=== PATIENT | male | born 1960 | race Caucasian/White ===

== ENCOUNTER 2017-10-04 09:00 | Outpatient (RCR) | payer OTHER, SELFPAY ==
--- NOTE | 2017-09-13 11:36 | PT.OTN ---
Addendum entered and electronically signed by Ciera Hernandez, PT 09/13/17 13:28: Transition note: On September 13, 2017 our therapy services consisting of Speech, Occupational, and Physical Therapy transitioned from the [employer] electronic documentation system to a new [employer] electronic documentation system.?? All documentation prior to September 13 can be found under [employer] saved data. From September 13 forward all medical record documentation will be in [employer] 6.1. Original Note: Physical Therapy Treatment Note PT-OP-C Subjective Start: 09/13/17 11:10 Freq: Status: Active Protocol: Activity Type Activity Date Activity User E-Sign Co-Sign Detail Recorded Client Recorded Date Recorded By Document 09/13/17 11:12 [facility] [email or web address] 09/13/17 11:34 [facility] 09/13/17 11:12 OP-PT Subjective [Patient Comments] -Patient Comments Pt reports he has increased his weights for his lifting, but just notes general muscle soreness (B) from taking time off from lifting. Reports he noticed when diong all pulling & twisting motion at work, he is doing a lot of twisting. -Patient Reported Progress Improving PT-OP-Q Treatments Start: 09/13/17 11:10 Freq: Status: Active Protocol: Activity Type Activity Date Activity User E-Sign Co-Sign Detail Recorded Client Recorded Date Recorded By Document 09/13/17 11:12 [facility] [email or web address] 09/13/17 11:34 [facility] 09/13/17 11:12 Therapeutic Exercises [Supine Exercises] 2 -Supine Exercise Name Foam roll: Habd , abd, flex -Reps/Minutes 4 -Comments stopped abd d/t pain 1 -Supine Exercise Name chest press -Side bilateral -Resistance 12# each hand -Reps/Minutes x10 [Prone Exercises] 2 -Prone Exercise Name 90/90 ER -Side bilateral -Resistance 0#- 2# were painful -Reps/Minutes 12 -Comments w/cueing for LT activaition 1 -Prone Exercise Name scaption -Side bilateral -Resistance 2# -Reps/Minutes 15 -Comments w/cueing for LT activation [Sitting Exercises] 1 -Sitting Exercise Name 1st rib self mob -Side right -Comments SB with scapular depression Manual Therapy Treatment [Soft Tissue Mobilization] 1 -Body Location scalenes -Mobilization Type Sustained Pressure -Intensity/Depth Moderate -Body Position Sidelying -Comments x8' [Joint Mobilizations] 2 -Joint 1st rib mob -Grade III -Body Position Sitting -Reps/Duration 4 min -Comments FM w/ sidebending of neck 1 -Joint Thoracic -Grade III -Reps/Duration 12 min -Comments PA T1-2 FM w/ cover position transverse T1-3 L FM w/cover position PA & UPA with deep breathing & HAbd T3-7 Neuro Re-Education Treatment [Movement Re-Education] -Movement Re-education Activities PNF scapular post depression COI x6 min R Self-Care/Home Management Treatment [Education] -Patient Education Home Exercise Program -Caregiver Education edu to do stretches after working d/t work requiring poor posture x3 ' PT-OP-T Assessment and Plan Start: 09/13/17 11:10 Freq: Status: Active Protocol: Activity Type Activity Date Activity User E-Sign Co-Sign Detail Recorded Client Recorded Date Recorded By Document 09/13/17 11:12 [facility] [email or web address] 09/13/17 11:34 [facility] 09/13/17 11:12 Physical Therapy Assessment [Assessment Summary] -Assessment Pt is improving with his ROM, but is limited in upper rib & thoracic mobility, which creates inc tension on UT during exercises. Pt has tight scalenes & still impaired scapulohumeral mechanics. Physical Therapy Plan [Next Visit Focus/Plan] -Next Visit Plan Re-eval ROM & strength. Cont end range PNF patterns w/ SC & AC mobs Current Diagnoses Pain in right shoulder (09/13/17) Bicipital tendinitis, right shoulder (09/13/17) Abnormal posture (09/13/17) Weakness (09/13/17)
--- NOTE | 2017-09-20 09:50 | PT.OTN ---
Current Diagnoses Pain in right shoulder (09/20/17) Bicipital tendinitis, right shoulder (09/20/17) Abnormal posture (09/20/17) Weakness (09/20/17) Physical Therapy Treatment Note PT-OP-A Visit Information Start: 09/20/17 09:00 Freq: Status: Active Protocol: Activity Type Activity Date Activity User E-Sign Co-Sign Detail Recorded Client Recorded Date Recorded By Document 09/20/17 09:00 [facility] [id number] 09/20/17 09:49 [facility] 09/20/17 09:00 Out-Patient Physical Therapy Visit Information [Visit Information] -Visit Type Treatment Note -Visit Start Time 09:00 -Visit Stop Time 09:45 -Total Visit Minutes 45 -Number of TOPOGRAPHICAL SURVEYOR Visits 0 PT-OP-C Subjective Start: 09/13/17 11:10 Freq: Status: Active Protocol: Activity Type Activity Date Activity User E-Sign Co-Sign Detail Recorded Client Recorded Date Recorded By Document 09/20/17 09:00 [facility] [id number] 09/20/17 09:49 [facility] 09/20/17 09:00 OP-PT Subjective [Patient Comments] -Patient Comments Reports cont aching but overall better. PT-OP-Q Treatments Start: 09/13/17 11:10 Freq: Status: Active Protocol: Activity Type Activity Date Activity User E-Sign Co-Sign Detail Recorded Client Recorded Date Recorded By Document 09/20/17 09:00 [facility] [id number] 09/20/17 09:49 [facility] 09/20/17 09:00 Therapeutic Exercises [Supine Exercises] 1 -Supine Exercise Name chest press w/o weight w/ focus on scap stability [Prone Exercises] 2 -Prone Exercise Name 90/90 ER -Side bilateral -Resistance 0#- 2# were painful -Reps/Minutes 12 -Comments w/cueing for LT activaition 1 -Prone Exercise Name scaption -Side bilateral -Resistance 2# -Reps/Minutes 15 -Comments w/cueing for LT activation [Standing Exercises] 1 -Standing Exercise Name IR -Resistance lvl 1 Manual Therapy Treatment [Soft Tissue Mobilization] 2 -Body Location infraspinatus -Mobilization Type Rolling -Intensity/Depth Moderate -Body Position Sidelying 1 -Body Location scalenes -Mobilization Type Sustained Pressure -Intensity/Depth Moderate -Body Position Sidelying [Joint Mobilizations] 3 -Joint T2 -Direction PA & transverse L FM 2 -Joint 1st rib mob -Grade III -Body Position Sitting -Reps/Duration 4 min -Comments FM w/ sidebending of neck [Manual Techniques] 1 -Type PNF post depression COI PT-OP-T Assessment and Plan Start: 09/13/17 11:10 Freq: Status: Active Protocol: Activity Type Activity Date Activity User E-Sign Co-Sign Detail Recorded Client Recorded Date Recorded By Document 09/20/17 09:00 [facility] [id number] 09/20/17 09:49 [facility] 09/20/17 09:00 Physical Therapy Assessment [Assessment Summary] -Assessment No clicking during activity after pt focused on scapular position. Pt had been doing 8# w/ ER & scaption so was adjsuted to 3 # to be more appropriate. Physical Therapy Plan [Next Visit Focus/Plan] -Next Visit Plan End range joint mobs
--- NOTE | 2017-09-27 09:49 | PT.OTN ---
Current Diagnoses Pain in right shoulder (09/27/17) Bicipital tendinitis, right shoulder (09/27/17) Abnormal posture (09/27/17) Weakness (09/27/17) Physical Therapy Treatment Note PT-OP-A Visit Information Start: 09/20/17 09:00 Freq: Status: Active Protocol: Document 09/27/17 09:01 [facility] (Rec: 09/27/17 09:49 [facility] [id number]) Out-Patient Physical Therapy Visit Information Visit Information Visit Type Treatment Note Visit Start Time 09:00 Visit Stop Time 09:40 Total Visit Minutes 40 PT-OP-C Subjective Start: 09/13/17 11:10 Freq: Status: Active Protocol: Document 09/27/17 09:00 [facility] (Rec: 09/27/17 09:48 [facility] [id number]) OP-PT Subjective Patient Comments Patient Comments Pt kayaked the other day and had pain that lasted about 1 day after and started after. No pain with weights, but cracking. PT-OP-Q Treatments Start: 09/13/17 11:10 Freq: Status: Active Protocol: Document 09/27/17 09:00 [facility] (Rec: 09/27/17 09:48 [facility] [id number]) Therapeutic Exercises Supine Exercises 1 Supine Exercise Name chest press w/o weight w/ focus on scap stability Side bilateral Resistance 12# each hand Reps/Minutes x10 Standing Exercises 3 Standing Exercise Name press Resistance progression from 0-4 lb Reps/Minutes 20 Comments focus on scapular pattern 2 Standing Exercise Name Hadd Resistance L3 Manual Therapy Treatment Soft Tissue Mobilization 1 Body Location scalenes Mobilization Type Sustained Pressure Intensity/Depth Moderate Body Position Sidelying Joint Mobilizations 5 Joint AC joint Direction ventral 4 Joint GH Direction post translation Comments FM 2 Joint 1st rib mob Grade III Body Position Supine Comments FM Hadd Manual Techniques 1 Type PNF post depression COI PT-OP-T Assessment and Plan Start: 09/13/17 11:10 Freq: Status: Active Protocol: Document 09/27/17 09:00 [facility] (Rec: 09/27/17 09:48 [facility] [id number]) Physical Therapy Assessment Assessment Summary Assessment Pt improving with joint mobility & overall strength, but cont to require re edu for movement patterns. Physical Therapy Plan Frequency and Duration Frequency of Treatment 1x/Week Plan of Care End Date 10/15/17 Next Visit Focus/Plan Next Visit Plan End range joint mobs
--- NOTE | 2017-10-04 13:57 | PT.OTN ---
Current Diagnoses Pain in right shoulder (10/04/17) Bicipital tendinitis, right shoulder (10/04/17) Abnormal posture (10/04/17) Weakness (10/04/17) Physical Therapy Treatment Note PT-OP-A Visit Information Start: 09/20/17 09:00 Freq: Status: Active Protocol: Document 10/04/17 09:00 [facility] (Rec: 10/04/17 13:57 [facility] [id number]) Out-Patient Physical Therapy Visit Information Visit Information Visit Type Treatment Note Visit Start Time 09:00 Visit Stop Time 09:45 Total Visit Minutes 45 PT-OP-C Subjective Start: 09/13/17 11:10 Freq: Status: Active Protocol: Document 10/04/17 09:00 [facility] (Rec: 10/04/17 13:57 [facility] [id number]) OP-PT Subjective Patient Comments Patient Comments Reports he tried the sleeping positions and has woken up less at night. Pain is not constant. PT-OP-Q Treatments Start: 09/13/17 11:10 Freq: Status: Active Protocol: Document 10/04/17 09:00 [facility] (Rec: 10/04/17 13:57 [facility] [id number]) Therapeutic Exercises Standing Exercises 4 Standing Exercise Name overhead press w/retract Resistance L2 Reps/Minutes 12 Manual Therapy Treatment Soft Tissue Mobilization 2 Body Location infraspinatus Mobilization Type Rolling Intensity/Depth Moderate Body Position Sidelying 1 Body Location scalenes & UT Mobilization Type Rolling Sustained Pressure Intensity/Depth Moderate Body Position Sidelying Joint Mobilizations 5 Joint AC joint Direction ventral 4 Joint GH Direction post & inf translation Comments FM PT-OP-T Assessment and Plan Start: 09/13/17 11:10 Freq: Status: Active Protocol: Document 10/04/17 09:00 [facility] (Rec: 10/04/17 13:57 [facility] [id number]) Physical Therapy Assessment Assessment Summary Assessment Pt has cont scalene & UT tightness limited scapular depression & mobility. Pt encouraged to cont to stretch this region. Able to tolerate overhead press with tband retract Physical Therapy Plan Frequency and Duration Frequency of Treatment 1x/Week Plan of Care End Date 10/15/17 Next Visit Focus/Plan Next Visit Plan Re-assess next visit Please Sign and Return: I have reviewed this Plan of Care and certify that the skilled therapy services above are required to meet the patient???s needs. Physician Signature Date Printed Name and Credentials Clinical Instructor Signature Printed Name and Credentials
--- NOTE | 2018-01-10 08:54 | PT.OPDS ---
Current Diagnoses Pain in right shoulder (10/04/17) Bicipital tendinitis, right shoulder (10/04/17) Abnormal posture (10/04/17) Weakness (10/04/17) Provider Visit Care Team Role Provider Type Alex Knox MD Attending Provider Physician Family Provider Primary Care Provider Specialty: Family Practice Address: [address] [place] [address], [id number] Email: Discharge Summary PT-OP-C Subjective Start: 09/13/17 11:10 Freq: Status: Active Protocol: Document 10/04/17 09:00 [facility] (Rec: 10/04/17 13:57 [facility] [id number]) OP-PT Subjective Patient Comments Patient Comments Reports he tried the sleeping positions and has woken up less at night. Pain is not constant. PT-OP-T Assessment and Plan Start: 09/13/17 11:10 Freq: Status: Active Protocol: Document 01/10/18 08:53 [facility] (Rec: 01/10/18 08:54 [facility] [id number]) Physical Therapy Assessment Assessment Summary Assessment Pt has made good progress with strength & return to activity with dec pain, but at last PT session still had some dec functional ability. Physical Therapy Plan Discharge Physical Therapy Discharge Reasons No Longer Attending PT Discharge Comments Pt cancelled all further appointments and did not schedule further. Referal and POC is . If pt requires further PT, please send new referral.
== END 2018-01-13 09:50 ==
LOC: PHYS 09:00
PROVIDERS: Family Provider Family Medicine; PCP Family Medicine; Visit Provider Family Medicine
DX: M25.511 Pain in right shoulder (principal); M75.21 Bicipital tendinitis, right shoulder; R29.3 Abnormal posture; R53.1 Weakness
CPT/HCPCS: 97110; 97140

== ENCOUNTER → 2019-12-18 08:50 | Outpatient (CLI) | payer OTHER, SELFPAY ==
[2019-12-19 18:11] LABS: COVID19 Sendout Not Detected (Not Detect)
== END ==
PROVIDERS: Family Provider Family Medicine; PCP Family Medicine; Visit Provider Physician Assistant
DX: Z11.59 Encounter for screening for other viral diseases (principal)
CPT/HCPCS: 87635

== ENCOUNTER 2019-12-21 12:01 | Day surgery (SDC) | payer OTHER, SELFPAY ==
--- NOTE | 2019-12-21 11:24 | P.HP_ITS ---
History of Present Illness History of Present Illness Date Patient Seen: 12/21/19 Time Patient Seen: 12:56 Chief complaint: SDC Narrative: 59 year old male comes in today for consideration of a screening colonoscopy. Last colonoscopy on 02/27/2008, significant for a 4-5 periappendiceal polyps, biopsy showed colonic mucosa with prominent lymphoid aggregate, left sided diverticulosis, and small internal hemorrhoids. There have been no lower GI symptoms suggesting disease such as change in bowel habits, bleeding, abdominal pain or anemia. He does have a family history of colon polyps. Overall health issues have been stable, including no major cardiac events for at least 6 weeks. PCP: Dr. Knox Past medical history: Hypertension Hyperlipidemia Diverticulosis Sacroiliitis Past surgical history: Colonoscopy 2007, diverticulosis and external hemorrhoids Achilles tendon repair Family history: Mother: Colon polyps Social history: [employer], [employer]. to [employer]. Meds Home Medications and Allergies Home Medications Medication Instructions Recorded Confirmed Type lisinopril 20 mg PO QDAY #0 02/01/17 History Allergies Allergy/AdvReac Type Severity Reaction Status Date / Time No Known Drug Allergies Allergy Verified 12/21/19 10:37 Review of Systems Review of Systems ROS: Yes All systems reviewed with the patient and are negative except as otherwise documented Exam Narrative Exam Narrative: GENERAL: Alert and oriented, appearing stated age and in no acute distress. HEENT: Head normocephalic/atraumatic. Neck soft and supple, no lymphadenopathy. LUNGS: Clear to ausculation bilaterally, no wheezes, rhonchi or rales. CV: Normal S1 and S2 with regular rate and rhythm, no audible murmurs, rubs or gallops. ABDOMEN: Soft, non-tender, non-distended, no organomegaly. Positive bowel sounds. EXTREMITIES: No clubbing, cyanosis, or edema. NEURO: Cranial nerves II through XII grossly intact, no focal deficits. PSYCH: Alert and oriented x 3. SKIN: No concerning lesions. Assessment & Plan Assessment & Plan narrative: 1. Family history of colon polyps 2. History of diverticulosis 3. Screening for colon cancer Plan for colonoscopy. The nature and character of the procedure as well as anticipated results were discussed. The possibility of not completing the procedure was also discussed. Possible complications including aspiration pneumonia, bleeding, perforation and reaction to medications either for sedation or preparation and missed lesions were discussed. Questions were answered and proceeding to the colonoscopy was elected. Informed consent signed. I sincerely appreciate the referral allowing me to participate in this patient's care. Please contact me with any questions or concerns.
--- NOTE | 2019-12-21 11:32 | PM.OP.ENDO ---
Operative Date/Time/Diagnoses Date of procedure: 12/21/19 Time of procedure: 12:56 Pre-op diagnosis: 1. Family history of colon polyps 2. History of diverticulosis 3. Screening for colon cancer Post-op diagnosis: other (1. Normal colonoscopy, 2. Diverticulosis ) Procedure & Clinicians Study performed: Colonoscopy Same procedure as scheduled: Yes Indications: 1. Family history of colon polyps 2. History of diverticulosis 3. Screening for colon cancer Surgeon: Tanya Lopez Procedure Notes SCOAP/Timeout: 13:01 Procedure in detail: ENDOSCOPIST: Tanay Lopez MD Sedation RN: Linsey Mir RN Sedation start time: 13:04 Sedation end time: 13:25 PROCEDURE: Colonoscopy INDICATIONS: 1. Family history of colon polyps 2. History of diverticulosis 3. Screening for colon cancer MEDICATION: Levsin 0.125 mg sublingual, incremental doses of Versed and fentanyl until appropriate level sedation achieved. ASA CLASS: 2 CECAL WITHDRAWAL TIME: 12 minutes COMPLICATIONS: None. EXTENT OF PROCEDURE: Cecum. QUALITY OF PREP: Good with portions of liquid stool. PROCEDURE: Prior to insertion of the colonoscope, a digital rectal examination was accomplished with circumferential palpation of the distal rectal mucosa without significant findings being noted. The high-definition colonoscope was passed into the rectum in the usual fashion and advanced over to the cecum without difficulty. The ileocecal valve, appendiceal stoma, and medial wall all could be inspected and other than a few scattered diverticuli, no abnormalities were seen. ASCENDING COLON: As the colonoscope was withdrawn, care was taken to expose and inspect the haustral folds and a few scattered diverticuli were seen. HEPATIC FLEXURE: Minor diverticulosis, otherwise, normal no polyps or other abnormalities. TRANSVERSE COLON: Minor diverticulosis, otherwise, normal no polyps or other abnormalities. DESCENDING COLON: Moderate diverticulosis, otherwise, normal no polyps or other abnormalities. SIGMOID COLON: Moderate diverticulosis, otherwise, normal no polyps or other abnormalities. RECTUM: Normal. J maneuver was produced. There was no significant perianal disease. The J maneuver was broken. The remainder of the rectum was inspected and there was no external hemorrhoid disease. The scope was withdrawn. IMPRESSION: 1. Normal colonoscopy 2. Pancolonic diverticulosis PLAN: 1. Repeat colonoscopy in 5 years secondary to family history. The possibility of a missed lesion including a malignancy has been discussed with the patient previously. Potential alarm symptoms have been discussed and should be reported immediately. Complications: none Post-procedure Recommendations: Colonscopy in 5 years Follow up: as needed Disposition: PACU
[2019-12-21] MEDS: LACTATED RINGERS 1,000 ML 200 ML IV (12:16)
[2019-12-21] MEDS: HYOSCYAMINE 0.125 MG TABLET PO (12:20)
[2019-12-21 12:22] VITALS: BP 175/101; PULSE 53; RESP 16; TEMP 36.3; O2SAT 98; BMI 26.4
[2019-12-21] MEDS: MIDAZOLAM 5 MG/5 ML VIAL IV ×3 (13:04→13:14)
[2019-12-21] MEDS: fentaNYL 250 MCG/5 ML INJ IV ×2 (13:04→13:09)
[2019-12-21 13:30] VITALS: BP 179/89; PULSE 50; RESP 13; O2SAT 99
[2019-12-21 13:36] VITALS: BP 162/101; PULSE 56; RESP 15; TEMP 36.6; O2SAT 100
[2019-12-21 13:43] VITALS: BP 154/90; PULSE 47; RESP 16; O2SAT 100
[2019-12-21 13:46] VITALS: BP 154/94; PULSE 45; RESP 11; TEMP 36.6; O2SAT 100
[2019-12-21 13:51] VITALS: BP 143/87; PULSE 46; RESP 16; O2SAT 99
== END 2019-12-21 14:14 | disposition home or self-care (01) ==
PROVIDERS: PCP Family Medicine; Referring Provider Student in an Organized Health Care Education/Training Program; Visit Provider Student in an Organized Health Care Education/Training Program
PROC: 0DJD8ZZ Inspection of Lower Intestinal Tract, Via Natural or Artificial Opening Endoscopic (ICD-10-PCS; CPT 45378; principal; 2019-12-21 13:00)
DX: Z12.11 Encounter for screening for malignant neoplasm of colon (principal); Z86.010 Personal history of colon polyps; I10 Essential (primary) hypertension; E78.5 Hyperlipidemia, unspecified; K57.30 Diverticulosis of large intestine without perforation or abscess without bleeding
CPT/HCPCS: 45378; J2250; J3010

== ENCOUNTER → 2021-03-20 09:00 | Outpatient (CLI) | payer OTHER, SELFPAY ==
[2021-03-20 10:13] LABS: Hemoglobin A1C% w Est Avg Glu 5.6 % (4.0-6.0)
[2021-03-20 10:22] LABS: Add Manual Diff / Slide Review NO; Basophils Absolute Auto 0 /uL (0-100); Basophils Percent Auto 1.2 % (0-2); Eosinophils Absolute Auto 100 /uL (0-450); Eosinophils Percent Auto 1.7 % (2-4); Hematocrit 41.3 % (41-53); Hemoglobin 14.6 g/dL (13.5-17.5); Lymphocytes Absolute Auto 1200 /uL (1100-4500); Lymphocytes Percent Auto 31.6 % (25-40); Mean Corpuscular HGB Conc 35.4 % (30-36); Mean Corpuscular Hemoglobin 33.8 PG (26-34); Mean Corpuscular Volume 95.7 fL (80-100); Monocytes Absolute Auto 700 /uL (0-900); Monocytes Percent Auto 17.1 % (3-14); Neutrophils Absolute Auto 1900 /uL (1500-7000); Neutrophils Percent Auto 48.4 % (50-75); Platelet Count 260 X10^3/uL (150-400); Red Blood Cell Count 4.32 X10^6/uL (4.5-5.9); Red Cell Distribution Width 12.5 % (11.6-14.8); White Blood Cell Count 3.9 X10^3/uL (4.5-11.0)
[2021-03-20 10:38] LABS: Alanine Aminotransferase 44 IU/L (<50); Albumin 4.8 g/dL (3.5-5.0); Albumin Globulin Ratio 1.5 (1.0-2.8); Alkaline Phosphatase 43 U/L (38-126); Aspartate Aminotransferase 34 IU/L (17-59); BUN Creatinine Ratio 16.3 (6-22); Bilirubin Total 1.3 mg/dL (0.2-1.3); Blood Urea Nitrogen 14 mg/dL (9-20); Calcium 9.9 mg/dL (8.4-10.2); Carbon Dioxide 24 mmol/L (22-32); Chloride 93 mmol/L (98-107); Cholesterol 206 mg/dL (140-199); Estimated Glomerular Filt Rate > 60.0 mL/min (>60); Globulin 3.1 g/dL (1.7-4.1); Glucose 109 mg/dL (80-110); HDL Cholesterol 73 mg/dL (40-60); HEMOLYSIS < 15 (0-50); LDL Cholesterol Calculated 117 mg/dL (<100); Potassium 4.6 mmol/L (3.4-5.1); Sodium 128 mmol/L (137-145); Total Protein 7.9 g/dL (6.3-8.2); Triglycerides 79 mg/dL (35-150)
[2021-03-20 11:07] LABS: TSH w/ Reflex to FT4 1.24 uIU/mL (0.47-4.68)
== END ==
PROVIDERS: PCP Family Medicine; Referring Provider Family Medicine; Visit Provider Family Medicine
DX: I10 Essential (primary) hypertension (principal); K57.90 Diverticulosis of intestine, part unspecified, without perforation or abscess without bleeding
CPT/HCPCS: 36415; 80053; 80061; 83036; 84443; 85025

== ENCOUNTER → 2021-04-03 15:57 | Outpatient (CLI) | payer OTHER, SELFPAY ==
[2021-04-03] MEDS: COVID-19 VACC #3, MRNA(MOD) 50 MCG/0.25 ML VIAL IM (16:22)
== END ==
PROVIDERS: PCP Family Medicine; Visit Provider Internal Medicine
DX: Z23 Encounter for immunization (principal)
CPT/HCPCS: 0013A; 91301

== ENCOUNTER → 2021-05-19 10:25 | Outpatient (CLI) | payer OTHER, SELFPAY ==
--- NOTE | 2021-05-19 10:26 | DI.RAD.S_ITS ---
PROCEDURE: XR LUMBAR SPINE 2-3V INDICATIONS: bilateral shoulder and low back pain TECHNIQUE: 2 views of the lumbar spine were acquired. COMPARISON: None. FINDINGS: Bones: 5 [id number] vertebrae are present. There is normal bony alignment. Degenerative endplate changes and bilateral facet arthrosis throughout lumbar spine is seen most prominent at L4-5 and L5-S1 levels. No vertebral body compression fractures. No suspicious bony lesions. Soft tissues: Overlying bowel gas pattern is normal. No suspicious soft tissue calcifications. IMPRESSION: Degenerative disc disease throughout lumbar spine more prominent at L4-5 and L5-S1 levels. No acute compression fracture or spondylolisthesis. Dictated by: Reynaldo Cheema M.D. on 05/19/2021 at 11:19 Approved by: Reynaldo Cheema M.D. on 05/19/2021 at 11:20
--- NOTE | 2021-05-19 10:26 | DI.RAD.S_ITS ---
PROCEDURE: XR SHOULDER LT MIN 2V INDICATIONS: bilateral shoulder and low back pain TECHNIQUE: 3 views of the shoulder were acquired. COMPARISON: None. FINDINGS: Bones: No fractures or dislocations. No suspicious bony lesions. Visualized ribs appear intact. Moderate left acromioclavicular joint osteoarthritis. Mild left glenohumeral joint osteoarthritis. Soft tissues: No suspicious soft tissue calcifications. IMPRESSION: No fracture. No acute osseous lesion. If symptoms and/or clinical suspicion for pathology persists, further assessment with repeat radiographs (7-10 days) or advanced imaging (e.g. CT, MRI or bone scan) should be considered. Dictated by: Cuca Grewal MD, PhD on 05/19/2021 at 15:54 Approved by: Cuca Grewal MD, PhD on 05/19/2021 at 15:54
--- NOTE | 2021-05-19 10:26 | DI.RAD.S_ITS ---
PROCEDURE: XR SHOULDER RT MIN 2V INDICATIONS: bilateral shoulder and low back pain TECHNIQUE: 3 views of the shoulder were acquired. COMPARISON: None. FINDINGS: Bones: No fractures or dislocations. No suspicious bony lesions. Visualized ribs appear intact. Mild periarticular osteophyte formation at the acromioclavicular and glenohumeral joints. Soft tissues: No suspicious soft tissue calcifications. IMPRESSION: Osteoarthritis. No acute fracture. No osseous lesion. If symptoms and/or clinical suspicion for pathology persist, further assessment with repeat, or advanced imaging (e.g., CT, MRI, or bone scan) may be helpful for further assessment. Dictated by: Viktor Lehman M.D. on 05/19/2021 at 10:55 Approved by: Viktor Lehman M.D. on 05/19/2021 at 10:57
== END ==
PROVIDERS: PCP Family Medicine; Referring Provider Family Medicine; Visit Provider Family Medicine
DX: M19.011 Primary osteoarthritis, right shoulder (principal); M19.012 Primary osteoarthritis, left shoulder; M51.36 Other intervertebral disc degeneration, lumbar region; M51.37 Other intervertebral disc degeneration, lumbosacral region; M25.511 Pain in right shoulder; M25.512 Pain in left shoulder; M54.50 Low back pain, unspecified
CPT/HCPCS: 72100; 73030

== ENCOUNTER 2021-12-30 16:45 | Outpatient (RCR) | payer OTHER, SELFPAY ==
--- NOTE | 2021-09-09 18:12 | PT.OIE ---
Current Diagnoses Primary osteoarthritis, unspecified shoulder (09/09/21) Spondylosis, unspecified (09/09/21) Muscle weakness (generalized) (09/09/21) Difficulty in walking, not elsewhere classified (09/09/21) Abnormal posture (09/09/21) Past Medical History (Last Updated 04/30/21 @ 09:42 by Willy Ahn MD) Ankle pain (~1993) Bilateral shoulder pain Diverticular disease Encounter for general adult medical examination with abnormal findings Eustachian tube dysfunction Fractures (~2007) History of ankle surgery (~2007) Hyperlipidemia Hyponatremia Low back pain Sacroiliitis Sinusitis Past Surgical History (Last Updated 10/25/20 @ 06:46 by Alena Bradley) Anesthesia History of ankle surgery (~2007) Visit Care Team Role Provider Type Willy Ahn MD Attending Provider Physician Family Provider Primary Care Provider Referring Provider Specialty: Family Practice Address: [address] [place] [address] Email: [email or web address] Physical Therapy Initial Evaluation PT-OP-A Visit Information Start: 09/08/21 17:49 Freq: Status: Active Protocol: Document 09/09/21 08:18 [facility] (Rec: 09/09/21 09:06 [facility] [id number]) Out-Patient Physical Therapy Visit Information Visit Information Visit Type Initial Evaluation Visit Start Time 08:20 Visit Stop Time 09:05 Total Visit Minutes 45 Visit Number 1 Number of ECONOMIC DEVELOPMENT COORDINATOR Visits 0 PT-OP-B Current Condition Start: 09/08/21 17:49 Freq: Status: Active Protocol: Document 09/09/21 08:18 [facility] (Rec: 09/09/21 09:06 [facility] [id number]) Current Condition History of Current Condition Onset Date chronic Current Complaints B shoulders and back History of Current Condition Pt reports he hurt L shoulder swimming on vacation and a wave pulled on it and after a couple days when back to its normal aching. Pt reports Pt had sacroiliatis and did PT for that and that helped. His back started bothering him a couple years ago after getting a new wallet and sitting on it hurt R LB but back pain stayed. He had weakness in R leg initially and numbness but that has gotten better w/use of inversion table and doing his exercises. Pt partially R shoulder a long time ago playing football and trying to hit a travon in his thigh and a doctor popped it back in place. He works out with dumbells every week but causes mild discomfort that lingers for short time. Occ sleep on it wrong, will wake w /it hurting. Occ hip pain when sleeps on soft mattress R mostly. Treatment Goals Patient/Caregiver Goals Improve ROM, make pain go away , prevent further degeneration PT-OP-C Subjective Start: 09/08/21 17:49 Freq: Status: Active Protocol: Document 09/09/21 08:18 [facility] (Rec: 09/09/21 09:06 [facility] [id number]) Patient Questionnaires Oswestry Low Back Index Oswestry Score 4/50 Quick Dash- Upper Extremity Quick Dash UE Score 6.8 OP-PT Pain Assessment Location LB Pain Location Details R lumbosacral Intensity 3 Scale Used Numeric (0 - 10) Description Aching Frequency Intermittent Variations/Patterns RLE weakness (most recent 1 wk ago)-moving around improves Pain Aggravating Factors Standing Other Pain Aggravating Factors backpacking, stiff in AM Other Pain Alleviating Factors inversion table, exercises( yoga, stretches,core) B shoulders Pain Location Details AC joint region R>L Intensity 4 Scale Used Numeric (0 - 10) Description Aching,Sharp,With Movement Frequency Intermittent Pain Aggravating Factors Lifting Other Pain Aggravating Factors pulling up, sleep on it funny, occ putting shirt on PT-OP-D Balance Start: 09/08/21 17:49 Freq: Status: Active Protocol: Document 09/09/21 08:18 [facility] (Rec: 09/09/21 09:06 [facility] [id number]) Balance Tests Single Limb Standing Single Limb- Right 30 sec Single Limb- Left slight shear L and trunk lean L 30 sec PT-OP-F Manual Assessment Start: 09/08/21 17:49 Freq: Status: Active Protocol: Document 09/09/21 08:18 [facility] (Rec: 09/09/21 09:06 [facility] [id number]) Manual Assessments Soft Tissue Assessment Soft Tissue Mobility Assessment QL R tight, pec tight B, UT, scalenes, LS R tight Joint Mobility Assessment Joint Mobility Assessment 1st rib elevated R, equal greater trochanter, R iliac crest minor higher PT-OP-G Mobility & Gait Start: 09/08/21 17:49 Freq: Status: Active Protocol: Document 09/09/21 08:18 [facility] (Rec: 09/09/21 09:06 [facility] [id number]) OP Gait Assessment Comments Gait Comments dec pelvis motion overall, L lat lean L PT-OP-J Posture/Palpation/Skin Start: 09/08/21 17:49 Freq: Status: Active Protocol: Document 09/09/21 08:18 [facility] (Rec: 09/09/21 09:06 [facility] [id number]) Posture Evaluation [facility] Postural Classification System [facility] Postural Classifications Posterior/Anterior Vertebral Compression Test 2 Elbow Flexion Test 1 Lumbar Protective Mechanism Left AP 1 Lumbar Protective Mechanism Right AP 3 Lumbar Protective Mechanism Left PA 3 Lumbar Protective Mechanism Right PA 2 Comments Posture Comments R shoulder more ant, scap ant tipped and abducted >L, L>R ER LE, flattened lumbar spine, inc kyphosis & fwd head PT-OP-K Range of Motion Start: 09/08/21 17:49 Freq: Status: Active Protocol: Document 09/09/21 08:18 [facility] (Rec: 09/09/21 09:06 [facility] [id number]) Lumbar Spine Range of Motion Lumbar Spine Active Degrees Flexion 30 Extension 10 Rotation Left 45 Rotation Right 40 Lateral Flexion Left 20 Lateral Flexion Right 22 Shoulder Goniometric Range of Motion Shoulder Right Active Flexion 154 Extension 50 Abduction 160 External Rotation at 90 degrees 85 Abduction External Rotation at 0 degrees Abduction 73 Internal Rotation Behind Back (text) T10 Comments click w/abd Left Active Flexion 136 Extension 54 Abduction 150 External Rotation at 90 degrees 78 Abduction External Rotation at 0 degrees Abduction 66 Internal Rotation Behind Back (text) T10 Comments clikcing and pain w/abd PT-OP-L Special Tests Start: 09/08/21 17:49 Freq: Status: Active Protocol: Document 09/09/21 08:18 [facility] (Rec: 09/09/21 09:06 [facility] [id number]) Special Tests Lumbar Spine Special Tests Slump Test Results positive r Shoulder Special Tests Ch [place] Impingement Test Results neg B Neer Impingement Test Results positive R [place] Test Test Results positive R Speed's Biceps Test Results positive B Empty Can Test Results neg B AC Joint Compression Test Results neg B PT-OP-M Strength Start: 09/08/21 17:49 Freq: Status: Active Protocol: Document 09/09/21 08:18 [facility] (Rec: 09/09/21 09:06 [facility] [id number]) Shoulder Strength Shoulder Manual Muscle Testing Right Flexion 4+ Good+ Extension 5 Normal Abduction (C5) 4 Good External Rotation 4 Good Internal Rotation 4+ Good+ Horizontal Abduction 5 Normal Horizontal Adduction 5 Normal Comments abd pain Left Flexion 4+ Good+ Abduction (C5) 4- Good- External Rotation 4 Good Internal Rotation 4+ Good+ Horizontal Abduction 4 Good Horizontal Adduction 4+ Good+ Comments pain abd & scaption, IR, Habd PT-OP-T Assessment and Plan Start: 09/08/21 17:49 Freq: Status: Active Protocol: Document 09/09/21 08:18 [facility] (Rec: 09/09/21 09:06 [facility] [id number]) Physical Therapy Assessment Rehab Potential Rehabilitation Potential Good Evaluation Complexity Number of Personal Factors/Comorbidities 3 or More Number of Body Systems Impaired 4 or More Clinical Presentation at Evaluation Evolving Impairments Impairments Activity Tolerance,Functional Activities,Functional Mobility ,Gait,Pain,Posture,ROM,Soft Tissue Mobility,Strength Goals activities Short Term Goal (STG) Pt will have imrpoved ROM in B shoulders to allow no pain during ADLs STG Duration 10/09/21 Dock Supervisor Goal (LTG) Pt will be able to stand as needed and back pack and lift w/o inc back pain or shoulder pain. LTG Duration 11/09/21 posture Dock Supervisor Goal (LTG) Pt will show improved postural alignment by scoring at least 4/5 on VCT. LTG Duration 11/09/21 strength Short Term Goal (STG) Pt will be indep w/HEP STG Duration 10/23/21 Usp Goal (LTG) pt will show improved stability as noted by 5/5 UE and LE MMT and at least 4/5 on LPM and EFT in order to allow him to do typical active lifestyle w/o inc pain. LTG Duration 11/09/21 Assessment Summary Assessment Pt presents w/chronic B shoulder and back pain w/ occasional weakness of RLE where it gives out. Pt does show dec postural stability and dec scapular stability which likely affects both problems. Notable ROM limitations in spine and L>R shoulders today and dec shoulder strength overall. Shoulder testing is inconsitant as he was positive for speeds biceps but does not have biceps tenderness or pain w/elbow flexion or shoulder flexion, only scaption. He was positive for neer impingment on R but not L and empty can was negative w/ more pain noted w/thumb up position. Pain could be d/t degeneration, but further testing will be needed to help determine the cause. He would benefit from skilled PT to work on scap stability, lumbar stability, gait, posture and manual to decrease pain. Physical Therapy Plan Frequency and Duration Frequency of Treatment 1-2x/week Duration of Treatment 2 months Plan of Care Start Date 09/09/21 Plan of Care End Date 11/09/21 Therapeutic Interventions Therapeutic Interventions Aquatic Therapy,Balance Training,Gait Training,Home Exercise Program,Joint Mobilizations,Manual Therapy, Neuromuscular Re-education, Patient/Caregiver Education, Self-Care/Home Management,Soft Tissue Mobilization,Taping, Therapeutic Activities, Therapeutic Exercises Modalities Cold Pack/Ice Massage,Electric Stimulation,Hot Packs, Infrared Therapy,Traction- Mechanical,Ultrasound Next Visit Focus/Plan Next Note Type Treatment Note Next Visit Plan LE MMT, further shoulder special tests, manual work on shoulders & pelvis, foam roll exercises for HEP
--- NOTE | 2021-09-09 18:12 | PT.OPPOC ---
Physical, Occupational & Speech Therapy At [facility] Current Diagnoses Primary osteoarthritis, unspecified shoulder (09/09/21) Spondylosis, unspecified (09/09/21) Muscle weakness (generalized) (09/09/21) Difficulty in walking, not elsewhere classified (09/09/21) Abnormal posture (09/09/21) Visit Care Team Role Provider Type Willy Ahn MD Attending Provider Physician Family Provider Primary Care Provider Referring Provider Specialty: Family Practice Address: [address] [place] [address] Email: [email or web address] Plan Of Care PT-OP-T Assessment and Plan Start: 09/08/21 17:49 Freq: Status: Active Protocol: Document 09/09/21 08:18 [facility] (Rec: 09/09/21 09:06 [facility] [id number]) Physical Therapy Assessment Rehab Potential Rehabilitation Potential Good Evaluation Complexity Number of Personal Factors/Comorbidities 3 or More Number of Body Systems Impaired 4 or More Clinical Presentation at Evaluation Evolving Impairments Impairments Activity Tolerance,Functional Activities,Functional Mobility ,Gait,Pain,Posture,ROM,Soft Tissue Mobility,Strength Goals activities Short Term Goal (STG) Pt will have imrpoved ROM in B shoulders to allow no pain during ADLs STG Duration 10/09/21 Care Home Goal (LTG) Pt will be able to stand as needed and back pack and lift w/o inc back pain or shoulder pain. LTG Duration 11/09/21 posture Residential Specialist Goal (LTG) Pt will show improved postural alignment by scoring at least 4/5 on VCT. LTG Duration 11/09/21 strength Short Term Goal (STG) Pt will be indep w/HEP STG Duration 10/23/21 Residential Specialist Goal (LTG) pt will show improved stability as noted by 5/5 UE and LE MMT and at least 4/5 on LPM and EFT in order to allow him to do typical active lifestyle w/o inc pain. LTG Duration 11/09/21 Assessment Summary Assessment Pt presents w/chronic B shoulder and back pain w/ occasional weakness of RLE where it gives out. Pt does show dec postural stability and dec scapular stability which likely affects both problems. Notable ROM limitations in spine and L>R shoulders today and dec shoulder strength overall. Shoulder testing is inconsitant as he was positive for speeds biceps but does not have biceps tenderness or pain w/elbow flexion or shoulder flexion, only scaption. He was positive for neer impingment on R but not L and empty can was negative w/ more pain noted w/thumb up position. Pain could be d/t degeneration, but further testing will be needed to help determine the cause. He would benefit from skilled PT to work on scap stability, lumbar stability, gait, posture and manual to decrease pain. Physical Therapy Plan Frequency and Duration Frequency of Treatment 1-2x/week Duration of Treatment 2 months Plan of Care Start Date 09/09/21 Plan of Care End Date 11/09/21 Therapeutic Interventions Therapeutic Interventions Aquatic Therapy,Balance Training,Gait Training,Home Exercise Program,Joint Mobilizations,Manual Therapy, Neuromuscular Re-education, Patient/Caregiver Education, Self-Care/Home Management,Soft Tissue Mobilization,Taping, Therapeutic Activities, Therapeutic Exercises Modalities Cold Pack/Ice Massage,Electric Stimulation,Hot Packs, Infrared Therapy,Traction- Mechanical,Ultrasound Next Visit Focus/Plan Next Note Type Treatment Note Next Visit Plan LE MMT, further shoulder special tests, manual work on shoulders & pelvis, foam roll exercises for HEP Plan of Care Dates Plan of Care Start Date 09/09/21 Plan of Care End Date 11/09/21 Electronically Signed by: Ciera Hernandez, PT 09/09/21 [id number] If you are in agreement with this Plan of Care, please return a signed and dated copy. I have reviewed this Plan of Care and certify that the skilled therapy services above are required to meet the patient?s needs. Physician Signature Date Printed Name and Credentials Clinical Instructor Signature Printed Name and Credentials
--- NOTE | 2021-09-15 12:16 | PT.OTN ---
Current Diagnoses Primary osteoarthritis, unspecified shoulder (09/15/21) Spondylosis, unspecified (09/15/21) Muscle weakness (generalized) (09/15/21) Difficulty in walking, not elsewhere classified (09/15/21) Abnormal posture (09/15/21) Physical Therapy Treatment Note PT-OP-A Visit Information Start: 09/08/21 17:49 Freq: Status: Active Protocol: Document 09/15/21 07:31 [facility] (Rec: 09/15/21 12:16 [facility] [id number]) Out-Patient Physical Therapy Visit Information Visit Information Visit Type Treatment Note Visit Start Time 08:18 Visit Stop Time 09:00 Total Visit Minutes 42 Visit Number 2 Number of BOTTLED BEVERAGE INSPECTOR Visits 0 PT-OP-B Current Condition Start: 09/08/21 17:49 Freq: Status: Active Protocol: Document 09/09/21 08:18 [facility] (Rec: 09/09/21 09:06 [facility] [id number]) Current Condition History of Current Condition Onset Date chronic Current Complaints B shoulders and back History of Current Condition Pt reports he hurt L shoulder swimming on vacation and a wave pulled on it and after a couple days when back to its normal aching. Pt reports Pt had sacroiliatis and did PT for that and that helped. His back started bothering him a couple years ago after getting a new wallet and sitting on it hurt R LB but back pain stayed. He had weakness in R leg initially and numbness but that has gotten better w/use of inversion table and doing his exercises. Pt partially R shoulder a long time ago playing football and trying to hit a travon in his thigh and a doctor popped it back in place. He works out with dumbells every week but causes mild discomfort that lingers for short time. Occ sleep on it wrong, will wake w /it hurting. Occ hip pain when sleeps on soft mattress R mostly. Treatment Goals Patient/Caregiver Goals Improve ROM, make pain go away , prevent further degeneration PT-OP-C Subjective Start: 09/08/21 17:49 Freq: Status: Active Protocol: Document 09/15/21 07:31 [facility] (Rec: 09/15/21 12:16 [facility] [id number]) OP-PT Subjective Patient Comments Patient Comments Pt reports R ribs have been bothering him recently under shoulder blade PT-OP-D Balance Start: 09/08/21 17:49 Freq: Status: Active Protocol: Document 09/09/21 08:18 [facility] (Rec: 09/09/21 09:06 [facility] [id number]) Balance Tests Single Limb Standing Single Limb- Right 30 sec Single Limb- Left slight shear L and trunk lean L 30 sec PT-OP-F Manual Assessment Start: 09/08/21 17:49 Freq: Status: Active Protocol: Document 09/09/21 08:18 [facility] (Rec: 09/09/21 09:06 [facility] [id number]) Manual Assessments Soft Tissue Assessment Soft Tissue Mobility Assessment QL R tight, pec tight B, UT, scalenes, LS R tight Joint Mobility Assessment Joint Mobility Assessment 1st rib elevated R, equal greater trochanter, R iliac crest minor higher PT-OP-G Mobility & Gait Start: 09/08/21 17:49 Freq: Status: Active Protocol: Document 09/09/21 08:18 [facility] (Rec: 09/09/21 09:06 [facility] [id number]) OP Gait Assessment Comments Gait Comments dec pelvis motion overall, L lat lean L PT-OP-J Posture/Palpation/Skin Start: 09/08/21 17:49 Freq: Status: Active Protocol: Document 09/09/21 08:18 [facility] (Rec: 09/09/21 09:06 [facility] [id number]) Posture Evaluation [facility] Postural Classification System [facility] Postural Classifications Posterior/Anterior Vertebral Compression Test 2 Elbow Flexion Test 1 Lumbar Protective Mechanism Left AP 1 Lumbar Protective Mechanism Right AP 3 Lumbar Protective Mechanism Left PA 3 Lumbar Protective Mechanism Right PA 2 Comments Posture Comments R shoulder more ant, scap ant tipped and abducted >L, L>R ER LE, flattened lumbar spine, inc kyphosis & fwd head PT-OP-K Range of Motion Start: 09/08/21 17:49 Freq: Status: Active Protocol: Document 09/09/21 08:18 [facility] (Rec: 09/09/21 09:06 [facility] [id number]) Lumbar Spine Range of Motion Lumbar Spine Active Degrees Flexion 30 Extension 10 Rotation Left 45 Rotation Right 40 Lateral Flexion Left 20 Lateral Flexion Right 22 Shoulder Goniometric Range of Motion Shoulder Right Active Flexion 154 Extension 50 Abduction 160 External Rotation at 90 degrees 85 Abduction External Rotation at 0 degrees Abduction 73 Internal Rotation Behind Back (text) T10 Comments click w/abd Left Active Flexion 136 Extension 54 Abduction 150 External Rotation at 90 degrees 78 Abduction External Rotation at 0 degrees Abduction 66 Internal Rotation Behind Back (text) T10 Comments clikcing and pain w/abd PT-OP-L Special Tests Start: 09/08/21 17:49 Freq: Status: Active Protocol: Document 09/15/21 07:31 [facility] (Rec: 09/15/21 12:16 [facility] [id number]) Special Tests Shoulder Special Tests Lateral Crank Test Test Results pain w/IR L, neg R Slap Prehention test Test Results neg B PT-OP-M Strength Start: 09/08/21 17:49 Freq: Status: Active Protocol: Document 09/15/21 07:31 [facility] (Rec: 09/15/21 12:16 [facility] [id number]) Hip Strength Hip Manual Muscle Testing Right Flexion (L2) 4 Good Extension (S1) 3+ Fair+ Abduction 4- Good- External Rotation 4 Good Internal Rotation 5 Normal Left Flexion (L2) 4 Good Extension (S1) 3+ Fair+ Abduction 4+ Good+ External Rotation 5 Normal Internal Rotation 5 Normal Knee Strength Knee Manual Muscle Testing Right Flexion (S2) 5 Normal Extension (L3) 5 Normal Left Flexion (S2) 5 Normal Extension (L3) 5 Normal Ankle/Foot Strength Ankle and Foot Manual Muscle Testing Right Dorsiflexion (L4) 5 Normal Plantarflexion (S1) 5 Normal Comments more difficulty during heel raises to keep knee ext Left Dorsiflexion (L4) 5 Normal Plantarflexion (S1) 5 Normal PT-OP-Q Treatments Start: 09/08/21 17:49 Freq: Status: Active Protocol: Document 09/15/21 07:31 [facility] (Rec: 09/15/21 12:16 [facility] [id number]) Manual Therapy Treatment Soft Tissue Mobilization ant Body Location R diaphram & obliques Mobilization Type Rolling,Strumming,Sustained Pressure Intensity/Depth Moderate Body Position Supine Comments w/LTR post Body Location R lat w/shoulder flex Mobilization Type Rolling,Strumming,Sustained Pressure Intensity/Depth Moderate Body Position Sidelying Joint Mobilizations thoracic spine Comments Transverse glide L T5-8 FM seated and s/l UPA R FM R T5-7 FM s/l ribs Joint FM Comments distractive glide ant aspect 3 -7 R UPA R sternum mid and lower UPA R rib 4-6 Self-Care/Home Management Treatment Education Other Education review of exercises pt has cont from last PT bout verbally. Discussed w/pt anatomy of ribs and how taht is likely affecting both LB and R shoulder pain. PT-OP-T Assessment and Plan Start: 09/08/21 17:49 Freq: Status: Active Protocol: Document 09/15/21 07:31 [facility] (Rec: 09/15/21 12:16 [facility] [id number]) Physical Therapy Assessment Goals activities Short Term Goal (STG) Pt will have imrpoved ROM in B shoulders to allow no pain during ADLs STG Duration 10/09/21 Industrial Painter Goal (LTG) Pt will be able to stand as needed and back pack and lift w/o inc back pain or shoulder pain. LTG Duration 11/09/21 posture Senior Living Goal (LTG) Pt will show improved postural alignment by scoring at least 4/5 on VCT. LTG Duration 11/09/21 strength Short Term Goal (STG) Pt will be indep w/HEP STG Duration 10/23/21 Industrial Painter Goal (LTG) pt will show improved stability as noted by 5/5 UE and LE MMT and at least 4/5 on LPM and EFT in order to allow him to do typical active lifestyle w/o inc pain. LTG Duration 11/09/21 Assessment Summary Assessment Pt had improved rotation B after manual treatment but did still have some stiffness w/R rotation at end range. He was sore from areas worked after and was encouraged to ice and drink fluids and needed. Physical Therapy Plan Frequency and Duration Frequency of Treatment 1-2x/week Duration of Treatment 2 months Plan of Care Start Date 09/09/21 Plan of Care End Date 11/09/21 Next Visit Focus/Plan Next Note Type Treatment Note Next Visit Plan start supien and quadruped core progrssion, treat prone pelvis mobility
--- NOTE | 2021-09-21 18:16 | PT.OTN ---
Current Diagnoses Primary osteoarthritis, unspecified shoulder (09/21/21) Spondylosis, unspecified (09/21/21) Muscle weakness (generalized) (09/21/21) Difficulty in walking, not elsewhere classified (09/21/21) Abnormal posture (09/21/21) Physical Therapy Treatment Note PT-OP-A Visit Information Start: 09/08/21 17:49 Freq: Status: Active Protocol: Document 09/21/21 15:20 [facility] (Rec: 09/21/21 18:16 [facility] [id number]) Out-Patient Physical Therapy Visit Information Visit Information Visit Type Treatment Note Visit Start Time 15:20 Visit Stop Time 16:00 Total Visit Minutes 40 Visit Number 3 Number of TAG METER OPERATOR Visits 0 PT-OP-B Current Condition Start: 09/08/21 17:49 Freq: Status: Active Protocol: Document 09/09/21 08:18 [facility] (Rec: 09/09/21 09:06 [facility] [id number]) Current Condition History of Current Condition Onset Date chronic Current Complaints B shoulders and back History of Current Condition Pt reports he hurt L shoulder swimming on vacation and a wave pulled on it and after a couple days when back to its normal aching. Pt reports Pt had sacroiliatis and did PT for that and that helped. His back started bothering him a couple years ago after getting a new wallet and sitting on it hurt R LB but back pain stayed. He had weakness in R leg initially and numbness but that has gotten better w/use of inversion table and doing his exercises. Pt partially R shoulder a long time ago playing football and trying to hit a travon in his thigh and a doctor popped it back in place. He works out with dumbells every week but causes mild discomfort that lingers for short time. Occ sleep on it wrong, will wake w /it hurting. Occ hip pain when sleeps on soft mattress R mostly. Treatment Goals Patient/Caregiver Goals Improve ROM, make pain go away , prevent further degeneration PT-OP-C Subjective Start: 09/08/21 17:49 Freq: Status: Active Protocol: Document 09/21/21 15:20 [facility] (Rec: 09/21/21 18:16 [facility] [id number]) OP-PT Subjective Patient Comments Patient Comments tp reports he was sore for a day after PT session but shaver snote he got a head cold so was coughing and sneezing a lot. Notes ribs are better nwo . PT-OP-D Balance Start: 09/08/21 17:49 Freq: Status: Active Protocol: Document 09/09/21 08:18 [facility] (Rec: 09/09/21 09:06 [facility] [id number]) Balance Tests Single Limb Standing Single Limb- Right 30 sec Single Limb- Left slight shear L and trunk lean L 30 sec PT-OP-F Manual Assessment Start: 09/08/21 17:49 Freq: Status: Active Protocol: Document 09/09/21 08:18 [facility] (Rec: 09/09/21 09:06 [facility] [id number]) Manual Assessments Soft Tissue Assessment Soft Tissue Mobility Assessment QL R tight, pec tight B, UT, scalenes, LS R tight Joint Mobility Assessment Joint Mobility Assessment 1st rib elevated R, equal greater trochanter, R iliac crest minor higher PT-OP-G Mobility & Gait Start: 09/08/21 17:49 Freq: Status: Active Protocol: Document 09/09/21 08:18 [facility] (Rec: 09/09/21 09:06 [facility] [id number]) OP Gait Assessment Comments Gait Comments dec pelvis motion overall, L lat lean L PT-OP-J Posture/Palpation/Skin Start: 09/08/21 17:49 Freq: Status: Active Protocol: Document 09/09/21 08:18 [facility] (Rec: 09/09/21 09:06 [facility] [id number]) Posture Evaluation [facility] Postural Classification System Kelly Postural Classifications Posterior/Anterior Vertebral Compression Test 2 Elbow Flexion Test 1 Lumbar Protective Mechanism Left AP 1 Lumbar Protective Mechanism Right AP 3 Lumbar Protective Mechanism Left PA 3 Lumbar Protective Mechanism Right PA 2 Comments Posture Comments R shoulder more ant, scap ant tipped and abducted >L, L>R ER LE, flattened lumbar spine, inc kyphosis & fwd head PT-OP-K Range of Motion Start: 09/08/21 17:49 Freq: Status: Active Protocol: Document 09/09/21 08:18 [facility] (Rec: 09/09/21 09:06 [facility] [id number]) Lumbar Spine Range of Motion Lumbar Spine Active Degrees Flexion 30 Extension 10 Rotation Left 45 Rotation Right 40 Lateral Flexion Left 20 Lateral Flexion Right 22 Shoulder Goniometric Range of Motion Shoulder Right Active Flexion 154 Extension 50 Abduction 160 External Rotation at 90 degrees 85 Abduction External Rotation at 0 degrees Abduction 73 Internal Rotation Behind Back (text) T10 Comments click w/abd Left Active Flexion 136 Extension 54 Abduction 150 External Rotation at 90 degrees 78 Abduction External Rotation at 0 degrees Abduction 66 Internal Rotation Behind Back (text) T10 Comments clikcing and pain w/abd PT-OP-L Special Tests Start: 09/08/21 17:49 Freq: Status: Active Protocol: Document 09/15/21 07:31 [facility] (Rec: 09/15/21 12:16 [facility] [id number]) Special Tests Shoulder Special Tests Lateral Crank Test Test Results pain w/IR L, neg R Slap Prehention test Test Results neg B PT-OP-M Strength Start: 09/08/21 17:49 Freq: Status: Active Protocol: Document 09/15/21 07:31 [facility] (Rec: 09/15/21 12:16 [facility] [id number]) Hip Strength Hip Manual Muscle Testing Right Flexion (L2) 4 Good Extension (S1) 3+ Fair+ Abduction 4- Good- External Rotation 4 Good Internal Rotation 5 Normal Left Flexion (L2) 4 Good Extension (S1) 3+ Fair+ Abduction 4+ Good+ External Rotation 5 Normal Internal Rotation 5 Normal Knee Strength Knee Manual Muscle Testing Right Flexion (S2) 5 Normal Extension (L3) 5 Normal Left Flexion (S2) 5 Normal Extension (L3) 5 Normal Ankle/Foot Strength Ankle and Foot Manual Muscle Testing Right Dorsiflexion (L4) 5 Normal Plantarflexion (S1) 5 Normal Comments more difficulty during heel raises to keep knee ext Left Dorsiflexion (L4) 5 Normal Plantarflexion (S1) 5 Normal PT-OP-Q Treatments Start: 09/08/21 17:49 Freq: Status: Active Protocol: Document 09/21/21 15:20 [facility] (Rec: 09/21/21 18:16 [facility] [id number]) Therapeutic Exercises Supine Exercises core Supine Exercise Name progression: Heel slide, heel slide above ground, alt march Side bilateral Reps/Minutes 8 min Comments cues for TA activation and head and shoulders relaxed Other Exercises quadruped Other Exercise Name alt hip ext Side bilateral Reps/Minutes 10 Manual Therapy Treatment Joint Mobilizations innominate Joint L caudal, B IR FM sacrum Joint L caudal FM & R UPA FM PT-OP-T Assessment and Plan Start: 09/08/21 17:49 Freq: Status: Active Protocol: Document 09/21/21 15:20 [facility] (Rec: 09/21/21 18:16 [facility] [id number]) Physical Therapy Assessment Goals activities Short Term Goal (STG) Pt will have imrpoved ROM in B shoulders to allow no pain during ADLs STG Duration 10/09/21 Senior Sales Engineer Goal (LTG) Pt will be able to stand as needed and back pack and lift w/o inc back pain or shoulder pain. LTG Duration 11/09/21 posture Prison Goal (LTG) Pt will show improved postural alignment by scoring at least 4/5 on VCT. LTG Duration 11/09/21 strength Short Term Goal (STG) Pt will be indep w/HEP STG Duration 10/23/21 Senior Sales Engineer Goal (LTG) pt will show improved stability as noted by 5/5 UE and LE MMT and at least 4/5 on LPM and EFT in order to allow him to do typical active lifestyle w/o inc pain. LTG Duration 11/09/21 Assessment Summary Assessment Pt did have better rib mobility today and had better B trunk rotationa nd imrpoved ability for pelvis on R and scap on R to move w/ribcage for PNF patterns. Imrpoves hip IR B and manual treatment. Pt has poor TA contraction w/ exercises and requries cueing re: movement Physical Therapy Plan Frequency and Duration Frequency of Treatment 1-2x/week Duration of Treatment 2 months Plan of Care Start Date 09/09/21 Plan of Care End Date 11/09/21 Next Visit Focus/Plan Next Note Type Treatment Note Next Visit Plan Review core exercises, check HISL, work on R scap mobility for PNF & work on B shoulder mobility
--- NOTE | 2021-10-06 18:51 | PT.OTN ---
Current Diagnoses Primary osteoarthritis, unspecified shoulder (10/06/21) Spondylosis, unspecified (10/06/21) Muscle weakness (generalized) (10/06/21) Difficulty in walking, not elsewhere classified (10/06/21) Abnormal posture (10/06/21) Physical Therapy Treatment Note PT-OP-A Visit Information Start: 09/08/21 17:49 Freq: Status: Active Protocol: Document 10/06/21 18:04 [facility] (Rec: 10/06/21 18:51 [facility] [id number]) Out-Patient Physical Therapy Visit Information Visit Information Visit Type Treatment Note Visit Start Time 16:47 Visit Stop Time 17:35 Total Visit Minutes 48 Visit Number 4 Number of SHIRT HEMMER Visits 0 PT-OP-B Current Condition Start: 09/08/21 17:49 Freq: Status: Active Protocol: Document 09/09/21 08:18 [facility] (Rec: 09/09/21 09:06 [facility] [id number]) Current Condition History of Current Condition Onset Date chronic Current Complaints B shoulders and back History of Current Condition Pt reports he hurt L shoulder swimming on vacation and a wave pulled on it and after a couple days when back to its normal aching. Pt reports Pt had sacroiliatis and did PT for that and that helped. His back started bothering him a couple years ago after getting a new wallet and sitting on it hurt R LB but back pain stayed. He had weakness in R leg initially and numbness but that has gotten better w/use of inversion table and doing his exercises. Pt partially R shoulder a long time ago playing football and trying to hit a travon in his thigh and a doctor popped it back in place. He works out with dumbells every week but causes mild discomfort that lingers for short time. Occ sleep on it wrong, will wake w /it hurting. Occ hip pain when sleeps on soft mattress R mostly. Treatment Goals Patient/Caregiver Goals Improve ROM, make pain go away , prevent further degeneration PT-OP-C Subjective Start: 09/08/21 17:49 Freq: Status: Active Protocol: Document 10/06/21 18:04 [facility] (Rec: 10/06/21 18:51 [facility] [id number]) OP-PT Subjective Patient Comments Patient Comments pt reprots he aspirated on a piece of breakfast the other day sending him into a coughing fit. This irridated his R scap region again by Melidaine. PT-OP-D Balance Start: 09/08/21 17:49 Freq: Status: Active Protocol: Document 09/09/21 08:18 [facility] (Rec: 09/09/21 09:06 [facility] [id number]) Balance Tests Single Limb Standing Single Limb- Right 30 sec Single Limb- Left slight shear L and trunk lean L 30 sec PT-OP-F Manual Assessment Start: 09/08/21 17:49 Freq: Status: Active Protocol: Document 09/09/21 08:18 [facility] (Rec: 09/09/21 09:06 [facility] [id number]) Manual Assessments Soft Tissue Assessment Soft Tissue Mobility Assessment QL R tight, pec tight B, UT, scalenes, LS R tight Joint Mobility Assessment Joint Mobility Assessment 1st rib elevated R, equal greater trochanter, R iliac crest minor higher PT-OP-G Mobility & Gait Start: 09/08/21 17:49 Freq: Status: Active Protocol: Document 09/09/21 08:18 [facility] (Rec: 09/09/21 09:06 [facility] [id number]) OP Gait Assessment Comments Gait Comments dec pelvis motion overall, L lat lean L PT-OP-J Posture/Palpation/Skin Start: 09/08/21 17:49 Freq: Status: Active Protocol: Document 09/09/21 08:18 [facility] (Rec: 09/09/21 09:06 [facility] [id number]) Posture Evaluation Kelly Postural Classification System Kelly Postural Classifications Posterior/Anterior Vertebral Compression Test 2 Elbow Flexion Test 1 Lumbar Protective Mechanism Left AP 1 Lumbar Protective Mechanism Right AP 3 Lumbar Protective Mechanism Left PA 3 Lumbar Protective Mechanism Right PA 2 Comments Posture Comments R shoulder more ant, scap ant tipped and abducted >L, L>R ER LE, flattened lumbar spine, inc kyphosis & fwd head PT-OP-K Range of Motion Start: 09/08/21 17:49 Freq: Status: Active Protocol: Document 09/09/21 08:18 [facility] (Rec: 09/09/21 09:06 [facility] [id number]) Lumbar Spine Range of Motion Lumbar Spine Active Degrees Flexion 30 Extension 10 Rotation Left 45 Rotation Right 40 Lateral Flexion Left 20 Lateral Flexion Right 22 Shoulder Goniometric Range of Motion Shoulder Right Active Flexion 154 Extension 50 Abduction 160 External Rotation at 90 degrees 85 Abduction External Rotation at 0 degrees Abduction 73 Internal Rotation Behind Back (text) T10 Comments click w/abd Left Active Flexion 136 Extension 54 Abduction 150 External Rotation at 90 degrees 78 Abduction External Rotation at 0 degrees Abduction 66 Internal Rotation Behind Back (text) T10 Comments clikcing and pain w/abd PT-OP-L Special Tests Start: 09/08/21 17:49 Freq: Status: Active Protocol: Document 09/15/21 07:31 [facility] (Rec: 09/15/21 12:16 [facility] [id number]) Special Tests Shoulder Special Tests Lateral Crank Test Test Results pain w/IR L, neg R Slap Prehention test Test Results neg B PT-OP-M Strength Start: 09/08/21 17:49 Freq: Status: Active Protocol: Document 09/15/21 07:31 [facility] (Rec: 09/15/21 12:16 [facility] [id number]) Hip Strength Hip Manual Muscle Testing Right Flexion (L2) 4 Good Extension (S1) 3+ Fair+ Abduction 4- Good- External Rotation 4 Good Internal Rotation 5 Normal Left Flexion (L2) 4 Good Extension (S1) 3+ Fair+ Abduction 4+ Good+ External Rotation 5 Normal Internal Rotation 5 Normal Knee Strength Knee Manual Muscle Testing Right Flexion (S2) 5 Normal Extension (L3) 5 Normal Left Flexion (S2) 5 Normal Extension (L3) 5 Normal Ankle/Foot Strength Ankle and Foot Manual Muscle Testing Right Dorsiflexion (L4) 5 Normal Plantarflexion (S1) 5 Normal Comments more difficulty during heel raises to keep knee ext Left Dorsiflexion (L4) 5 Normal Plantarflexion (S1) 5 Normal PT-OP-Q Treatments Start: 09/08/21 17:49 Freq: Status: Active Protocol: Document 10/06/21 18:04 [facility] (Rec: 10/06/21 18:51 [facility] [id number]) Manual Therapy Treatment Soft Tissue Mobilization post Body Location R ES Mobilization Type Rolling,Strumming,Sustained Pressure Intensity/Depth Moderate Body Position Prone Joint Mobilizations thoracic spine Comments Transverse glide L T1-11 FM seated UPA R FM R T5-7 FM s/l ribs Comments distractive glide ant aspect 4 -7 R UPA R sternum mid and lower UPA R rib 4-6, 1-2 caudal rib 2 SL & rib 1 supine & S/L FM UPA T5-8 percussion PT-OP-T Assessment and Plan Start: 09/08/21 17:49 Freq: Status: Active Protocol: Document 10/06/21 18:04 [facility] (Rec: 10/06/21 18:51 [facility] [id number]) Physical Therapy Assessment Goals activities Short Term Goal (STG) Pt will have imrpoved ROM in B shoulders to allow no pain during ADLs STG Duration 10/09/21 Half-Way Goal (LTG) Pt will be able to stand as needed and back pack and lift w/o inc back pain or shoulder pain. LTG Duration 11/09/21 posture Winch Truck Operator Goal (LTG) Pt will show improved postural alignment by scoring at least 4/5 on VCT. LTG Duration 11/09/21 strength Short Term Goal (STG) Pt will be indep w/HEP STG Duration 10/23/21 Half-Way Goal (LTG) pt will show improved stability as noted by 5/5 UE and LE MMT and at least 4/5 on LPM and EFT in order to allow him to do typical active lifestyle w/o inc pain. LTG Duration 11/09/21 Assessment Summary Assessment Pt was limited to about 20 deg R TL rotation and had limited B SB w/pain at start of session. He improved toa bout 50 deg rotation and painfree SB w/good ROM w/manual treatment. His ribcage dysfunction is affecting his breathing causing elevation of R scap which likely will inc his impingment of R shoulder and dec diaphram use will dec core stabiltiy. Physical Therapy Plan Frequency and Duration Frequency of Treatment 1-2x/week Duration of Treatment 2 months Plan of Care Start Date 09/09/21 Plan of Care End Date 11/09/21 Next Visit Focus/Plan Next Note Type Treatment Note Next Visit Plan Review core exercises, check HISL, ribcage work, work on R scap mobility for PNF & work on B shoulder mobility
--- NOTE | 2021-10-27 11:15 | PT-OP ANOTE ---
Pt called re: no show and message left on phone re: no show. Pt informed he is on waitlist at this time for future appointments.
--- NOTE | 2021-10-28 11:54 | PT.OTN ---
Current Diagnoses Primary osteoarthritis, unspecified shoulder (10/28/21) Spondylosis, unspecified (10/28/21) Muscle weakness (generalized) (10/28/21) Difficulty in walking, not elsewhere classified (10/28/21) Abnormal posture (10/28/21) Physical Therapy Treatment Note PT-OP-A Visit Information Start: 09/08/21 17:49 Freq: Status: Active Protocol: Document 10/28/21 10:36 [facility] (Rec: 10/28/21 11:54 [facility] [id number]) Out-Patient Physical Therapy Visit Information Visit Information Visit Type Treatment Note Visit Start Time 10:35 Visit Stop Time 11:15 Total Visit Minutes 40 Visit Number 5 Number of GENETIC COUNSELLOR Visits 0 PT-OP-B Current Condition Start: 09/08/21 17:49 Freq: Status: Active Protocol: Document 09/09/21 08:18 [facility] (Rec: 09/09/21 09:06 [facility] [id number]) Current Condition History of Current Condition Onset Date chronic Current Complaints B shoulders and back History of Current Condition Pt reports he hurt L shoulder swimming on vacation and a wave pulled on it and after a couple days when back to its normal aching. Pt reports Pt had sacroiliatis and did PT for that and that helped. His back started bothering him a couple years ago after getting a new wallet and sitting on it hurt R LB but back pain stayed. He had weakness in R leg initially and numbness but that has gotten better w/use of inversion table and doing his exercises. Pt partially R shoulder a long time ago playing football and trying to hit a travon in his thigh and a doctor popped it back in place. He works out with dumbells every week but causes mild discomfort that lingers for short time. Occ sleep on it wrong, will wake w /it hurting. Occ hip pain when sleeps on soft mattress R mostly. Treatment Goals Patient/Caregiver Goals Improve ROM, make pain go away , prevent further degeneration PT-OP-C Subjective Start: 09/08/21 17:49 Freq: Status: Active Protocol: Document 10/28/21 10:36 [facility] (Rec: 10/28/21 11:54 [facility] [id number]) OP-PT Subjective Patient Comments Patient Comments Pt reports compliance w/ exercises and working on focus on back position for core. Pt reports w/long bike ride, he had to hold breaks for about 2 hours and L hand had some resulting weakness. He feels like it comes from his L hsoulder. Notes ribs still bothering him on R a lot. TOday is better but hasn't had to cough or sneeze. PT-OP-D Balance Start: 09/08/21 17:49 Freq: Status: Active Protocol: Document 09/09/21 08:18 [facility] (Rec: 09/09/21 09:06 [facility] [id number]) Balance Tests Single Limb Standing Single Limb- Right 30 sec Single Limb- Left slight shear L and trunk lean L 30 sec PT-OP-F Manual Assessment Start: 09/08/21 17:49 Freq: Status: Active Protocol: Document 09/09/21 08:18 [facility] (Rec: 09/09/21 09:06 [facility] [id number]) Manual Assessments Soft Tissue Assessment Soft Tissue Mobility Assessment QL R tight, pec tight B, UT, scalenes, LS R tight Joint Mobility Assessment Joint Mobility Assessment 1st rib elevated R, equal greater trochanter, R iliac crest minor higher PT-OP-G Mobility & Gait Start: 09/08/21 17:49 Freq: Status: Active Protocol: Document 09/09/21 08:18 [facility] (Rec: 09/09/21 09:06 [facility] [id number]) OP Gait Assessment Comments Gait Comments dec pelvis motion overall, L lat lean L PT-OP-J Posture/Palpation/Skin Start: 09/08/21 17:49 Freq: Status: Active Protocol: Document 09/09/21 08:18 [facility] (Rec: 09/09/21 09:06 [facility] [id number]) Posture Evaluation Kelly Postural Classification System Kelly Postural Classifications Posterior/Anterior Vertebral Compression Test 2 Elbow Flexion Test 1 Lumbar Protective Mechanism Left AP 1 Lumbar Protective Mechanism Right AP 3 Lumbar Protective Mechanism Left PA 3 Lumbar Protective Mechanism Right PA 2 Comments Posture Comments R shoulder more ant, scap ant tipped and abducted >L, L>R ER LE, flattened lumbar spine, inc kyphosis & fwd head PT-OP-K Range of Motion Start: 09/08/21 17:49 Freq: Status: Active Protocol: Document 09/09/21 08:18 [facility] (Rec: 09/09/21 09:06 [facility] [id number]) Lumbar Spine Range of Motion Lumbar Spine Active Degrees Flexion 30 Extension 10 Rotation Left 45 Rotation Right 40 Lateral Flexion Left 20 Lateral Flexion Right 22 Shoulder Goniometric Range of Motion Shoulder Right Active Flexion 154 Extension 50 Abduction 160 External Rotation at 90 degrees 85 Abduction External Rotation at 0 degrees Abduction 73 Internal Rotation Behind Back (text) T10 Comments click w/abd Left Active Flexion 136 Extension 54 Abduction 150 External Rotation at 90 degrees 78 Abduction External Rotation at 0 degrees Abduction 66 Internal Rotation Behind Back (text) T10 Comments clikcing and pain w/abd PT-OP-L Special Tests Start: 09/08/21 17:49 Freq: Status: Active Protocol: Document 09/15/21 07:31 [facility] (Rec: 09/15/21 12:16 [facility] [id number]) Special Tests Shoulder Special Tests Lateral Crank Test Test Results pain w/IR L, neg R Slap Prehention test Test Results neg B PT-OP-M Strength Start: 09/08/21 17:49 Freq: Status: Active Protocol: Document 09/15/21 07:31 [facility] (Rec: 09/15/21 12:16 [facility] [id number]) Hip Strength Hip Manual Muscle Testing Right Flexion (L2) 4 Good Extension (S1) 3+ Fair+ Abduction 4- Good- External Rotation 4 Good Internal Rotation 5 Normal Left Flexion (L2) 4 Good Extension (S1) 3+ Fair+ Abduction 4+ Good+ External Rotation 5 Normal Internal Rotation 5 Normal Knee Strength Knee Manual Muscle Testing Right Flexion (S2) 5 Normal Extension (L3) 5 Normal Left Flexion (S2) 5 Normal Extension (L3) 5 Normal Ankle/Foot Strength Ankle and Foot Manual Muscle Testing Right Dorsiflexion (L4) 5 Normal Plantarflexion (S1) 5 Normal Comments more difficulty during heel raises to keep knee ext Left Dorsiflexion (L4) 5 Normal Plantarflexion (S1) 5 Normal PT-OP-Q Treatments Start: 09/08/21 17:49 Freq: Status: Active Protocol: Document 10/28/21 10:36 [facility] (Rec: 10/28/21 11:54 [facility] [id number]) Therapeutic Exercises Sitting Exercises scalene stretch Side left Reps/Minutes 20 sec Manual Therapy Treatment Soft Tissue Mobilization shoulder Body Location L scalenes Mobilization Type Rolling Intensity/Depth Moderate Body Position Sidelying post Body Location R ES lower thoracic/lumbar Mobilization Type Rolling,Strumming,Sustained Pressure Intensity/Depth Moderate Body Position Prone Joint Mobilizations thoracic spine Comments UPA R T8-12 ribs Comments distractive glide post aspect ribs 8-11 R UPA R ribs 7-12 FM med glide rib 8 sup glide rib 8 inf glide rib 7 FM PT-OP-T Assessment and Plan Start: 09/08/21 17:49 Freq: Status: Active Protocol: Document 10/28/21 10:36 [facility] (Rec: 10/28/21 11:54 [facility] [id number]) Physical Therapy Assessment Goals activities Short Term Goal (STG) Pt will have imrpoved ROM in B shoulders to allow no pain during ADLs STG Duration 10/09/21 Shelter Goal (LTG) Pt will be able to stand as needed and back pack and lift w/o inc back pain or shoulder pain. LTG Duration 11/09/21 posture Shelter Goal (LTG) Pt will show improved postural alignment by scoring at least 4/5 on VCT. LTG Duration 11/09/21 strength Short Term Goal (STG) Pt will be indep w/HEP STG Duration 10/23/21 Associate Professor Of Archaeology Goal (LTG) pt will show improved stability as noted by 5/5 UE and LE MMT and at least 4/5 on LPM and EFT in order to allow him to do typical active lifestyle w/o inc pain. LTG Duration 11/09/21 Assessment Summary Assessment Improved R SB after manual of trunk and improved L scap depression w/pt noting feeling some inc in strength in L pinky. He still has a lot of tightness in R lower ribcage which is likely contributing to back pain. Physical Therapy Plan Frequency and Duration Frequency of Treatment 1-2x/week Duration of Treatment 2 months Plan of Care Start Date 09/09/21 Plan of Care End Date 11/09/21 Next Visit Focus/Plan Next Note Type Treatment Note Next Visit Plan check HISL, ribcage work, work on R scap mobility for PNF & work on B shoulder mobility
--- NOTE | 2021-11-04 14:37 | PT.OTN ---
Current Diagnoses Primary osteoarthritis, unspecified shoulder (11/04/21) Spondylosis, unspecified (11/04/21) Muscle weakness (generalized) (11/04/21) Difficulty in walking, not elsewhere classified (11/04/21) Abnormal posture (11/04/21) Physical Therapy Treatment Note PT-OP-A Visit Information Start: 09/08/21 17:49 Freq: Status: Active Protocol: Document 11/04/21 13:48 [facility] (Rec: 11/04/21 14:37 [facility] [id number]) Out-Patient Physical Therapy Visit Information Visit Information Visit Type Treatment Note Visit Start Time 13:48 Visit Stop Time 14:30 Total Visit Minutes 42 Visit Number 6 Number of SENIOR EDITOR Visits 0 PT-OP-B Current Condition Start: 09/08/21 17:49 Freq: Status: Active Protocol: Document 09/09/21 08:18 [facility] (Rec: 09/09/21 09:06 [facility] [id number]) Current Condition History of Current Condition Onset Date chronic Current Complaints B shoulders and back History of Current Condition Pt reports he hurt L shoulder swimming on vacation and a wave pulled on it and after a couple days when back to its normal aching. Pt reports Pt had sacroiliatis and did PT for that and that helped. His back started bothering him a couple years ago after getting a new wallet and sitting on it hurt R LB but back pain stayed. He had weakness in R leg initially and numbness but that has gotten better w/use of inversion table and doing his exercises. Pt partially R shoulder a long time ago playing football and trying to hit a travon in his thigh and a doctor popped it back in place. He works out with dumbells every week but causes mild discomfort that lingers for short time. Occ sleep on it wrong, will wake w /it hurting. Occ hip pain when sleeps on soft mattress R mostly. Treatment Goals Patient/Caregiver Goals Improve ROM, make pain go away , prevent further degeneration PT-OP-C Subjective Start: 09/08/21 17:49 Freq: Status: Active Protocol: Document 11/04/21 13:48 [facility] (Rec: 11/04/21 14:37 [facility] [id number]) OP-PT Subjective Patient Comments Patient Comments Pt reports pain still present but dull PT-OP-D Balance Start: 09/08/21 17:49 Freq: Status: Active Protocol: Document 09/09/21 08:18 [facility] (Rec: 09/09/21 09:06 [facility] [id number]) Balance Tests Single Limb Standing Single Limb- Right 30 sec Single Limb- Left slight shear L and trunk lean L 30 sec PT-OP-F Manual Assessment Start: 09/08/21 17:49 Freq: Status: Active Protocol: Document 09/09/21 08:18 [facility] (Rec: 09/09/21 09:06 [facility] [id number]) Manual Assessments Soft Tissue Assessment Soft Tissue Mobility Assessment QL R tight, pec tight B, UT, scalenes, LS R tight Joint Mobility Assessment Joint Mobility Assessment 1st rib elevated R, equal greater trochanter, R iliac crest minor higher PT-OP-G Mobility & Gait Start: 09/08/21 17:49 Freq: Status: Active Protocol: Document 09/09/21 08:18 [facility] (Rec: 09/09/21 09:06 [facility] [id number]) OP Gait Assessment Comments Gait Comments dec pelvis motion overall, L lat lean L PT-OP-J Posture/Palpation/Skin Start: 09/08/21 17:49 Freq: Status: Active Protocol: Document 09/09/21 08:18 [facility] (Rec: 09/09/21 09:06 [facility] [id number]) Posture Evaluation Kelly Postural Classification System Kelly Postural Classifications Posterior/Anterior Vertebral Compression Test 2 Elbow Flexion Test 1 Lumbar Protective Mechanism Left AP 1 Lumbar Protective Mechanism Right AP 3 Lumbar Protective Mechanism Left PA 3 Lumbar Protective Mechanism Right PA 2 Comments Posture Comments R shoulder more ant, scap ant tipped and abducted >L, L>R ER LE, flattened lumbar spine, inc kyphosis & fwd head PT-OP-K Range of Motion Start: 09/08/21 17:49 Freq: Status: Active Protocol: Document 09/09/21 08:18 [facility] (Rec: 09/09/21 09:06 [facility] [id number]) Lumbar Spine Range of Motion Lumbar Spine Active Degrees Flexion 30 Extension 10 Rotation Left 45 Rotation Right 40 Lateral Flexion Left 20 Lateral Flexion Right 22 Shoulder Goniometric Range of Motion Shoulder Right Active Flexion 154 Extension 50 Abduction 160 External Rotation at 90 degrees 85 Abduction External Rotation at 0 degrees Abduction 73 Internal Rotation Behind Back (text) T10 Comments click w/abd Left Active Flexion 136 Extension 54 Abduction 150 External Rotation at 90 degrees 78 Abduction External Rotation at 0 degrees Abduction 66 Internal Rotation Behind Back (text) T10 Comments clikcing and pain w/abd PT-OP-L Special Tests Start: 09/08/21 17:49 Freq: Status: Active Protocol: Document 09/15/21 07:31 [facility] (Rec: 09/15/21 12:16 [facility] [id number]) Special Tests Shoulder Special Tests Lateral Crank Test Test Results pain w/IR L, neg R Slap Prehention test Test Results neg B PT-OP-M Strength Start: 09/08/21 17:49 Freq: Status: Active Protocol: Document 09/15/21 07:31 [facility] (Rec: 09/15/21 12:16 [facility] [id number]) Hip Strength Hip Manual Muscle Testing Right Flexion (L2) 4 Good Extension (S1) 3+ Fair+ Abduction 4- Good- External Rotation 4 Good Internal Rotation 5 Normal Left Flexion (L2) 4 Good Extension (S1) 3+ Fair+ Abduction 4+ Good+ External Rotation 5 Normal Internal Rotation 5 Normal Knee Strength Knee Manual Muscle Testing Right Flexion (S2) 5 Normal Extension (L3) 5 Normal Left Flexion (S2) 5 Normal Extension (L3) 5 Normal Ankle/Foot Strength Ankle and Foot Manual Muscle Testing Right Dorsiflexion (L4) 5 Normal Plantarflexion (S1) 5 Normal Comments more difficulty during heel raises to keep knee ext Left Dorsiflexion (L4) 5 Normal Plantarflexion (S1) 5 Normal PT-OP-Q Treatments Start: 09/08/21 17:49 Freq: Status: Active Protocol: Document 11/04/21 13:48 [facility] (Rec: 11/04/21 14:37 [facility] [id number]) Manual Therapy Treatment Soft Tissue Mobilization post Body Location R ES lower thoracic/lumbar QL Mobilization Type Rolling,Strumming,Sustained Pressure Intensity/Depth Moderate Body Position Sidelying Joint Mobilizations lumbar Comments gapping L1-4 FM in R s/l hip Joint B inf FM innominate Joint B flex FM thoracic spine Comments T9-L3 transverse L FM seated ribs Comments distractive glide post aspect ribs 6-9 FM med glide rib 7 R sup glide rib 8 FM Self-Care/Home Management Treatment Education Other Education do pigeon and/or hip flexor stretch PT-OP-T Assessment and Plan Start: 09/08/21 17:49 Freq: Status: Active Protocol: Document 11/04/21 13:48 [facility] (Rec: 11/04/21 14:37 [facility] [id number]) Physical Therapy Assessment Goals activities Short Term Goal (STG) Pt will have imrpoved ROM in B shoulders to allow no pain during ADLs STG Duration 10/09/21 Collar Folder Operator Goal (LTG) Pt will be able to stand as needed and back pack and lift w/o inc back pain or shoulder pain. LTG Duration 11/09/21 posture Collar Folder Operator Goal (LTG) Pt will show improved postural alignment by scoring at least 4/5 on VCT. LTG Duration 11/09/21 strength Short Term Goal (STG) Pt will be indep w/HEP STG Duration 10/23/21 Collar Folder Operator Goal (LTG) pt will show improved stability as noted by 5/5 UE and LE MMT and at least 4/5 on LPM and EFT in order to allow him to do typical active lifestyle w/o inc pain. LTG Duration 11/09/21 Assessment Summary Assessment Pt had improved R rot today w/ less pain and was able to imrpove further w/manual. Also notable hip flex improvement in ROM w/manual B. Pt did have significant tighntess in B HS that may be limiting Lumbar flex along w/hip flex. Physical Therapy Plan Frequency and Duration Frequency of Treatment 1-2x/week Duration of Treatment 2 months Plan of Care Start Date 09/09/21 Plan of Care End Date 11/09/21 Next Visit Focus/Plan Next Note Type Progress Note Next Visit Plan cont to work on ability to get flex, based on progress make plan
--- NOTE | 2021-11-23 18:37 | PT.OTN ---
Current Diagnoses Primary osteoarthritis, unspecified shoulder (11/23/21) Spondylosis, unspecified (11/23/21) Muscle weakness (generalized) (11/23/21) Difficulty in walking, not elsewhere classified (11/23/21) Abnormal posture (11/23/21) Physical Therapy Treatment Note PT-OP-A Visit Information Start: 09/08/21 17:49 Freq: Status: Active Protocol: Document 11/23/21 16:51 [facility] (Rec: 11/23/21 18:37 [facility] [id number]) Out-Patient Physical Therapy Visit Information Visit Information Visit Type Progress Note Visit Start Time 16:51 Visit Stop Time 17:40 Total Visit Minutes 49 Visit Number 7 Number of DENTAL PROFESSIONAL Visits 0 PT-OP-B Current Condition Start: 09/08/21 17:49 Freq: Status: Active Protocol: Document 09/09/21 08:18 [facility] (Rec: 09/09/21 09:06 [facility] [id number]) Current Condition History of Current Condition Onset Date chronic Current Complaints B shoulders and back History of Current Condition Pt reports he hurt L shoulder swimming on vacation and a wave pulled on it and after a couple days when back to its normal aching. Pt reports Pt had sacroiliatis and did PT for that and that helped. His back started bothering him a couple years ago after getting a new wallet and sitting on it hurt R LB but back pain stayed. He had weakness in R leg initially and numbness but that has gotten better w/use of inversion table and doing his exercises. Pt partially R shoulder a long time ago playing football and trying to hit a travon in his thigh and a doctor popped it back in place. He works out with dumbells every week but causes mild discomfort that lingers for short time. Occ sleep on it wrong, will wake w /it hurting. Occ hip pain when sleeps on soft mattress R mostly. Treatment Goals Patient/Caregiver Goals Improve ROM, make pain go away , prevent further degeneration PT-OP-C Subjective Start: 09/08/21 17:49 Freq: Status: Active Protocol: Document 11/23/21 16:51 [facility] (Rec: 11/23/21 18:37 [facility] [id number]) OP-PT Subjective Patient Comments Patient Comments Pt reports not much issue w/ shoulders and back occ twinges in AM. ribcage in L back better w/less discomfrot PT-OP-D Balance Start: 09/08/21 17:49 Freq: Status: Active Protocol: Document 09/09/21 08:18 [facility] (Rec: 09/09/21 09:06 [facility] [id number]) Balance Tests Single Limb Standing Single Limb- Right 30 sec Single Limb- Left slight shear L and trunk lean L 30 sec PT-OP-F Manual Assessment Start: 09/08/21 17:49 Freq: Status: Active Protocol: Document 09/09/21 08:18 [facility] (Rec: 09/09/21 09:06 [facility] [id number]) Manual Assessments Soft Tissue Assessment Soft Tissue Mobility Assessment QL R tight, pec tight B, UT, scalenes, LS R tight Joint Mobility Assessment Joint Mobility Assessment 1st rib elevated R, equal greater trochanter, R iliac crest minor higher PT-OP-G Mobility & Gait Start: 09/08/21 17:49 Freq: Status: Active Protocol: Document 09/09/21 08:18 [facility] (Rec: 09/09/21 09:06 [facility] [id number]) OP Gait Assessment Comments Gait Comments dec pelvis motion overall, L lat lean L PT-OP-J Posture/Palpation/Skin Start: 09/08/21 17:49 Freq: Status: Active Protocol: Document 11/23/21 16:51 [facility] (Rec: 11/23/21 18:37 [facility] [id number]) Posture Evaluation Kelly Postural Classification System Vertebral Compression Test 4 Elbow Flexion Test 3 Lumbar Protective Mechanism Right AP 5 Lumbar Protective Mechanism Left PA 4 Lumbar Protective Mechanism Right PA 5 PT-OP-K Range of Motion Start: 09/08/21 17:49 Freq: Status: Active Protocol: Document 11/23/21 16:51 [facility] (Rec: 11/23/21 18:37 [facility] [id number]) Shoulder Goniometric Range of Motion Shoulder Right Active Flexion 155 Extension 62 Abduction 174 External Rotation at 90 degrees 95 Abduction Internal Rotation Behind Back (text) T9 Left Active Flexion 147 Extension 53 Abduction 178 External Rotation at 90 degrees 100 Abduction External Rotation at 0 degrees Abduction 66 Internal Rotation Behind Back (text) T9 PT-OP-L Special Tests Start: 09/08/21 17:49 Freq: Status: Active Protocol: Document 09/15/21 07:31 [facility] (Rec: 09/15/21 12:16 [facility] [id number]) Special Tests Shoulder Special Tests Lateral Crank Test Test Results pain w/IR L, neg R Slap Prehention test Test Results neg B PT-OP-M Strength Start: 09/08/21 17:49 Freq: Status: Active Protocol: Document 11/23/21 16:51 [facility] (Rec: 11/23/21 18:37 [facility] [id number]) Shoulder Strength Shoulder Manual Muscle Testing Right Flexion 5 Normal Extension 5 Normal Abduction (C5) 5 Normal External Rotation 5 Normal Internal Rotation 5 Normal Horizontal Abduction 5 Normal Horizontal Adduction 5 Normal Left Flexion 5 Normal Extension 5 Normal Abduction (C5) 5 Normal External Rotation 5 Normal Internal Rotation 5 Normal Horizontal Abduction 5 Normal Horizontal Adduction 5 Normal Comments minor pain abd & flex, Habd Hip Strength Hip Manual Muscle Testing Right Flexion (L2) 4+ Good+ Extension (S1) 4 Good Abduction 4 Good Adduction 5 Normal External Rotation 4+ Good+ Internal Rotation 5 Normal Left Flexion (L2) 4+ Good+ Extension (S1) 4 Good Abduction 4+ Good+ Adduction 5 Normal External Rotation 5 Normal Internal Rotation 5 Normal PT-OP-Q Treatments Start: 09/08/21 17:49 Freq: Status: Active Protocol: Document 11/23/21 16:51 [facility] (Rec: 11/23/21 18:37 [id number] Therapeutic Exercises Supine Exercises bridge Supine Exercise Name attempted alt july but pt gets HS cramp Side bilateral Reps/Minutes 5 Comments attemped traction at LE Prone Exercises hip ext Side bilateral Reps/Minutes 10 Standing Exercises RDL Standing Exercise Name 1. DL 2. SL Side bilateral Equipment Used yard stick at back Reps/Minutes 1.15 2. 8 Comments max cues Manual Therapy Treatment Soft Tissue Mobilization ant Body Location L quad Mobilization Type Rolling,Strumming,Sustained Pressure Intensity/Depth Moderate Comments nevaeh test position post Body Location L HS Mobilization Type Rolling,Strumming,Sustained Pressure Intensity/Depth Moderate Joint Mobilizations innominate Joint L ext FM Comments w/ Manual facilitation into ext sacrum Joint L UPA Manual Techniques stretch Type L HS stretch C/r into 3 planes PT-OP-T Assessment and Plan Start: 09/08/21 17:49 Freq: Status: Active Protocol: Document 11/23/21 16:51 [facility] (Rec: 11/23/21 18:37 [id number] Physical Therapy Assessment Goals activities Short Term Goal (STG) Pt will have imrpoved ROM in B shoulders to allow no pain during ADLs STG Duration achieved Skilled Nursing Goal (LTG) Pt will be able to stand as needed and back pack and lift w/o inc back pain or shoulder pain. 11/23-lifting and standing ok but notes he has to move around when standing. Has not done any lengthy backpack trips LTG Duration 11/09/21 posture Receiving Manager Goal (LTG) Pt will show improved postural alignment by scoring at least 4/5 on VCT. LTG Duration achieved strength Short Term Goal (STG) Pt will be indep w/HEP STG Duration achieved advancing as needed Skilled Nursing Goal (LTG) pt will show improved stability as noted by 5/5 UE and LE MMT and at least 4/5 on LPM and EFT in order to allow him to do typical active lifestyle w/o inc pain. 11/23-much improved LTG Duration 01/24/22 Assessment Summary Assessment Pt shows imrpoved PHAN, posture and overall LE and UE stability ,but is still very limited. He is still having some back pain in AMs and in L lwoer ribcage. He has dec glute activation overall and this may contribute to pt's HS issue. Physical Therapy Plan Frequency and Duration Frequency of Treatment 1-2x/week Duration of Treatment 2 months Plan of Care Start Date 11/23/21 Plan of Care End Date 01/24/22 Therapeutic Interventions Therapeutic Interventions Aquatic Therapy,Balance Training,Gait Training,Home Exercise Program,Joint Mobilizations,Manual Therapy, Neuromuscular Re-education, Patient/Caregiver Education, Self-Care/Home Management,Soft Tissue Mobilization,Taping, Therapeutic Activities, Therapeutic Exercises Modalities Cold Pack/Ice Massage,Electric Stimulation,Hot Packs, Infrared Therapy,Traction- Mechanical,Ultrasound Next Visit Focus/Plan Next Note Type Treatment Note Next Visit Plan work on glute facilitation
--- NOTE | 2021-12-21 09:52 | PT.OTN ---
Current Diagnoses Primary osteoarthritis, unspecified shoulder (12/21/21) Spondylosis, unspecified (12/21/21) Muscle weakness (generalized) (12/21/21) Difficulty in walking, not elsewhere classified (12/21/21) Abnormal posture (12/21/21) Physical Therapy Treatment Note PT-OP-A Visit Information Start: 09/08/21 17:49 Freq: Status: Active Protocol: Document 12/21/21 09:06 [facility] (Rec: 12/21/21 09:51 [facility] [id number]) Out-Patient Physical Therapy Visit Information Visit Information Visit Type Treatment Note Visit Start Time 09:15 Visit Stop Time 09:45 Total Visit Minutes 30 Visit Number 8 Number of FUR STRETCHER Visits 0 PT-OP-B Current Condition Start: 09/08/21 17:49 Freq: Status: Active Protocol: Document 09/09/21 08:18 [facility] (Rec: 09/09/21 09:06 [facility] [id number]) Current Condition History of Current Condition Onset Date chronic Current Complaints B shoulders and back History of Current Condition Pt reports he hurt L shoulder swimming on vacation and a wave pulled on it and after a couple days when back to its normal aching. Pt reports Pt had sacroiliatis and did PT for that and that helped. His back started bothering him a couple years ago after getting a new wallet and sitting on it hurt R LB but back pain stayed. He had weakness in R leg initially and numbness but that has gotten better w/use of inversion table and doing his exercises. Pt partially R shoulder a long time ago playing football and trying to hit a travon in his thigh and a doctor popped it back in place. He works out with dumbells every week but causes mild discomfort that lingers for short time. Occ sleep on it wrong, will wake w /it hurting. Occ hip pain when sleeps on soft mattress R mostly. Treatment Goals Patient/Caregiver Goals Improve ROM, make pain go away , prevent further degeneration PT-OP-C Subjective Start: 09/08/21 17:49 Freq: Status: Active Protocol: Document 12/21/21 09:06 [facility] (Rec: 12/21/21 09:51 [facility] [id number]) OP-PT Subjective Patient Comments Patient Comments Pt reports about 1.5 weeks ago sleeping on L shoulder wrong and notes soreness. Pt reports he did it again and is still sore PT-OP-D Balance Start: 09/08/21 17:49 Freq: Status: Active Protocol: Document 09/09/21 08:18 [facility] (Rec: 09/09/21 09:06 [facility] [id number]) Balance Tests Single Limb Standing Single Limb- Right 30 sec Single Limb- Left slight shear L and trunk lean L 30 sec PT-OP-F Manual Assessment Start: 09/08/21 17:49 Freq: Status: Active Protocol: Document 09/09/21 08:18 [facility] (Rec: 09/09/21 09:06 [facility] [id number]) Manual Assessments Soft Tissue Assessment Soft Tissue Mobility Assessment QL R tight, pec tight B, UT, scalenes, LS R tight Joint Mobility Assessment Joint Mobility Assessment 1st rib elevated R, equal greater trochanter, R iliac crest minor higher PT-OP-G Mobility & Gait Start: 09/08/21 17:49 Freq: Status: Active Protocol: Document 09/09/21 08:18 [facility] (Rec: 09/09/21 09:06 [facility] [id number]) OP Gait Assessment Comments Gait Comments dec pelvis motion overall, L lat lean L PT-OP-J Posture/Palpation/Skin Start: 09/08/21 17:49 Freq: Status: Active Protocol: Document 11/23/21 16:51 [facility] (Rec: 11/23/21 18:37 [facility] [id number]) Posture Evaluation Kelly Postural Classification System Vertebral Compression Test 4 Elbow Flexion Test 3 Lumbar Protective Mechanism Right AP 5 Lumbar Protective Mechanism Left PA 4 Lumbar Protective Mechanism Right PA 5 PT-OP-K Range of Motion Start: 09/08/21 17:49 Freq: Status: Active Protocol: Document 11/23/21 16:51 [facility] (Rec: 11/23/21 18:37 [facility] [id number]) Shoulder Goniometric Range of Motion Shoulder Right Active Flexion 155 Extension 62 Abduction 174 External Rotation at 90 degrees 95 Abduction Internal Rotation Behind Back (text) T9 Left Active Flexion 147 Extension 53 Abduction 178 External Rotation at 90 degrees 100 Abduction External Rotation at 0 degrees Abduction 66 Internal Rotation Behind Back (text) T9 PT-OP-L Special Tests Start: 09/08/21 17:49 Freq: Status: Active Protocol: Document 09/15/21 07:31 [facility] (Rec: 09/15/21 12:16 [facility] [id number]) Special Tests Shoulder Special Tests Lateral Crank Test Test Results pain w/IR L, neg R Slap Prehention test Test Results neg B PT-OP-M Strength Start: 09/08/21 17:49 Freq: Status: Active Protocol: Document 11/23/21 16:51 [facility] (Rec: 11/23/21 18:37 [facility] [id number]) Shoulder Strength Shoulder Manual Muscle Testing Right Flexion 5 Normal Extension 5 Normal Abduction (C5) 5 Normal External Rotation 5 Normal Internal Rotation 5 Normal Horizontal Abduction 5 Normal Horizontal Adduction 5 Normal Left Flexion 5 Normal Extension 5 Normal Abduction (C5) 5 Normal External Rotation 5 Normal Internal Rotation 5 Normal Horizontal Abduction 5 Normal Horizontal Adduction 5 Normal Comments minor pain abd & flex, Habd Hip Strength Hip Manual Muscle Testing Right Flexion (L2) 4+ Good+ Extension (S1) 4 Good Abduction 4 Good Adduction 5 Normal External Rotation 4+ Good+ Internal Rotation 5 Normal Left Flexion (L2) 4+ Good+ Extension (S1) 4 Good Abduction 4+ Good+ Adduction 5 Normal External Rotation 5 Normal Internal Rotation 5 Normal PT-OP-Q Treatments Start: 09/08/21 17:49 Freq: Status: Active Protocol: Document 12/21/21 09:06 [facility] (Rec: 12/21/21 09:51 [facility] [id number]) Therapeutic Exercises Standing Exercises ER Standing Exercise Name 90/90 Side left Equipment Used L1 Reps/Minutes 10 RDL Standing Exercise Name 1. DL 2. SL Side bilateral Comments verbal review Manual Therapy Treatment Soft Tissue Mobilization shoulder Body Location L scalenes, UT, lats, teres, pecs Mobilization Type Rolling Intensity/Depth Moderate Comments s/l & supine Joint Mobilizations shoulder Comments L AC gapping FM L GH post, inf & distractive & PA glides FM ribs Comments first rib caudal FM L PT-OP-T Assessment and Plan Start: 09/08/21 17:49 Freq: Status: Active Protocol: Document 12/21/21 09:06 [facility] (Rec: 12/21/21 09:51 [facility] [id number]) Physical Therapy Assessment Goals activities Short Term Goal (STG) Pt will have imrpoved ROM in B shoulders to allow no pain during ADLs STG Duration achieved Building Insulation Installer Goal (LTG) Pt will be able to stand as needed and back pack and lift w/o inc back pain or shoulder pain. 11/23-lifting and standing ok but notes he has to move around when standing. Has not done any lengthy backpack trips LTG Duration 11/09/21 posture Building Insulation Installer Goal (LTG) Pt will show improved postural alignment by scoring at least 4/5 on VCT. LTG Duration achieved strength Short Term Goal (STG) Pt will be indep w/HEP STG Duration achieved advancing as needed Building Insulation Installer Goal (LTG) pt will show improved stability as noted by 5/5 UE and LE MMT and at least 4/5 on LPM and EFT in order to allow him to do typical active lifestyle w/o inc pain. 11/23-much improved LTG Duration 01/24/22 Assessment Summary Assessment Pt had improved Habd in 90/90 position but did still have some discomfort. He had elevation of L ribcage which was likely affecting L shoulder pain Physical Therapy Plan Frequency and Duration Frequency of Treatment 1-2x/week Duration of Treatment 2 months Plan of Care Start Date 11/23/21 Plan of Care End Date 01/24/22 Next Visit Focus/Plan Next Note Type Treatment Note Next Visit Plan work on glute facilitation & work on L schoulder stability * mobility (L ribcage)
--- NOTE | 2021-12-30 17:54 | PT.OTN ---
Current Diagnoses Primary osteoarthritis, unspecified shoulder (12/30/21) Spondylosis, unspecified (12/30/21) Muscle weakness (generalized) (12/30/21) Difficulty in walking, not elsewhere classified (12/30/21) Abnormal posture (12/30/21) Physical Therapy Treatment Note PT-OP-A Visit Information Start: 09/08/21 17:49 Freq: Status: Active Protocol: Document 12/30/21 17:48 [facility] (Rec: 12/30/21 17:53 [facility] [id number]) Out-Patient Physical Therapy Visit Information Visit Information Visit Type Discharge Summary Visit Start Time 16:47 Visit Stop Time 17:40 Total Visit Minutes 50 Visit Number 9 Number of PRODUCT SUPPORT MANAGER Visits 0 PT-OP-B Current Condition Start: 09/08/21 17:49 Freq: Status: Active Protocol: Document 09/09/21 08:18 [facility] (Rec: 09/09/21 09:06 [facility] [id number]) Current Condition History of Current Condition Onset Date chronic Current Complaints B shoulders and back History of Current Condition Pt reports he hurt L shoulder swimming on vacation and a wave pulled on it and after a couple days when back to its normal aching. Pt reports Pt had sacroiliatis and did PT for that and that helped. His back started bothering him a couple years ago after getting a new wallet and sitting on it hurt R LB but back pain stayed. He had weakness in R leg initially and numbness but that has gotten better w/use of inversion table and doing his exercises. Pt partially R shoulder a long time ago playing football and trying to hit a travon in his thigh and a doctor popped it back in place. He works out with dumbells every week but causes mild discomfort that lingers for short time. Occ sleep on it wrong, will wake w /it hurting. Occ hip pain when sleeps on soft mattress R mostly. Treatment Goals Patient/Caregiver Goals Improve ROM, make pain go away , prevent further degeneration PT-OP-C Subjective Start: 09/08/21 17:49 Freq: Status: Active Protocol: Document 12/30/21 17:48 [facility] (Rec: 12/30/21 17:53 [facility] [id number]) OP-PT Subjective Patient Comments Patient Comments Pt reports sleeping on his shoulder funny again so it is mildy sore. PT-OP-D Balance Start: 09/08/21 17:49 Freq: Status: Active Protocol: Document 09/09/21 08:18 [facility] (Rec: 09/09/21 09:06 [facility] [id number]) Balance Tests Single Limb Standing Single Limb- Right 30 sec Single Limb- Left slight shear L and trunk lean L 30 sec PT-OP-F Manual Assessment Start: 09/08/21 17:49 Freq: Status: Active Protocol: Document 09/09/21 08:18 [facility] (Rec: 09/09/21 09:06 [facility] [id number]) Manual Assessments Soft Tissue Assessment Soft Tissue Mobility Assessment QL R tight, pec tight B, UT, scalenes, LS R tight Joint Mobility Assessment Joint Mobility Assessment 1st rib elevated R, equal greater trochanter, R iliac crest minor higher PT-OP-G Mobility & Gait Start: 09/08/21 17:49 Freq: Status: Active Protocol: Document 09/09/21 08:18 [facility] (Rec: 09/09/21 09:06 [facility] [id number]) OP Gait Assessment Comments Gait Comments dec pelvis motion overall, L lat lean L PT-OP-J Posture/Palpation/Skin Start: 09/08/21 17:49 Freq: Status: Active Protocol: Document 12/30/21 17:48 [facility] (Rec: 12/30/21 17:53 [facility] [id number]) Posture Evaluation [facility] Postural Classification System Elbow Flexion Test 5 Lumbar Protective Mechanism Left AP 4 Lumbar Protective Mechanism Right AP 4 Lumbar Protective Mechanism Left PA 4 Lumbar Protective Mechanism Right PA 5 PT-OP-K Range of Motion Start: 09/08/21 17:49 Freq: Status: Active Protocol: Document 11/23/21 16:51 [facility] (Rec: 11/23/21 18:37 [facility] [id number]) Shoulder Goniometric Range of Motion Shoulder Right Active Flexion 155 Extension 62 Abduction 174 External Rotation at 90 degrees 95 Abduction Internal Rotation Behind Back (text) T9 Left Active Flexion 147 Extension 53 Abduction 178 External Rotation at 90 degrees 100 Abduction External Rotation at 0 degrees Abduction 66 Internal Rotation Behind Back (text) T9 PT-OP-L Special Tests Start: 09/08/21 17:49 Freq: Status: Active Protocol: Document 09/15/21 07:31 [facility] (Rec: 09/15/21 12:16 [facility] [id number]) Special Tests Shoulder Special Tests Lateral Crank Test Test Results pain w/IR L, neg R Slap Prehention test Test Results neg B PT-OP-M Strength Start: 09/08/21 17:49 Freq: Status: Active Protocol: Document 12/30/21 17:48 [facility] (Rec: 12/30/21 17:54 [facility] [id number]) Shoulder Strength Shoulder Manual Muscle Testing Right Flexion 5 Normal Extension 5 Normal Abduction (C5) 5 Normal External Rotation 5 Normal Internal Rotation 5 Normal Horizontal Abduction 5 Normal Horizontal Adduction 5 Normal Left Flexion 5 Normal Extension 5 Normal Abduction (C5) 5 Normal External Rotation 5 Normal Internal Rotation 5 Normal Horizontal Abduction 5 Normal Horizontal Adduction 5 Normal Comments no pain PT-OP-Q Treatments Start: 09/08/21 17:49 Freq: Status: Active Protocol: Document 12/30/21 17:48 [facility] (Rec: 12/30/21 17:53 [facility] [id number]) Therapeutic Exercises Supine Exercises axial elongation Supine Exercise Name w/hold Reps/Minutes 5 sec x5 Sidelying Exercises self first rib mob Side left Reps/Minutes 5 Sitting Exercises self first rib mob Side left Reps/Minutes 10 Standing Exercises wall posture Standing Exercise Name w/90/90 ER Side bilateral Reps/Minutes 2 min Manual Therapy Treatment Soft Tissue Mobilization shoulder Body Location L scalenes, UT, lats, teres, pecs Mobilization Type Rolling Intensity/Depth Moderate Comments s/l & supine Joint Mobilizations shoulder Comments L AC gapping FM L GH post, inf & distractive & PA glides FM thoracic spine Comments T1-5 PA & R UPA T1-3 T4-5 UPA L FM supine & seated ribs Comments first rib caudal FM L PT-OP-T Assessment and Plan Start: 09/08/21 17:49 Freq: Status: Active Protocol: Document 12/30/21 17:48 [facility] (Rec: 12/30/21 17:53 [facility] [id number]) Physical Therapy Assessment Goals activities Short Term Goal (STG) Pt will have imrpoved ROM in B shoulders to allow no pain during ADLs STG Duration achieved Nursing Home Goal (LTG) Pt will be able to stand as needed and back pack and lift w/o inc back pain or shoulder pain. 11/23-lifting and standing ok but notes he has to move around when standing. Has not done any lengthy backpack trips LTG Duration achieved-pt has done short trips w/loaded backpack posture Nursing Home Goal (LTG) Pt will show improved postural alignment by scoring at least 4/5 on VCT. LTG Duration achieved strength Short Term Goal (STG) Pt will be indep w/HEP STG Duration achieved advancing as needed Nursing Home Goal (LTG) pt will show improved stability as noted by 5/5 UE and LE MMT and at least 4/5 on LPM and EFT in order to allow him to do typical active lifestyle w/o inc pain. 11/23-much improved LTG Duration achieved Assessment Summary Assessment Pt has met all goals w/PT and is doing well with exercises. He is given 1st rib mob for self mobs at home for hwen he sleeps on soulder wrong when travelling for work. No major issues at this time w/pain limiting pt. DC at this time d /t meeting goals. Physical Therapy Plan Discharge Physical Therapy Discharge Reasons Goals Met
== END 2022-01-04 12:28 ==
LOC: PHYS 16:45
PROVIDERS: Family Provider Family Medicine; PCP Family Medicine; Referring Provider Family Medicine; Visit Provider Family Medicine
DX: M19.019 Primary osteoarthritis, unspecified shoulder (principal); M47.9 Spondylosis, unspecified; M62.81 Muscle weakness (generalized); R29.3 Abnormal posture; R26.2 Difficulty in walking, not elsewhere classified
CPT/HCPCS: 97110; 97140; 97162; 97535

== ENCOUNTER → 2022-04-05 11:26 | Outpatient (CLI) | payer OTHER, SELFPAY ==
[2022-04-05 13:01] LABS: Add Manual Diff / Slide Review NO; Basophils Absolute Auto 0 /uL (0-100); Basophils Percent Auto 1.2 % (0-2); Eosinophils Absolute Auto 100 /uL (0-450); Eosinophils Percent Auto 2.1 % (2-4); Hemoglobin 13.6 g/dL (13.5-17.5); Lymphocytes Absolute Auto 1300 /uL (1100-4500); Mean Corpuscular HGB Conc 35.8 % (30-36); Mean Corpuscular Hemoglobin 34.1 PG (26-34); Mean Corpuscular Volume 95.3 fL (80-100); Monocytes Absolute Auto 500 /uL (0-900); Monocytes Percent Auto 16.5 % (3-14); Neutrophils Absolute Auto 1300 /uL (1500-7000); Neutrophils Percent Auto 40.2 % (50-75); Platelet Count 237 X10^3/uL (150-400); Red Blood Cell Count 3.98 X10^6/uL (4.5-5.9); Red Cell Distribution Width 12.6 % (11.6-14.8); White Blood Cell Count 3.3 X10^3/uL (4.5-11.0)
[2022-04-05 16:47] LABS: Alanine Aminotransferase 41 IU/L (<50); Albumin 4.6 g/dL (3.5-5.0); Albumin Globulin Ratio 1.4 (1.0-2.8); Alkaline Phosphatase 51 U/L (38-126); Aspartate Aminotransferase 33 IU/L (17-59); BUN Creatinine Ratio 14.1 (6-22); Bilirubin Total 0.9 mg/dL (0.2-1.3); Blood Urea Nitrogen 10 mg/dL (9-20); Calcium 8.8 mg/dL (8.4-10.2); Carbon Dioxide 19 mmol/L (22-32); Chloride 96 mmol/L (98-107); Cholesterol 169 mg/dL (140-199); Estimated Glomerular Filt Rate > 60 mL/min (>60); Globulin 3.3 g/dL (1.7-4.1); Glucose 101 mg/dL (80-110); HDL Cholesterol 55 mg/dL (40-60); HEMOLYSIS < 15 (0-50); LDL Cholesterol Calculated 100 mg/dL (<100); Potassium 4.2 mmol/L (3.4-5.1); Sodium 128 mmol/L (137-145); Total Protein 7.9 g/dL (6.3-8.2); Triglycerides 69 mg/dL (35-150)
[2022-04-06 15:08] LABS: Hemoglobin A1C% w Est Avg Glu 5.6 % (4.0-6.0)
== END ==
PROVIDERS: Family Provider Family Medicine; PCP Family Medicine; Referring Provider Family Medicine; Visit Provider Family Medicine
DX: Z00.01 Encounter for general adult medical examination with abnormal findings (principal); E78.2 Mixed hyperlipidemia; E87.1 Hypo-osmolality and hyponatremia
CPT/HCPCS: 36415; 80053; 80061; 83036; 85025

== ENCOUNTER → 2023-04-01 08:49 | Outpatient (CLI) | payer OTHER, SELFPAY ==
[2023-04-01 09:28] LABS: Add Manual Diff / Slide Review NO; Basophils Absolute Auto 100 /uL (0-100); Basophils Percent Auto 1.6 % (0-2); Eosinophils Absolute Auto 100 /uL (0-450); Eosinophils Percent Auto 2.7 % (2-4); Hematocrit 41.2 % (41-53); Hemoglobin 14.3 g/dL (13.5-17.5); Lymphocytes Absolute Auto 1300 /uL (1100-4500); Lymphocytes Percent Auto 36.9 % (25-40); Mean Corpuscular HGB Conc 34.6 % (30-36); Mean Corpuscular Volume 98.2 fL (80-100); Monocytes Absolute Auto 500 /uL (0-900); Monocytes Percent Auto 14.2 % (3-14); Neutrophils Absolute Auto 1600 /uL (1500-7000); Neutrophils Percent Auto 44.6 % (50-75); Platelet Count 264 X10^3/uL (150-400); Red Blood Cell Count 4.19 X10^6/uL (4.5-5.9); Red Cell Distribution Width 12.7 % (11.6-14.8); White Blood Cell Count 3.6 X10^3/uL (4.5-11.0)
[2023-04-01 10:49] LABS: HIV 1 & 2 Ab/Ag 4th Gen Combo NEGATIVE (NEGATIVE); Hep C Virus Ab w/Reflex Quant NEGATIVE s/c (NEGATIVE)
[2023-04-01 11:17] LABS: HEMOLYSIS < 15 (0-50); Prostate Specific Antigen Scrn 0.272 ng/mL (0.1-4.0)
[2023-04-01 11:25] LABS: Alanine Aminotransferase 47 IU/L (<50); Albumin 4.7 g/dL (3.5-5.0); Albumin Globulin Ratio 1.4 (1.0-2.8); Alkaline Phosphatase 42 U/L (38-126); Aspartate Aminotransferase 37 IU/L (17-59); BUN Creatinine Ratio 17.9 (6-22); Blood Urea Nitrogen 14 mg/dL (9-20); Calcium 9.6 mg/dL (8.4-10.2); Carbon Dioxide 19 mmol/L (22-32); Chloride 101 mmol/L (98-107); Cholesterol 197 mg/dL (140-199); Estimated Glomerular Filt Rate > 60 mL/min (>60); Globulin 3.4 g/dL (1.7-4.1); Glucose 113 mg/dL (80-110); HDL Cholesterol 61 mg/dL (40-60); LDL Cholesterol Calculated 124 mg/dL (<100); Potassium 4.8 mmol/L (3.4-5.1); Sodium 133 mmol/L (137-145); Total Protein 8.1 g/dL (6.3-8.2); Triglycerides 59 mg/dL (35-150)
[2023-04-05 04:53] LABS: Lipoprotein (a) 21.5 nmol/L (<75.0)
== END ==
PROVIDERS: Family Provider Family Medicine; PCP Family Medicine; Referring Provider Pediatrics; Visit Provider Pediatrics
DX: Z12.5 Encounter for screening for malignant neoplasm of prostate (principal); E87.1 Hypo-osmolality and hyponatremia; E78.2 Mixed hyperlipidemia; M46.1 Sacroiliitis, not elsewhere classified; D72.819 Decreased white blood cell count, unspecified
CPT/HCPCS: 36415; 80053; 80061; 83695; 85025; 86803; 87389; G0103

== ENCOUNTER 2023-07-28 09:45 | Outpatient (RCR) | payer OTHER, SELFPAY ==
--- NOTE | 2023-06-27 18:20 | PT.OIE ---
Current Diagnoses Difficulty in walking, not elsewhere classified (06/27/23) Weakness (06/27/23) Strain of left Achilles tendon, subsequent encounter (06/27/23) Past Medical History (Last Updated 04/30/21 @ 09:42 by Willy Ahn MD) Ankle pain (~1993) Bilateral shoulder pain Diverticular disease Encounter for general adult medical examination with abnormal findings Eustachian tube dysfunction Fractures (~2007) Hyperlipidemia Hyponatremia Low back pain Sacroiliitis Sinusitis Past Surgical History (Last Updated 10/25/20 @ 06:46 by Alena Bradley) Anesthesia History of ankle surgery (~2007) Visit Care Team Role Provider Type Willy Ahn MD Attending Provider Physician Family Provider Primary Care Provider Referring Provider Specialty: Family Practice Address: [address] [place] [address] Email: [email or web address] Physical Therapy Initial Evaluation PT-OP-A Visit Information Start: 06/27/23 10:10 Freq: Status: Active Protocol: Document 06/27/23 13:00 [facility] (Rec: 06/27/23 13:55 [facility] [id number]) Out-Patient Physical Therapy Visit Information Visit Information Visit Type Initial Evaluation Visit Start Time 13:00 Visit Stop Time 13:45 Visit Number 06/14 Number of COMBER OPERATOR Visits 0 PT-OP-B Current Condition Start: 06/27/23 10:10 Freq: Status: Active Protocol: Document 06/27/23 13:00 [facility] (Rec: 06/27/23 13:55 [facility] [id number]) Current Condition History of Current Condition Current Complaints L achilles and heel pain History of Current Condition Pt presents w/L achilles pain and heel pain onset after lifting a hot tub 5 -6 months ago. Pt has hx of R achilles rupture and repair and L fibular break and ligament sprain lat as teenager, L MT 1 -2 avulsion fx, soleus tear x2 (in his 20s and another time 6-7 years ago), another injury after son running into [employer] w/shopping cart all at different points in his life. He has been walking around to help his brother the past couple weeks and has in the past week noticed L calf pain too. Certain shoes like flat shoes bother it. 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 It was intermittent until 3 weeks ago and then after taking dog for hike in snow and it really inc to be more frequent. Hx of LBP that hasn't worsened w/lift. Has not seen a lawn maintenance worker. No other treatment. Denies numbness/tingling and no pian in upper leg. Pt has hx of also tearing HS mult times B. On L side occ, for long bikes it does inc pain. prior to lifting hot tub, was having pain in achilles but very intermittent mostly w/specific shoes. Treatment Goals Patient/Caregiver Goals get back to walking, be able to work without pain, be able hike, run and do stairs PT-OP-C Subjective Start: 06/27/23 10:10 Freq: Status: Active Protocol: Document 06/27/23 13:00 [facility] (Rec: 06/27/23 13:55 [facility] [id number]) Patient Questionnaires Lower Extremity Functional Scale LEFS Score 60/80 OP-PT Pain Assessment Location L ankle Pain Location Details L distal achilles and inf heel Scale Used best:3/10 worst:8/10 Description Aching,Sharp,With Movement Pain Aggravating Factors Walking,Stair Climbing Other Pain Aggravating Factors set break on plane, standing on bike, flat shoes Pain Alleviating Factors Cold,Inactivity Other Pain Alleviating Factors taping, compression wrap PT-OP-D Balance Start: 06/27/23 10:10 Freq: Status: Active Protocol: Document 06/27/23 13:00 [facility] (Rec: 06/27/23 13:55 [facility] [id number]) Balance Tests Single Limb Standing Single Limb- Right >30 sec Single Limb- Left 8 sec w/pain PT-OP-F Manual Assessment Start: 06/27/23 10:10 Freq: Status: Active Protocol: Document 06/27/23 13:00 [facility] (Rec: 06/27/23 13:55 [facility] [id number]) Manual Assessments Soft Tissue Assessment Soft Tissue Mobility Assessment tenderness to achilles and calf PT-OP-G Mobility & Gait Start: 06/27/23 10:10 Freq: Status: Active Protocol: Document 06/27/23 13:00 [facility] (Rec: 06/27/23 13:55 [facility] [id number]) OP Gait Assessment Comments Gait Comments Pt has dec stance time on LLE w/slower gait and dec LLE pusho ff PT-OP-K Range of Motion Start: 06/27/23 10:10 Freq: Status: Active Protocol: Document 06/27/23 13:00 [facility] (Rec: 06/27/23 13:55 [facility] [id number]) Ankle and Foot Goniometric Range of Motion Ankle and Foot Right Active Dorsiflexion with Knee Flexed 2 Dorsiflexion with Knee Extended 4 Plantarflexion 51 Inversion 38 Eversion 23 Comments lacking DF to neutral in knee ext position Left Active Dorsiflexion with Knee Flexed 1 Dorsiflexion with Knee Extended 8 Plantarflexion 57 Inversion 34 Eversion 23 Comments lacking DF to neutral in both posiitons; pain w/DF & inversion PT-OP-L Special Tests Start: 06/27/23 10:10 Freq: Status: Active Protocol: Document 06/27/23 13:00 [facility] (Rec: 06/27/23 13:55 [facility] [id number]) Special Tests Lumbar Spine Special Tests Slump Test Results positive L PT-OP-M Strength Start: 06/27/23 10:10 Freq: Status: Active Protocol: Document 06/27/23 13:00 [facility] (Rec: 06/27/23 13:55 [facility] [id number]) Hip Strength Hip Manual Muscle Testing Right Flexion (L2) 3+ Fair+ Extension (S1) 3+ Fair+ External Rotation 5 Normal Internal Rotation 5 Normal Left Flexion (L2) 3+ Fair+ Extension (S1) 3+ Fair+ Abduction 4+ Good+ External Rotation 4- Good- Internal Rotation 5 Normal Comments pain ER; HS discomfort w/ext Knee Strength Knee Manual Muscle Testing Right Flexion (S2) 5 Normal Extension (L3) 5 Normal Left Flexion (S2) 4 Good Extension (L3) 5 Normal Ankle/Foot Strength Ankle and Foot Manual Muscle Testing Right Dorsiflexion (L4) 5 Normal Plantarflexion (S1) 5 Normal Inversion 5 Normal Eversion (S1) 5 Normal Comments 20 heel raises Left Dorsiflexion (L4) 4- Good- Plantarflexion (S1) 2+ Poor+ Inversion 4+ Good+ Eversion (S1) 5 Normal Comments pain DF and PF; unable to do heel raise Toe Strength Toe Manual Muscle Testing Right 2nd Toe Flexion 5 Normal Extension 5 Normal Comments toes 2-5 Left 2nd Toe Flexion 4 Good Extension 5 Normal Comments toes 2-5; pain w/flex Right Great Toe Flexion 4 Good Extension 4 Good Left Great Toe Flexion 5 Normal Extension 4 Good Comments pain w/ext PT-OP-Q Treatments Start: 06/27/23 10:10 Freq: Status: Active Protocol: Document 06/27/23 13:00 [facility] (Rec: 06/27/23 13:55 [facility] [id number]) Therapeutic Exercises Supine Exercises n glide Supine Exercise Name sciatic (seated and supine Side left Reps/Minutes 5 ea PT-OP-R Modalities Start: 06/27/23 10:10 Freq: Status: Active Protocol: Document 06/27/23 13:00 [facility] (Rec: 06/27/23 13:55 [facility] [id number]) Ultrasound Therapy Treatment achilles Patient Position Sidelying Coupling Medium Ultrasound Gel Applicator Size (cm2) 2 Frequency Setting (mHz) 1 Mode Setting Pulsed Duty Cycle 50% Intensity Setting (w/cm2) 1 PT-OP-T Assessment and Plan Start: 06/27/23 10:10 Freq: Status: Active Protocol: Document 06/27/23 13:00 [facility] (Rec: 06/27/23 13:55 [facility] [id number]) Physical Therapy Assessment Rehab Potential Rehabilitation Potential Good Evaluation Complexity Number of Personal Factors/Comorbidities 3 or More Number of Body Systems Impaired 4 or More Clinical Presentation at Evaluation Evolving Impairments Impairments Activity Tolerance,Balance, Functional Activities, Functional Mobility,Gait,Pain, Posture,ROM,Soft Tissue Mobility,Strength Goals activity Short Term Goal (STG) Pt will be able to go for short (1 mile) flat walks and stand on bike when biking w/o inc pain greater than 2/10 STG Duration 08/11/23 Mill Tender Washing Goal (LTG) Pt will be able to hike on uneven terrain and run w/o inc pain LTG Duration 09/19/23 balance Short Term Goal (STG) Pt will be able to do 15 sec SLS on LLE w/o inc pain. STG Duration 08/15/23 Mill Tender Washing Goal (LTG) Pt will be able to do 30 sec SLS on LLE w/o inc pain. LTG Duration 09/19/23 strength Short Term Goal (STG) Pt will be indep w/HEP STG Duration 08/10 Mill Tender Washing Goal (LTG) Pt will score at least 4+/5 on MMT B LEs to show improved strength and stability to allow return to activity w/o inc pain LTG Duration 09/19/23 LEFS Impairment 60/80 Short Term Goal (STG) Pt will improve score to at least 70/80 to show improved functional ability. STG Duration 08/15/23 Fpc Goal (LTG) Pt will improve score to at least 78/80 to show improved functional ability. LTG Duration 09/19/23 Assessment Summary Assessment Pt presents w/L achilles pain that inc in frequency about 5- 6 months ago when moving a hot tub and havign to put signfiicant wt on that leg. It was still intermittent until he took his lg dog for a hike in the snow and achilles pain and heel pain inc to more frequent and after the last week of hobbling more to help brother, calf has become sore also. He has pain w/ inversion and w/PF resisted and w/active DF at achilles region along w/some toe motions. He potentially has injury to post tib and flexor digatorum also that contribute to the pain. He does have positive slump which may indicate neural involvement in pain. Pt would benefit from skilled PT to address his pain and return him to his active lifestyle. Physical Therapy Plan Frequency and Duration Frequency of Treatment 1-3x/wk Duration of treatment (weeks) 12 Plan of Care Start Date 06/27/23 Plan of Care End Date 09/19/23 Therapeutic Interventions Therapeutic Interventions Balance Training,Gait Training ,Home Exercise Program,Joint Mobilizations,Manual Therapy, Neuromuscular Re-education, Orthotic/Prosthetic Management ,Patient/Caregiver Education, Self-Care/Home Management,Soft Tissue Mobilization,Taping, Therapeutic Activities, Therapeutic Exercises Modalities Cold Pack/Ice Massage,Electric Stimulation,Hot Packs, Infrared Therapy,Iontophoresis ,Ultrasound Other Therapeutic Interventions dexamethasone Next Visit Focus/Plan Next Note Type Treatment Note Next Visit Plan tape achilles manual to calf and ankle mobility US to achilles laser to achilles exercises: tband PF ,soleus strength seated, inversion tband
--- NOTE | 2023-06-27 18:20 | PT.OPPOC ---
Physical, Occupational & Speech Therapy At [facility] Current Diagnoses Difficulty in walking, not elsewhere classified (06/27/23) Weakness (06/27/23) Strain of left Achilles tendon, subsequent encounter (06/27/23) Visit Care Team Role Provider Type Willy Ahn MD Attending Provider Physician Family Provider Primary Care Provider Referring Provider Specialty: Family Practice Address: [address] [place] [address], [facility] Email: [email or web address] Plan Of Care PT-OP-T Assessment and Plan Start: 06/27/23 10:10 Freq: Status: Active Protocol: Document 06/27/23 13:00 [facility] (Rec: 06/27/23 13:55 [facility] [id number]) Physical Therapy Assessment Rehab Potential Rehabilitation Potential Good Evaluation Complexity Number of Personal Factors/Comorbidities 3 or More Number of Body Systems Impaired 4 or More Clinical Presentation at Evaluation Evolving Impairments Impairments Activity Tolerance,Balance, Functional Activities, Functional Mobility,Gait,Pain, Posture,ROM,Soft Tissue Mobility,Strength Goals activity Short Term Goal (STG) Pt will be able to go for short (1 mile) flat walks and stand on bike when biking w/o inc pain greater than 2/10 STG Duration 08/11/23 Inside Trucker Goal (LTG) Pt will be able to hike on uneven terrain and run w/o inc pain LTG Duration 09/19/23 balance Short Term Goal (STG) Pt will be able to do 15 sec SLS on LLE w/o inc pain. STG Duration 08/15/23 Inside Trucker Goal (LTG) Pt will be able to do 30 sec SLS on LLE w/o inc pain. LTG Duration 09/19/23 strength Short Term Goal (STG) Pt will be indep w/HEP STG Duration 08/10 Inside Trucker Goal (LTG) Pt will score at least 4+/5 on MMT B LEs to show improved strength and stability to allow return to activity w/o inc pain LTG Duration 09/19/23 LEFS Impairment 60/80 Short Term Goal (STG) Pt will improve score to at least 70/80 to show improved functional ability. STG Duration 08/15/23 Inside Trucker Goal (LTG) Pt will improve score to at least 78/80 to show improved functional ability. LTG Duration 09/19/23 Assessment Summary Assessment Pt presents w/L achilles pain that inc in frequency about 5- 6 months ago when moving a hot tub and havign to put signfiicant wt on that leg. It was still intermittent until he took his lg dog for a hike in the snow and achilles pain and heel pain inc to more frequent and after the last week of hobbling more to help brother, calf has become sore also. He has pain w/ inversion and w/PF resisted and w/active DF at achilles region along w/some toe motions. He potentially has injury to post tib and flexor digatorum also that contribute to the pain. He does have positive slump which may indicate neural involvement in pain. Pt would benefit from skilled PT to address his pain and return him to his active lifestyle. Physical Therapy Plan Frequency and Duration Frequency of Treatment 1-3x/wk Duration of treatment (weeks) 12 Plan of Care Start Date 06/27/23 Plan of Care End Date 09/19/23 Therapeutic Interventions Therapeutic Interventions Balance Training,Gait Training ,Home Exercise Program,Joint Mobilizations,Manual Therapy, Neuromuscular Re-education, Orthotic/Prosthetic Management ,Patient/Caregiver Education, Self-Care/Home Management,Soft Tissue Mobilization,Taping, Therapeutic Activities, Therapeutic Exercises Modalities Cold Pack/Ice Massage,Electric Stimulation,Hot Packs, Infrared Therapy,Iontophoresis ,Ultrasound Other Therapeutic Interventions dexamethasone Next Visit Focus/Plan Next Note Type Treatment Note Next Visit Plan tape achilles manual to calf and ankle mobility US to achilles laser to achilles exercises: tband PF ,soleus strength seated, inversion tband Plan of Care Dates Plan of Care Start Date 06/27/23 Plan of Care End Date 09/19/23 Electronically Signed by: Ciera Hernandez, PT 06/27/23 4196 If you are in agreement with this Plan of Care, please return a signed and dated copy. I have reviewed this Plan of Care and certify that the skilled therapy services above are required to meet the patient?s needs. Physician Signature Date Printed Name and Credentials Clinical Instructor Signature Printed Name and Credentials
--- NOTE | 2023-06-28 17:19 | PT.OTN ---
Current Diagnoses Difficulty in walking, not elsewhere classified (06/28/23) Weakness (06/28/23) Strain of left Achilles tendon, subsequent encounter (06/28/23) Physical Therapy Treatment Note PT-OP-A Visit Information Start: 06/27/23 10:10 Freq: Status: Active Protocol: Document 06/28/23 09:51 [facility] (Rec: 06/28/23 17:19 [facility] [id number]) Out-Patient Physical Therapy Visit Information Visit Information Visit Type Treatment Note Visit Start Time 09:48 Visit Stop Time 10:30 Visit Number Number of POWER BRAKE OPERATOR Visits 0 PT-OP-B Current Condition Start: 06/27/23 10:10 Freq: Status: Active Protocol: Document 06/27/23 13:00 [facility] (Rec: 06/27/23 13:55 [facility] [id number]) Current Condition History of Current Condition Current Complaints L achilles and heel pain History of Current Condition Pt presents w/L achilles pain and heel pain onset after lifting a hot tub 5 -6 months ago. Pt has hx of R achilles rupture and repair and L fibular break and ligament sprain lat as teenager, L MT 1 -2 avulsion fx, soleus tear x2 (in his 20s and another time 6-7 years ago), another injury after son running into achilles w/shopping cart all at different points in his life. He has been walking around to help his brother the past couple weeks and has in the past week noticed L calf pain too. Certain shoes like flat shoes bother it. 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 It was intermittent until 3 weeks ago and then after taking dog for hike in snow and it really inc to be more frequent. Hx of LBP that hasn't worsened w/lift. Has not seen a poultry hatchery manager. No other treatment. Denies numbness/tingling and no pian in upper leg. Pt has hx of also tearing HS mult times B. On L side occ, for long bikes it does inc pain. prior to lifting hot tub, was having pain in achilles but very intermittent mostly w/specific shoes. Treatment Goals Patient/Caregiver Goals get back to walking, be able to work without pain, be able hike, run and do stairs PT-OP-C Subjective Start: 06/27/23 10:10 Freq: Status: Active Protocol: Document 06/28/23 09:51 [facility] (Rec: 06/28/23 17:19 [facility] [id number]) OP-PT Subjective Patient Comments Patient Comments Pt reports he tried to rest yesterday PT-OP-D Balance Start: 06/27/23 10:10 Freq: Status: Active Protocol: Document 06/27/23 13:00 [facility] (Rec: 06/27/23 13:55 [facility] [id number]) Balance Tests Single Limb Standing Single Limb- Right >30 sec Single Limb- Left 8 sec w/pain PT-OP-F Manual Assessment Start: 06/27/23 10:10 Freq: Status: Active Protocol: Document 06/27/23 13:00 [facility] (Rec: 06/27/23 13:55 [facility] [id number]) Manual Assessments Soft Tissue Assessment Soft Tissue Mobility Assessment tenderness to achilles and calf PT-OP-G Mobility & Gait Start: 06/27/23 10:10 Freq: Status: Active Protocol: Document 06/27/23 13:00 [facility] (Rec: 06/27/23 13:55 [facility] [id number]) OP Gait Assessment Comments Gait Comments Pt has dec stance time on LLE w/slower gait and dec LLE pusho ff PT-OP-K Range of Motion Start: 06/27/23 10:10 Freq: Status: Active Protocol: Document 06/27/23 13:00 [facility] (Rec: 06/27/23 13:55 [facility] [id number]) Ankle and Foot Goniometric Range of Motion Ankle and Foot Right Active Dorsiflexion with Knee Flexed 2 Dorsiflexion with Knee Extended 4 Plantarflexion 51 Inversion 38 Eversion 23 Comments lacking DF to neutral in knee ext position Left Active Dorsiflexion with Knee Flexed 1 Dorsiflexion with Knee Extended 8 Plantarflexion 57 Inversion 34 Eversion 23 Comments lacking DF to neutral in both posiitons; pain w/DF & inversion PT-OP-L Special Tests Start: 06/27/23 10:10 Freq: Status: Active Protocol: Document 06/27/23 13:00 [facility] (Rec: 06/27/23 13:55 [facility] [id number]) Special Tests Lumbar Spine Special Tests Slump Test Results positive L PT-OP-M Strength Start: 06/27/23 10:10 Freq: Status: Active Protocol: Document 06/27/23 13:00 [facility] (Rec: 06/27/23 13:55 [facility] [id number]) Hip Strength Hip Manual Muscle Testing Right Flexion (L2) 3+ Fair+ Extension (S1) 3+ Fair+ External Rotation 5 Normal Internal Rotation 5 Normal Left Flexion (L2) 3+ Fair+ Extension (S1) 3+ Fair+ Abduction 4+ Good+ External Rotation 4- Good- Internal Rotation 5 Normal Comments pain ER; HS discomfort w/ext Knee Strength Knee Manual Muscle Testing Right Flexion (S2) 5 Normal Extension (L3) 5 Normal Left Flexion (S2) 4 Good Extension (L3) 5 Normal Ankle/Foot Strength Ankle and Foot Manual Muscle Testing Right Dorsiflexion (L4) 5 Normal Plantarflexion (S1) 5 Normal Inversion 5 Normal Eversion (S1) 5 Normal Comments 20 heel raises Left Dorsiflexion (L4) 4- Good- Plantarflexion (S1) 2+ Poor+ Inversion 4+ Good+ Eversion (S1) 5 Normal Comments pain DF and PF; unable to do heel raise Toe Strength Toe Manual Muscle Testing Right 2nd Toe Flexion 5 Normal Extension 5 Normal Comments toes 2-5 Left 2nd Toe Flexion 4 Good Extension 5 Normal Comments toes 2-5; pain w/flex Right Great Toe Flexion 4 Good Extension 4 Good Left Great Toe Flexion 5 Normal Extension 4 Good Comments pain w/ext PT-OP-Q Treatments Start: 06/27/23 10:10 Freq: Status: Active Protocol: Document 06/28/23 09:51 [facility] (Rec: 06/28/23 17:19 [facility] [id number]) Therapeutic Exercises Sitting Exercises tband Sitting Exercise Name 1. PF 2. inversion Side left Equipment Used 1. Lvl 1, 2 , 3 2. lvl 3 Reps/Minutes 10 ea PF Side left Equipment Used 5# on knee Reps/Minutes 15 Manual Therapy Treatment Soft Tissue Mobilization calf Body Location gastroc and soleus Mobilization Type Rolling Body Position Supine Joint Mobilizations tibfib Joint distal tib AP FM talus Joint distraction calcaneus Joint distraction FM Taping KT Type of Tape Kinesio Tape Comments 1. I strip to post calf and achilles that turns to fan to foot 2. Y strip for calf starting at heel 3. I strip across achilles PT-OP-R Modalities Start: 02/12/24 10:10 Freq: Status: Active Protocol: Document 06/28/23 09:51 [facility] (Rec: 06/28/23 17:19 [facility] [id number]) Infrared Treatment Treatment L ankle Program or Protocal chronic mod tendon Comments lat & med achilles, post achilles, post heel x5min total Ultrasound Therapy Treatment achilles Patient Position Sidelying Coupling Medium Ultrasound Gel Applicator Size (cm2) 2 Frequency Setting (mHz) 1 Mode Setting Pulsed Duty Cycle 50% Intensity Setting (w/cm2) 1 PT-OP-T Assessment and Plan Start: 06/27/23 10:10 Freq: Status: Active Protocol: Document 06/28/23 09:51 [facility] (Rec: 06/28/23 17:19 [facility] [id number]) Physical Therapy Assessment Goals activity Short Term Goal (STG) Pt will be able to go for short (1 mile) flat walks and stand on bike when biking w/o inc pain greater than 2/10 STG Duration 08/11/23 Halfway Goal (LTG) Pt will be able to hike on uneven terrain and run w/o inc pain LTG Duration 09/19/23 balance Short Term Goal (STG) Pt will be able to do 15 sec SLS on LLE w/o inc pain. STG Duration 08/15/23 Follow Up Rep Goal (LTG) Pt will be able to do 30 sec SLS on LLE w/o inc pain. LTG Duration 09/19/23 strength Short Term Goal (STG) Pt will be indep w/HEP STG Duration 08/10 Follow Up Rep Goal (LTG) Pt will score at least 4+/5 on MMT B LEs to show improved strength and stability to allow return to activity w/o inc pain LTG Duration 09/19/23 LEFS Impairment 60/80 Short Term Goal (STG) Pt will improve score to at least 70/80 to show improved functional ability. STG Duration 08/15/23 Follow Up Rep Goal (LTG) Pt will improve score to at least 78/80 to show improved functional ability. LTG Duration 09/19/23 Assessment Summary Assessment Pt has slight improved DF w/ manual treatment today. Tape given to create support for achilles. Pt did well with new exercsies w/no pain as long has he stayed in a comfortable range and avoided to significant of DF Physical Therapy Plan Frequency and Duration Frequency of Treatment 1-3x/wk Duration of treatment (weeks) 12 Plan of Care Start Date 06/27/23 Plan of Care End Date 09/19/23 Next Visit Focus/Plan Next Note Type Treatment Note Next Visit Plan tape achilles manual to calf and ankle mobility US to achilles laser to achilles review and advance exercises: tband PF ,soleus strength seated, inversion tband
--- NOTE | 2023-06-30 15:33 | PT.OTN ---
Current Diagnoses Difficulty in walking, not elsewhere classified (06/30/23) Weakness (06/30/23) Strain of left Achilles tendon, subsequent encounter (06/30/23) Physical Therapy Treatment Note PT-OP-A Visit Information Start: 06/27/23 10:10 Freq: Status: Active Protocol: Document 06/30/23 14:32 [facility] (Rec: 06/30/23 15:33 [facility] [id number]) Out-Patient Physical Therapy Visit Information Visit Information Visit Type Treatment Note Visit Start Time 14:33 Visit Stop Time 15:19 Visit Number 08/12 Number of EMAIL MARKETING COORDINATOR Visits 0 PT-OP-B Current Condition Start: 06/27/23 10:10 Freq: Status: Active Protocol: Document 06/27/23 13:00 [facility] (Rec: 06/27/23 13:55 [facility] [id number]) Current Condition History of Current Condition Current Complaints L achilles and heel pain History of Current Condition Pt presents w/L achilles pain and heel pain onset after lifting a hot tub 5 -6 months ago. Pt has hx of R achilles rupture and repair and L fibular break and ligament sprain lat as teenager, L MT 1 -2 avulsion fx, soleus tear x2 (in his 20s and another time 6-7 years ago), another injury after son running into achilles w/shopping cart all at different points in his life. He has been walking around to help his brother the past couple weeks and has in the past week noticed L calf pain too. Certain shoes like flat shoes bother it. 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 It was intermittent until 3 weeks ago and then after taking dog for hike in snow and it really inc to be more frequent. Hx of LBP that hasn't worsened w/lift. Has not seen a manager clinical services. No other treatment. Denies numbness/tingling and no pian in upper leg. Pt has hx of also tearing HS mult times B. On L side occ, for long bikes it does inc pain. prior to lifting hot tub, was having pain in achilles but very intermittent mostly w/specific shoes. Treatment Goals Patient/Caregiver Goals get back to walking, be able to work without pain, be able hike, run and do stairs PT-OP-C Subjective Start: 06/27/23 10:10 Freq: Status: Active Protocol: Document 06/30/23 14:32 [facility] (Rec: 06/30/23 15:33 [facility] [id number]) OP-PT Subjective Patient Comments Patient Comments pt reports calf is better. Achilles is most painful lat PT-OP-D Balance Start: 06/27/23 10:10 Freq: Status: Active Protocol: Document 06/27/23 13:00 [facility] (Rec: 06/27/23 13:55 [facility] [id number]) Balance Tests Single Limb Standing Single Limb- Right >30 sec Single Limb- Left 8 sec w/pain PT-OP-F Manual Assessment Start: 06/27/23 10:10 Freq: Status: Active Protocol: Document 06/27/23 13:00 [facility] (Rec: 06/27/23 [facility]55 [id number] Manual Assessments Soft Tissue Assessment Soft Tissue Mobility Assessment tenderness to achilles and calf PT-OP-G Mobility & Gait Start: 06/27/23 10:10 Freq: Status: Active Protocol: Document 06/27/23 13:00 [facility] (Rec: 06/27/23 13:55 [id number] OP Gait Assessment Comments Gait Comments Pt has dec stance time on LLE w/slower gait and dec LLE pusho ff PT-OP-K Range of Motion Start: 06/27/23 10:10 Freq: Status: Active Protocol: Document 06/27/23 13:00 [facility] (Rec: 06/27/23 13:55 [facility] [id number]) Ankle and Foot Goniometric Range of Motion Ankle and Foot Right Active Dorsiflexion with Knee Flexed 2 Dorsiflexion with Knee Extended 4 Plantarflexion 51 Inversion 38 Eversion 23 Comments lacking DF to neutral in knee ext position Left Active Dorsiflexion with Knee Flexed 1 Dorsiflexion with Knee Extended 8 Plantarflexion 57 Inversion 34 Eversion 23 Comments lacking DF to neutral in both posiitons; pain w/DF & inversion PT-OP-L Special Tests Start: 06/27/23 10:10 Freq: Status: Active Protocol: Document 06/27/23 13:00 [facility] (Rec: 06/27/23 13:55 [facility] [id number]) Special Tests Lumbar Spine Special Tests Slump Test Results positive L PT-OP-M Strength Start: 06/27/23 10:10 Freq: Status: Active Protocol: Document 06/27/23 13:00 [facility] (Rec: 06/27/23 13:55 [facility] [id number]) Hip Strength Hip Manual Muscle Testing Right Flexion (L2) 3+ Fair+ Extension (S1) 3+ Fair+ External Rotation 5 Normal Internal Rotation 5 Normal Left Flexion (L2) 3+ Fair+ Extension (S1) 3+ Fair+ Abduction 4+ Good+ External Rotation 4- Good- Internal Rotation 5 Normal Comments pain ER; HS discomfort w/ext Knee Strength Knee Manual Muscle Testing Right Flexion (S2) 5 Normal Extension (L3) 5 Normal Left Flexion (S2) 4 Good Extension (L3) 5 Normal Ankle/Foot Strength Ankle and Foot Manual Muscle Testing Right Dorsiflexion (L4) 5 Normal Plantarflexion (S1) 5 Normal Inversion 5 Normal Eversion (S1) 5 Normal Comments 20 heel raises Left Dorsiflexion (L4) 4- Good- Plantarflexion (S1) 2+ Poor+ Inversion 4+ Good+ Eversion (S1) 5 Normal Comments pain DF and PF; unable to do heel raise Toe Strength Toe Manual Muscle Testing Right 2nd Toe Flexion 5 Normal Extension 5 Normal Comments toes 2-5 Left 2nd Toe Flexion 4 Good Extension 5 Normal Comments toes 2-5; pain w/flex Right Great Toe Flexion 4 Good Extension 4 Good Left Great Toe Flexion 5 Normal Extension 4 Good Comments pain w/ext PT-OP-Q Treatments Start: 06/27/23 10:10 Freq: Status: Active Protocol: Document 06/30/23 14:32 [facility] (Rec: 06/30/23 15:33 [facility] [id number]) Therapeutic Exercises Standing Exercises knee flex Standing Exercise Name for DF inc Side bilateral Reps/Minutes 10 Comments comfortable range Manual Therapy Treatment Soft Tissue Mobilization calf Body Location gastroc and soleus Mobilization Type Rolling Body Position Standing Comments w/knee flex Joint Mobilizations tibfib Joint distal tib AP FM talus Joint med FM calcaneus Joint lat FM Taping KT Type of Tape Kinesio Tape Comments 1. I strip to post calf and achilles that turns to fan to foot 2. Y strip for calf starting at heel 3. I strip across achilles PT-OP-R Modalities Start: 06/27/23 10:10 Freq: Status: Active Protocol: Document 06/30/23 14:32 [facility] (Rec: 06/30/23 15:33 [facility] [id number]) Infrared Treatment Treatment L ankle Program or Protocal chronic mod tendon Comments lat & med achilles, post achilles, post heel x5min total PT-OP-T Assessment and Plan Start: 06/27/23 10:10 Freq: Status: Active Protocol: Document 06/30/23 14:32 [facility] (Rec: 06/30/23 15:33 [facility] [id number]) Physical Therapy Assessment Goals activity Short Term Goal (STG) Pt will be able to go for short (1 mile) flat walks and stand on bike when biking w/o inc pain greater than 2/10 STG Duration 08/11/23 Mcfp Goal (LTG) Pt will be able to hike on uneven terrain and run w/o inc pain LTG Duration 09/19/23 balance Short Term Goal (STG) Pt will be able to do 15 sec SLS on LLE w/o inc pain. STG Duration 08/15/23 Mcfp Goal (LTG) Pt will be able to do 30 sec SLS on LLE w/o inc pain. LTG Duration 09/19/23 strength Short Term Goal (STG) Pt will be indep w/HEP STG Duration 08/10 Mcfp Goal (LTG) Pt will score at least 4+/5 on MMT B LEs to show improved strength and stability to allow return to activity w/o inc pain LTG Duration 09/19/23 LEFS Impairment 60/80 Short Term Goal (STG) Pt will improve score to at least 70/80 to show improved functional ability. STG Duration 08/15/23 Mcfp Goal (LTG) Pt will improve score to at least 78/80 to show improved functional ability. LTG Duration 09/19/23 Assessment Summary Assessment Pt is tolerating more passive DF but still not to neutral. pain is centralized mostly at lat achilles insertion today w /activities that stress his achilles. He cont to have significant calf tighness likely affecting pain. Physical Therapy Plan Frequency and Duration Frequency of Treatment 1-3x/wk Duration of treatment (weeks) 12 Plan of Care Start Date 06/27/23 Plan of Care End Date 09/19/23 Next Visit Focus/Plan Next Note Type Treatment Note Next Visit Plan tape achilles manual to calf and ankle mobility US to achilles laser to achilles review and advance exercises: tband PF ,soleus strength seated, inversion tband
--- NOTE | 2023-07-12 12:19 | PT.OTN ---
Current Diagnoses Difficulty in walking, not elsewhere classified (07/12/23) Weakness (07/12/23) Strain of left Achilles tendon, subsequent encounter (07/12/23) Physical Therapy Treatment Note PT-OP-A Visit Information Start: 06/27/23 10:10 Freq: Status: Active Protocol: Document 07/12/23 11:20 [facility] (Rec: 07/12/23 12:19 [facility] [id number]) Out-Patient Physical Therapy Visit Information Visit Information Visit Type Treatment Note Visit Start Time 11:20 Visit Stop Time 12:02 Visit Number 09/12 Number of MANAGER LEGAL Visits 0 PT-OP-B Current Condition Start: 06/27/23 10:10 Freq: Status: Active Protocol: Document 06/27/23 13:00 [facility] (Rec: 06/27/23 13:55 [facility] [id number]) Current Condition History of Current Condition Current Complaints L achilles and heel pain History of Current Condition Pt presents w/L achilles pain and heel pain onset after lifting a hot tub 5 -6 months ago. Pt has hx of R achilles rupture and repair and L fibular break and ligament sprain lat as teenager, L MT 1 -2 avulsion fx, soleus tear x2 (in his 20s and another time 6-7 years ago), another injury after son running into achilles w/shopping cart all at different points in his life. He has been walking around to help his brother the past couple weeks and has in the past week noticed L calf pain too. Certain shoes like flat shoes bother it. 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 It was intermittent until 3 weeks ago and then after taking dog for hike in snow and it really inc to be more frequent. Hx of LBP that hasn't worsened w/lift. Has not seen a motion picture commentator. No other treatment. Denies numbness/tingling and no pian in upper leg. Pt has hx of also tearing HS mult times B. On L side occ, for long bikes it does inc pain. prior to lifting hot tub, was having pain in achilles but very intermittent mostly w/specific shoes. Treatment Goals Patient/Caregiver Goals get back to walking, be able to work without pain, be able hike, run and do stairs PT-OP-C Subjective Start: 06/27/23 10:10 Freq: Status: Active Protocol: Document 07/12/23 11:20 [facility] (Rec: 07/12/23 12:19 [facility] [id number]) OP-PT Subjective Patient Comments Patient Comments pt reports found a beter way to press the break to take some pressure off foot. Feels a little better and less like he is limping PT-OP-D Balance Start: 06/27/23 10:10 Freq: Status: Active Protocol: Document 06/27/23 13:00 [facility] (Rec: 06/27/23 13:55 [facility] [id number]) Balance Tests Single Limb Standing Single Limb- Right >30 sec Single Limb- Left 8 sec w/pain PT-OP-F Manual Assessment Start: 06/27/23 10:10 Freq: Status: Active Protocol: Document 06/27/23 13:00 [facility] (Rec: 06/27/23 13:55 [facility] [id number]) Manual Assessments Soft Tissue Assessment Soft Tissue Mobility Assessment tenderness to achilles and calf PT-OP-G Mobility & Gait Start: 06/27/23 10:10 Freq: Status: Active Protocol: Document 06/27/23 13:00 [facility] (Rec: 06/27/23 13:55 [facility] [id number]) OP Gait Assessment Comments Gait Comments Pt has dec stance time on LLE w/slower gait and dec LLE pusho ff PT-OP-K Range of Motion Start: 06/27/23 10:10 Freq: Status: Active Protocol: Document 06/27/23 13:00 [facility] (Rec: 06/27/23 13:55 [facility] [id number]) Ankle and Foot Goniometric Range of Motion Ankle and Foot Right Active Dorsiflexion with Knee Flexed 2 Dorsiflexion with Knee Extended 4 Plantarflexion 51 Inversion 38 Eversion 23 Comments lacking DF to neutral in knee ext position Left Active Dorsiflexion with Knee Flexed 1 Dorsiflexion with Knee Extended 8 Plantarflexion 57 Inversion 34 Eversion 23 Comments lacking DF to neutral in both posiitons; pain w/DF & inversion PT-OP-L Special Tests Start: 06/27/23 10:10 Freq: Status: Active Protocol: Document 06/27/23 13:00 [facility] (Rec: 06/27/23 13:55 [facility] [id number]) Special Tests Lumbar Spine Special Tests Slump Test Results positive L PT-OP-M Strength Start: 06/27/23 10:10 Freq: Status: Active Protocol: Document 06/27/23 13:00 [facility] (Rec: 06/27/23 13:55 [facility] [id number]) Hip Strength Hip Manual Muscle Testing Right Flexion (L2) 3+ Fair+ Extension (S1) 3+ Fair+ External Rotation 5 Normal Internal Rotation 5 Normal Left Flexion (L2) 3+ Fair+ Extension (S1) 3+ Fair+ Abduction 4+ Good+ External Rotation 4- Good- Internal Rotation 5 Normal Comments pain ER; HS discomfort w/ext Knee Strength Knee Manual Muscle Testing Right Flexion (S2) 5 Normal Extension (L3) 5 Normal Left Flexion (S2) 4 Good Extension (L3) 5 Normal Ankle/Foot Strength Ankle and Foot Manual Muscle Testing Right Dorsiflexion (L4) 5 Normal Plantarflexion (S1) 5 Normal Inversion 5 Normal Eversion (S1) 5 Normal Comments 20 heel raises Left Dorsiflexion (L4) 4- Good- Plantarflexion (S1) 2+ Poor+ Inversion 4+ Good+ Eversion (S1) 5 Normal Comments pain DF and PF; unable to do heel raise Toe Strength Toe Manual Muscle Testing Right 2nd Toe Flexion 5 Normal Extension 5 Normal Comments toes 2-5 Left 2nd Toe Flexion 4 Good Extension 5 Normal Comments toes 2-5; pain w/flex Right Great Toe Flexion 4 Good Extension 4 Good Left Great Toe Flexion 5 Normal Extension 4 Good Comments pain w/ext PT-OP-Q Treatments Start: 06/27/23 10:10 Freq: Status: Active Protocol: Document 07/12/23 11:20 [facility] (Rec: 07/12/23 12:19 [facility] [id number]) Therapeutic Exercises Sitting Exercises toes Sitting Exercise Name DF all toes, DF of big toe and little toes Side left stretch Sitting Exercise Name plantar fasica Side left Reps/Minutes 30 sec DF Side left Equipment Used L3 Reps/Minutes 15 Standing Exercises stretch Standing Exercise Name 1.gastroc 2. soleus Side left Reps/Minutes 30 sec ea Comments fwd lean, cues foot position Manual Therapy Treatment Soft Tissue Mobilization plantar fascia Body Location L Mobilization Type Rolling Intensity/Depth Moderate Body Position Supine Comments w/AAROM DF and big toe ext calf Body Location gastroc and soleus Mobilization Type Rolling Body Position Supine Joint Mobilizations cuboid Joint L lat glide FM cuneiform Joint L med glide FM 1-2 calcaneus Comments distraction PT-OP-R Modalities Start: 06/27/23 10:10 Freq: Status: Active Protocol: Document 07/12/23 11:20 [facility] (Rec: 07/12/23 12:19 [facility] [id number]) Ultrasound Therapy Treatment achilles Patient Position Sidelying Coupling Medium Ultrasound Gel Applicator Size (cm2) 2 Frequency Setting (mHz) 1 Mode Setting Pulsed Duty Cycle 50% Intensity Setting (w/cm2) 1 PT-OP-T Assessment and Plan Start: 06/27/23 10:10 Freq: Status: Active Protocol: Document 07/12/23 11:20 [facility] (Rec: 07/12/23 12:19 [facility] [id number]) Physical Therapy Assessment Goals activity Short Term Goal (STG) Pt will be able to go for short (1 mile) flat walks and stand on bike when biking w/o inc pain greater than 2/10 STG Duration 08/11/23 Snf Goal (LTG) Pt will be able to hike on uneven terrain and run w/o inc pain LTG Duration 09/19/23 balance Short Term Goal (STG) Pt will be able to do 15 sec SLS on LLE w/o inc pain. STG Duration 08/15/23 Band And Cuff Cutter Goal (LTG) Pt will be able to do 30 sec SLS on LLE w/o inc pain. LTG Duration 09/19/23 strength Short Term Goal (STG) Pt will be indep w/HEP STG Duration 08/10 Snf Goal (LTG) Pt will score at least 4+/5 on MMT B LEs to show improved strength and stability to allow return to activity w/o inc pain LTG Duration 09/19/23 LEFS Impairment 60/80 Short Term Goal (STG) Pt will improve score to at least 70/80 to show improved functional ability. STG Duration 08/15/23 Band And Cuff Cutter Goal (LTG) Pt will improve score to at least 78/80 to show improved functional ability. LTG Duration 09/19/23 Assessment Summary Assessment Pt cont to tolerate further DF and allowed starting resisted DF today. Had to be edu re: painfree range with these excercises. He did well iwth exercises w/o c/o inc pain Physical Therapy Plan Frequency and Duration Frequency of Treatment 1-3x/wk Duration of treatment (weeks) 12 Plan of Care Start Date 06/27/23 Plan of Care End Date 09/19/23 Next Visit Focus/Plan Next Note Type Treatment Note Next Visit Plan tape achilles manual to calf and ankle mobility US to achilles laser to achilles review and advance exercises: tband PF ,soleus strength seated, inversion tband
--- NOTE | 2023-07-19 14:36 | PT.OTN ---
Current Diagnoses Difficulty in walking, not elsewhere classified (07/19/23) Weakness (07/19/23) Strain of left Achilles tendon, subsequent encounter (07/19/23) Physical Therapy Treatment Note PT-OP-A Visit Information Start: 06/27/23 10:10 Freq: Status: Active Protocol: Document 07/19/23 13:46 [facility] (Rec: 07/19/23 14:36 [facility] [id number]) Out-Patient Physical Therapy Visit Information Visit Information Visit Type Treatment Note Visit Start Time 13:46 Visit Stop Time 14:26 Visit Number 10/12 Number of [employer] Visits 0 PT-OP-B Current Condition Start: 06/27/23 10:10 Freq: Status: Active Protocol: Document 06/27/23 13:00 [facility] (Rec: 06/27/23 13:55 [facility] [id number]) Current Condition History of Current Condition Current Complaints L achilles and heel pain History of Current Condition Pt presents w/L achilles pain and heel pain onset after lifting a hot tub 5 -6 months ago. Pt has hx of R achilles rupture and repair and L fibular break and ligament sprain lat as teenager, L MT 1 -2 avulsion fx, soleus tear x2 (in his 20s and another time 6-7 years ago), another injury after son running into achilles w/shopping cart all at different points in his life. He has been walking around to help his brother the past couple weeks and has in the past week noticed L calf pain too. Certain shoes like flat shoes bother it. 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 It was intermittent until 3 weeks ago and then after taking dog for hike in snow and it really inc to be more frequent. Hx of LBP that hasn't worsened w/lift. Has not seen a concessionist. No other treatment. Denies numbness/tingling and no pian in upper leg. Pt has hx of also tearing HS mult times B. On L side occ, for long bikes it does inc pain. prior to lifting hot tub, was having pain in achilles but very intermittent mostly w/specific shoes. Treatment Goals Patient/Caregiver Goals get back to walking, be able to work without pain, be able hike, run and do stairs PT-OP-C Subjective Start: 06/27/23 10:10 Freq: Status: Active Protocol: Document 07/19/23 13:46 [facility] (Rec: 07/19/23 14:36 [facility] [id number]) OP-PT Subjective Patient Comments Patient Comments Pt reports he feels like the insoles helped. PT-OP-D Balance Start: 06/27/23 10:10 Freq: Status: Active Protocol: Document 06/27/23 13:00 [facility] (Rec: 06/27/23 13:55 [facility] [id number]) Balance Tests Single Limb Standing Single Limb- Right >30 sec Single Limb- Left 8 sec w/pain PT-OP-F Manual Assessment Start: 06/27/23 10:10 Freq: Status: Active Protocol: Document 06/27/23 13:00 [facility] (Rec: 06/27/23 13:55 [id number] Manual Assessments Soft Tissue Assessment Soft Tissue Mobility Assessment tenderness to achilles and calf PT-OP-G Mobility & Gait Start: 06/27/23 10:10 Freq: Status: Active Protocol: Document 06/27/23 13:00 [facility] (Rec: 06/27/23 13:55 [id number] OP Gait Assessment Comments Gait Comments Pt has dec stance time on LLE w/slower gait and dec LLE pusho ff PT-OP-K Range of Motion Start: 06/27/23 10:10 Freq: Status: Active Protocol: Document 06/27/23 13:00 [facility] (Rec: 06/27/23 13:55 [facility] [id number]) Ankle and Foot Goniometric Range of Motion Ankle and Foot Right Active Dorsiflexion with Knee Flexed 2 Dorsiflexion with Knee Extended 4 Plantarflexion 51 Inversion 38 Eversion 23 Comments lacking DF to neutral in knee ext position Left Active Dorsiflexion with Knee Flexed 1 Dorsiflexion with Knee Extended 8 Plantarflexion 57 Inversion 34 Eversion 23 Comments lacking DF to neutral in both posiitons; pain w/DF & inversion PT-OP-L Special Tests Start: 06/27/23 10:10 Freq: Status: Active Protocol: Document 06/27/23 13:00 [facility] (Rec: 06/27/23 13:55 [facility] [id number]) Special Tests Lumbar Spine Special Tests Slump Test Results positive L PT-OP-M Strength Start: 06/27/23 10:10 Freq: Status: Active Protocol: Document 06/27/23 13:00 [facility] (Rec: 06/27/23 13:55 [facility] [id number]) Hip Strength Hip Manual Muscle Testing Right Flexion (L2) 3+ Fair+ Extension (S1) 3+ Fair+ External Rotation 5 Normal Internal Rotation 5 Normal Left Flexion (L2) 3+ Fair+ Extension (S1) 3+ Fair+ Abduction 4+ Good+ External Rotation 4- Good- Internal Rotation 5 Normal Comments pain ER; HS discomfort w/ext Knee Strength Knee Manual Muscle Testing Right Flexion (S2) 5 Normal Extension (L3) 5 Normal Left Flexion (S2) 4 Good Extension (L3) 5 Normal Ankle/Foot Strength Ankle and Foot Manual Muscle Testing Right Dorsiflexion (L4) 5 Normal Plantarflexion (S1) 5 Normal Inversion 5 Normal Eversion (S1) 5 Normal Comments 20 heel raises Left Dorsiflexion (L4) 4- Good- Plantarflexion (S1) 2+ Poor+ Inversion 4+ Good+ Eversion (S1) 5 Normal Comments pain DF and PF; unable to do heel raise Toe Strength Toe Manual Muscle Testing Right 2nd Toe Flexion 5 Normal Extension 5 Normal Comments toes 2-5 Left 2nd Toe Flexion 4 Good Extension 5 Normal Comments toes 2-5; pain w/flex Right Great Toe Flexion 4 Good Extension 4 Good Left Great Toe Flexion 5 Normal Extension 4 Good Comments pain w/ext PT-OP-Q Treatments Start: 06/27/23 10:10 Freq: Status: Active Protocol: Document 07/19/23 13:46 [facility] (Rec: 07/19/23 14:36 [facility] [id number]) Gym Equipment Shuttle Recovery heel raise Details L Resistance 12# Reps/Time 20 Therapeutic Exercises Sitting Exercises DF Side left Equipment Used 7# Reps/Minutes 20 PF Sitting Exercise Name w/10# on knee Side left Equipment Used 2 in under forefoot Reps/Minutes 20 Standing Exercises PF Standing Exercise Name w/25-50% wt LLE Side bilateral Reps/Minutes 15 DF Standing Exercise Name back at wall Side bilateral Reps/Minutes 20 Manual Therapy Treatment Soft Tissue Mobilization peroneals Body Location L Mobilization Type Rolling plantar fascia Body Location L Mobilization Type Rolling Intensity/Depth Moderate Body Position Supine Comments w/AAROM DF and big toe ext calf Body Location gastroc and soleus Mobilization Type Rolling Body Position Supine Joint Mobilizations cuboid Joint L lat glide FM tibfib Joint PA FM fib and sup fib talus Joint med FM PT-OP-R Modalities Start: 06/27/23 10:10 Freq: Status: Active Protocol: Document 07/12/23 11:20 [facility] (Rec: 07/12/23 12:19 [facility] [id number]) Ultrasound Therapy Treatment achilles Patient Position Sidelying Coupling Medium Ultrasound Gel Applicator Size (cm2) 2 Frequency Setting (mHz) 1 Mode Setting Pulsed Duty Cycle 50% Intensity Setting (w/cm2) 1 PT-OP-T Assessment and Plan Start: 06/27/23 10:10 Freq: Status: Active Protocol: Document 07/19/23 13:46 [facility] (Rec: 07/19/23 14:36 [facility] [id number]) Physical Therapy Assessment Goals activity Short Term Goal (STG) Pt will be able to go for short (1 mile) flat walks and stand on bike when biking w/o inc pain greater than 2/10 STG Duration 08/11/23 Retirement Goal (LTG) Pt will be able to hike on uneven terrain and run w/o inc pain LTG Duration 09/19/23 balance Short Term Goal (STG) Pt will be able to do 15 sec SLS on LLE w/o inc pain. STG Duration 08/15/23 Retirement Goal (LTG) Pt will be able to do 30 sec SLS on LLE w/o inc pain. LTG Duration 09/19/23 strength Short Term Goal (STG) Pt will be indep w/HEP STG Duration 08/10 Swim Instructor Goal (LTG) Pt will score at least 4+/5 on MMT B LEs to show improved strength and stability to allow return to activity w/o inc pain LTG Duration 09/19/23 LEFS Impairment 60/80 Short Term Goal (STG) Pt will improve score to at least 70/80 to show improved functional ability. STG Duration 08/15/23 Retirement Goal (LTG) Pt will improve score to at least 78/80 to show improved functional ability. LTG Duration 09/19/23 Assessment Summary Assessment Pt cont to tolerate inc load onto ankle w/inc resistance used today and inc ROM. He cont to advance w/strength and improved DF further w/manual. Tenderness noted at inf aspect of achilles and lat on calcaneus today. Improving gait mechanics Physical Therapy Plan Frequency and Duration Frequency of Treatment 1-3x/wk Duration of treatment (weeks) 12 Plan of Care Start Date 06/27/23 Plan of Care End Date 09/19/23 Next Visit Focus/Plan Next Note Type Treatment Note Next Visit Plan manual to calf and ankle mobility; cont to advance ankle stability and strength
--- NOTE | 2023-07-25 18:28 | PT.OTN ---
Current Diagnoses Difficulty in walking, not elsewhere classified (07/25/23) Weakness (07/25/23) Strain of left Achilles tendon, subsequent encounter (07/25/23) Physical Therapy Treatment Note PT-OP-A Visit Information Start: 06/27/23 10:10 Freq: Status: Active Protocol: Document 07/25/23 12:59 [facility] (Rec: 07/25/23 13:12 [facility] [id number]) Out-Patient Physical Therapy Visit Information Visit Information Visit Type Treatment Note Visit Start Time 13:04 Visit Stop Time 13:46 Visit Number 11/12 Number of MILLER [employer] MILL Visits 0 PT-OP-B Current Condition Start: 06/27/23 10:10 Freq: Status: Active Protocol: Document 06/27/23 13:00 [facility] (Rec: 06/27/23 13:55 [facility] [id number]) Current Condition History of Current Condition Current Complaints L achilles and heel pain History of Current Condition Pt presents w/L achilles pain and heel pain onset after lifting a hot tub 5 -6 months ago. Pt has hx of R achilles rupture and repair and L fibular break and ligament sprain lat as teenager, L MT 1 -2 avulsion fx, soleus tear x2 (in his 20s and another time 6-7 years ago), another injury after son running into achilles w/shopping cart all at different points in his life. He has been walking around to help his brother the past couple weeks and has in the past week noticed L calf pain too. Certain shoes like flat shoes bother it. 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 It was intermittent until 3 weeks ago and then after taking dog for hike in snow and it really inc to be more frequent. Hx of LBP that hasn't worsened w/lift. Has not seen a restaurant service manager. No other treatment. Denies numbness/tingling and no pian in upper leg. Pt has hx of also tearing HS mult times B. On L side occ, for long bikes it does inc pain. prior to lifting hot tub, was having pain in achilles but very intermittent mostly w/specific shoes. Treatment Goals Patient/Caregiver Goals get back to walking, be able to work without pain, be able hike, run and do stairs PT-OP-C Subjective Start: 06/27/23 10:10 Freq: Status: Active Protocol: Document 07/25/23 12:59 [facility] (Rec: 07/25/23 13:12 [facility] [id number]) OP-PT Subjective Patient Comments Patient Comments pt reports had to walk briskly this weekend and it inc pain. Feels like he is plateauing and limping more again today Patient Reported Progress Same PT-OP-D Balance Start: 06/27/23 10:10 Freq: Status: Active Protocol: Document 06/27/23 13:00 [facility] (Rec: 06/27/23 13:55 [id number] Balance Tests Single Limb Standing Single Limb- Right >30 sec Single Limb- Left 8 sec w/pain PT-OP-F Manual Assessment Start: 06/27/23 10:10 Freq: Status: Active Protocol: Document 06/27/23 13:00 [facility] (Rec: 06/27/23 13:55 [facility] [id number]) Manual Assessments Soft Tissue Assessment Soft Tissue Mobility Assessment tenderness to achilles and calf PT-OP-G Mobility & Gait Start: 06/27/23 10:10 Freq: Status: Active Protocol: Document 06/27/23 13:00 [facility] (Rec: 06/27/23 13:55 [facility] [id number]) OP Gait Assessment Comments Gait Comments Pt has dec stance time on LLE w/slower gait and dec LLE pusho ff PT-OP-K Range of Motion Start: 06/27/23 10:10 Freq: Status: Active Protocol: Document 07/25/23 12:59 [facility] (Rec: 07/25/23 13:20 [facility] [id number]) Ankle and Foot Goniometric Range of Motion Ankle and Foot Left Active Dorsiflexion with Knee Flexed 0 Dorsiflexion with Knee Extended 3 Plantarflexion 63 Inversion 37 Eversion 27 Comments lacking DF to neutral in both posiitons; pain w/DF & inversion PT-OP-L Special Tests Start: 06/27/23 10:10 Freq: Status: Active Protocol: Document 06/27/23 13:00 [facility] (Rec: 06/27/23 13:55 [facility] [id number]) Special Tests Lumbar Spine Special Tests Slump Test Results positive L PT-OP-M Strength Start: 06/27/23 10:10 Freq: Status: Active Protocol: Document 07/25/23 12:59 [facility] (Rec: 07/25/23 13:20 [facility] [id number]) Hip Strength Hip Manual Muscle Testing Right Flexion (L2) 5 Normal Extension (S1) 4- Good- Adduction 5 Normal External Rotation 5 Normal Internal Rotation 5 Normal Left Flexion (L2) 5 Normal Extension (S1) 4+ Good+ Abduction 4+ Good+ External Rotation 4+ Good+ Internal Rotation 5 Normal Knee Strength Knee Manual Muscle Testing Right Flexion (S2) 5 Normal Extension (L3) 5 Normal Left Flexion (S2) 5 Normal Extension (L3) 5 Normal Ankle/Foot Strength Ankle and Foot Manual Muscle Testing Right Dorsiflexion (L4) 5 Normal Plantarflexion (S1) 5 Normal Inversion 5 Normal Eversion (S1) 5 Normal Comments 20 heel raises Left Dorsiflexion (L4) 5 Normal Plantarflexion (S1) 2+ Poor+ Inversion 5 Normal Eversion (S1) 5 Normal Comments pain eversion and PF; unable to do heel raise SL PT-OP-Q Treatments Start: 06/27/23 10:10 Freq: Status: Active Protocol: Document 07/25/23 12:59 [facility] (Rec: 07/25/23 13:12 [facility] [id number]) Therapeutic Exercises Sitting Exercises AROM Sitting Exercise Name all directions ankle Side left Standing Exercises SLS Side left squat Side bilateral PF Standing Exercise Name w/25% wt LLE Side bilateral Reps/Minutes 15 DF Standing Exercise Name back at wall Side bilateral Reps/Minutes 20 Other Exercises isometrics Other Exercise Name BLE MMT Manual Therapy Treatment Soft Tissue Mobilization calf Body Location gastroc and soleus & achilles Mobilization Type Rolling Body Position Prone Comments w/ APS Joint Mobilizations tibfib Joint AP tib FM prone calcaneus Joint R distraction PT-OP-R Modalities Start: 06/27/23 10:10 Freq: Status: Active Protocol: Document 07/25/23 12:59 [facility] (Rec: 07/25/23 18:22 [facility] [id number]) Ultrasound Therapy Treatment achilles Patient Position Sidelying Coupling Medium Ultrasound Gel Applicator Size (cm2) 2 Frequency Setting (mHz) 1 Mode Setting Pulsed Duty Cycle 50% Intensity Setting (w/cm2) 1 PT-OP-T Assessment and Plan Start: 06/27/23 10:10 Freq: Status: Active Protocol: Document 07/25/23 12:59 [facility] (Rec: 07/25/23 13:12 [facility] [id number]) Physical Therapy Assessment Goals activity Short Term Goal (STG) Pt will be able to go for short (1 mile) flat walks and stand on bike when biking w/o inc pain greater than 2/10 07/24-pain 2-3/10 w/standing on bike; .75 mile walks w/slow walking 2-07/23 STG Duration 08/11/23 Longterm Goal (LTG) Pt will be able to hike on uneven terrain and run w/o inc pain LTG Duration 09/19/23 balance Short Term Goal (STG) Pt will be able to do 15 sec SLS on LLE w/o inc pain. 07/24- 30 sec but pain when inverts STG Duration 08/15/23 Senior Management Consultant Goal (LTG) Pt will be able to do 30 sec SLS on LLE w/o inc pain. LTG Duration 09/19/23 strength Short Term Goal (STG) Pt will be indep w/HEP STG Duration achieved advancing as able Longterm Goal (LTG) Pt will score at least 4+/5 on MMT B LEs to show improved strength and stability to allow return to activity w/o inc pain 07/24-slowly imroving LTG Duration 09/19/23 LEFS Impairment 60/80 Short Term Goal (STG) Pt will improve score to at least 70/80 to show improved functional ability. STG Duration 08/15/23 Senior Management Consultant Goal (LTG) Pt will improve score to at least 78/80 to show improved functional ability. LTG Duration 09/19/23 Assessment Summary Assessment Pt is advancing, but slowly w/ PT and still is significantly limited from activities he enjoys and has difficulty walking quickly when needed at work. He did make progress w/ ROM but is still limited w/DF ability d/t pain. He has been seen for 1 month at this time w/gradual progress, but may benefit from further imaging or intervention at this time and was encouraged to follow up w/his primary doctor. Cont PT to work on ankle strength and mobility Physical Therapy Plan Next Visit Focus/Plan Next Note Type Treatment Note Next Visit Plan manual to calf and ankle mobility; cont to advance ankle stability and strength as able- start to trial some uneven surfaces B
--- NOTE | 2023-07-28 10:32 | PT.OTN ---
Current Diagnoses Difficulty in walking, not elsewhere classified (07/28/23) Weakness (07/28/23) Strain of left Achilles tendon, subsequent encounter (07/28/23) Physical Therapy Treatment Note PT-OP-A Visit Information Start: 06/27/23 10:10 Freq: Status: Active Protocol: Document 07/28/23 09:53 SP (Rec: 07/28/23 10:35 SP [id number]) Out-Patient Physical Therapy Visit Information Visit Information Visit Type Treatment Note Visit Start Time 09:53 Visit Stop Time 10:32 Visit Number 12/12 Number of COMMERCIAL APPRAISER Visits 1 PT-OP-B Current Condition Start: 06/27/23 10:10 Freq: Status: Active Protocol: Document 06/27/23 13:00 LR (Rec: 06/27/23 13:55 [facility] [id number]) Current Condition History of Current Condition Current Complaints L achilles and heel pain History of Current Condition Pt presents w/L achilles pain and heel pain onset after lifting a hot tub 5 -6 months ago. Pt has hx of R achilles rupture and repair and L fibular break and ligament sprain lat as teenager, L MT 1 -2 avulsion fx, soleus tear x2 (in his 20s and another time 6-7 years ago), another injury after son running into achilles w/shopping cart all at different points in his life. He has been walking around to help his brother the past couple weeks and has in the past week noticed L calf pain too. Certain shoes like flat shoes bother it. 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 It was intermittent until 3 weeks ago and then after taking dog for hike in snow and it really inc to be more frequent. Hx of LBP that hasn't worsened w/lift. Has not seen a sales planner. No other treatment. Denies numbness/tingling and no pian in upper leg. Pt has hx of also tearing HS mult times B. On L side occ, for long bikes it does inc pain. prior to lifting hot tub, was having pain in achilles but very intermittent mostly w/specific shoes. Treatment Goals Patient/Caregiver Goals get back to walking, be able to work without pain, be able hike, run and do stairs PT-OP-C Subjective Start: 06/27/23 10:10 Freq: Status: Active Protocol: Document 07/28/23 09:53 SP (Rec: 07/28/23 10:35 SP [id number]) OP-PT Subjective Patient Comments Patient Comments Pt reported still lacking push off L and pain, has been working on squat as last tx and resisted ankle HEP. PT-OP-D Balance Start: 06/27/23 10:10 Freq: Status: Active Protocol: Document 06/27/23 13:00 [facility] (Rec: 06/27/23 13:55 [facility] [id number]) Balance Tests Single Limb Standing Single Limb- Right >30 sec Single Limb- Left 8 sec w/pain PT-OP-F Manual Assessment Start: 06/27/23 10:10 Freq: Status: Active Protocol: Document 06/27/23 13:00 [facility] (Rec: 06/27/23 13:55 [facility] [id number]) Manual Assessments Soft Tissue Assessment Soft Tissue Mobility Assessment tenderness to achilles and calf PT-OP-G Mobility & Gait Start: 06/27/23 10:10 Freq: Status: Active Protocol: Document 06/27/23 13:00 [facility] (Rec: 06/27/23 13:55 [facility] [id number]) OP Gait Assessment Comments Gait Comments Pt has dec stance time on LLE w/slower gait and dec LLE pusho ff PT-OP-K Range of Motion Start: 06/27/23 10:10 Freq: Status: Active Protocol: Document 07/25/23 12:59 [facility] (Rec: 07/25/23 13:20 [facility] [id number]) Ankle and Foot Goniometric Range of Motion Ankle and Foot Left Active Dorsiflexion with Knee Flexed 0 Dorsiflexion with Knee Extended 3 Plantarflexion 63 Inversion 37 Eversion 27 Comments lacking DF to neutral in both posiitons; pain w/DF & inversion PT-OP-L Special Tests Start: 06/27/23 10:10 Freq: Status: Active Protocol: Document 06/27/23 13:00 [facility] (Rec: 06/27/23 13:55 [facility] [id number]) Special Tests Lumbar Spine Special Tests Slump Test Results positive L PT-OP-M Strength Start: 06/27/23 10:10 Freq: Status: Active Protocol: Document 07/25/23 12:59 [facility] (Rec: 07/25/23 13:20 [facility] [id number]) Hip Strength Hip Manual Muscle Testing Right Flexion (L2) 5 Normal Extension (S1) 4- Good- Adduction 5 Normal External Rotation 5 Normal Internal Rotation 5 Normal Left Flexion (L2) 5 Normal Extension (S1) 4+ Good+ Abduction 4+ Good+ External Rotation 4+ Good+ Internal Rotation 5 Normal Knee Strength Knee Manual Muscle Testing Right Flexion (S2) 5 Normal Extension (L3) 5 Normal Left Flexion (S2) 5 Normal Extension (L3) 5 Normal Ankle/Foot Strength Ankle and Foot Manual Muscle Testing Right Dorsiflexion (L4) 5 Normal Plantarflexion (S1) 5 Normal Inversion 5 Normal Eversion (S1) 5 Normal Comments 20 heel raises Left Dorsiflexion (L4) 5 Normal Plantarflexion (S1) 2+ Poor+ Inversion 5 Normal Eversion (S1) 5 Normal Comments pain eversion and PF; unable to do heel raise SL PT-OP-Q Treatments Start: 06/27/23 10:10 Freq: Status: Active Protocol: Document 07/28/23 09:53 SP (Rec: 07/28/23 10:35 SP [id number]) Therapeutic Exercises Supine Exercises n glide Supine Exercise Name sciatic supine- /c peroneal addition (IV/PF>DR/EV) Side left Equipment Used grasp behind thigh Reps/Minutes x10 Sitting Exercises EV/IV Sitting Exercise Name EV/IV, CW/CCW Side left Resistance 10# on forft Equipment Used BAPS #5 Reps/Minutes x20 DF Side left Resistance 10# Equipment Used BAPS #5 Reps/Minutes 20 PF Side left Resistance 10# Equipment Used BAPS #5 Reps/Minutes 20 Standing Exercises SLS Standing Exercise Name added star glides: R LE moving 12, 9, 6 o'clock Side left Reps/Minutes 3 positions x3 reps, 3 sets Comments cued encourage DF and level pelvis squat Side bilateral Equipment Used chair behind target, use mirror Reps/Minutes x8 reps Comments even WB wt shift L Gait Training Gait Activity wt shifts Description into RLE, LLE heel lift Comments mirror Manual Therapy Treatment Soft Tissue Mobilization peroneals Body Location L Mobilization Type Rolling Joint Mobilizations tibfib Joint AP tib FM prone talus Joint med FM calcaneus Joint R distraction Taping KT Type of Tape Kinesio Tape Comments 1. I strip to post calf and achilles that turns to fan to foot 2. Y strip for calf starting at heel 3. I strip across achilles PT-OP-R Modalities Start: 06/27/23 10:10 Freq: Status: Active Protocol: Document 07/25/23 12:59 LR (Rec: 07/25/23 18:22 [facility] [id number]) Ultrasound Therapy Treatment achilles Patient Position Sidelying Coupling Medium Ultrasound Gel Applicator Size (cm2) 2 Frequency Setting (mHz) 1 Mode Setting Pulsed Duty Cycle 50% Intensity Setting (w/cm2) 1 PT-OP-T Assessment and Plan Start: 06/27/23 10:10 Freq: Status: Active Protocol: Document 07/28/23 09:53 SP (Rec: 07/28/23 10:35 SP [id number]) Physical Therapy Assessment Goals activity Short Term Goal (STG) Pt will be able to go for short (1 mile) flat walks and stand on bike when biking w/o inc pain greater than 2/10 07/24-pain 2-3/10 w/standing on bike; .75 mile walks w/slow walking 2-3/10 STG Duration 08/11/23 Flight Engineer Instructor Goal (LTG) Pt will be able to hike on uneven terrain and run w/o inc pain LTG Duration 09/19/23 balance Short Term Goal (STG) Pt will be able to do 15 sec SLS on LLE w/o inc pain. 07/24- 30 sec but pain when inverts STG Duration 08/15/23 Flight Engineer Instructor Goal (LTG) Pt will be able to do 30 sec SLS on LLE w/o inc pain. LTG Duration 09/19/23 strength Short Term Goal (STG) Pt will be indep w/HEP STG Duration achieved advancing as able Flight Engineer Instructor Goal (LTG) Pt will score at least 4+/5 on MMT B LEs to show improved strength and stability to allow return to activity w/o inc pain 07/24-slowly imroving LTG Duration 09/19/23 LEFS Impairment 60/80 Short Term Goal (STG) Pt will improve score to at least 70/80 to show improved functional ability. STG Duration 08/15/23 Assisted Goal (LTG) Pt will improve score to at least 78/80 to show improved functional ability. LTG Duration 09/19/23 Assessment Summary Assessment Pt improved SLS stability and progress into DF ROM star glides. Cues for wt shift toe off LLE AROM, use mirror and even WB midline pelvis during squats. Physical Therapy Plan Frequency and Duration Frequency of Treatment 1-3x/wk Duration of treatment (weeks) 12 Plan of Care Start Date 06/27/23 Plan of Care End Date 09/19/23 Therapeutic Interventions Therapeutic Interventions Balance Training,Gait Training ,Home Exercise Program,Joint Mobilizations,Manual Therapy, Neuromuscular Re-education, Orthotic/Prosthetic Management ,Patient/Caregiver Education, Self-Care/Home Management,Soft Tissue Mobilization,Taping, Therapeutic Activities, Therapeutic Exercises Modalities Cold Pack/Ice Massage,Electric Stimulation,Hot Packs, Infrared Therapy,Iontophoresis ,Ultrasound Other Therapeutic Interventions dexamethasone Next Visit Focus/Plan Next Note Type Treatment Note Next Visit Plan manual to calf and ankle mobility; cont to advance ankle stability and strength as able- start to trial some uneven surfaces B
--- NOTE | 2023-10-17 13:45 | PT.OPDS ---
Current Diagnoses Difficulty in walking, not elsewhere classified (07/28/23) Weakness (07/28/23) Strain of left Achilles tendon, subsequent encounter (07/28/23) Visit Care Team Role Provider Type Willy Ahn MD Attending Provider Physician Family Provider Primary Care Provider Referring Provider Specialty: Family Practice Address: [address] [place] [address], [facility] Email: [email or web address] Visit Number Visit Number 12/12 Discharge Summary PT-OP-B Current Condition Start: 06/27/23 10:10 Freq: Status: Active Protocol: Document 06/27/23 13:00 [facility] (Rec: 06/27/23 13:55 [facility] [id number]) Current Condition History of Current Condition Current Complaints L achilles and heel pain History of Current Condition Pt presents w/L achilles pain and heel pain onset after lifting a hot tub 5 -6 months ago. Pt has hx of R achilles rupture and repair and L fibular break and ligament sprain lat as teenager, L MT 1 -2 avulsion fx, soleus tear x2 (in his 20s and another time 6-7 years ago), another injury after son running into achilles w/shopping cart all at different points in his life. He has been walking around to help his brother the past couple weeks and has in the past week noticed L calf pain too. Certain shoes like flat shoes bother it. 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 It was intermittent until 3 weeks ago and then after taking dog for hike in snow and it really inc to be more frequent. Hx of LBP that hasn't worsened w/lift. Has not seen a draw end hand. No other treatment. Denies numbness/tingling and no pian in upper leg. Pt has hx of also tearing HS mult times B. On L side occ, for long bikes it does inc pain. prior to lifting hot tub, was having pain in achilles but very intermittent mostly w/specific shoes. Treatment Goals Patient/Caregiver Goals get back to walking, be able to work without pain, be able hike, run and do stairs PT-OP-C Subjective Start: 06/27/23 10:10 Freq: Status: Active Protocol: Document 07/28/23 09:53 SP (Rec: 07/28/23 10:35 SP [id number]) OP-PT Subjective Patient Comments Patient Comments Pt reported still lacking push off L and pain, has been working on squat as last tx and resisted ankle HEP. PT-OP-D Balance Start: 06/27/23 10:10 Freq: Status: Active Protocol: Document 06/27/23 13:00 [facility] (Rec: 06/27/23 13:55 [facility] [id number]) Balance Tests Single Limb Standing Single Limb- Right >30 sec Single Limb- Left 8 sec w/pain PT-OP-F Manual Assessment Start: 06/27/23 10:10 Freq: Status: Active Protocol: Document 06/27/23 13:00 [facility] (Rec: 06/27/23 13:55 [facility] [id number]) Manual Assessments Soft Tissue Assessment Soft Tissue Mobility Assessment tenderness to achilles and calf PT-OP-G Mobility & Gait Start: 06/27/23 10:10 Freq: Status: Active Protocol: Document 06/27/23 13:00 [facility] (Rec: 06/27/23 13:55 [facility] [id number]) OP Gait Assessment Comments Gait Comments Pt has dec stance time on LLE w/slower gait and dec LLE pusho ff PT-OP-K Range of Motion Start: 06/27/23 10:10 Freq: Status: Active Protocol: Document 07/25/23 12:59 [facility] (Rec: 07/25/23 13:20 [facility] [id number]) Ankle and Foot Goniometric Range of Motion Ankle and Foot Left Active Dorsiflexion with Knee Flexed 0 Dorsiflexion with Knee Extended 3 Plantarflexion 63 Inversion 37 Eversion 27 Comments lacking DF to neutral in both posiitons; pain w/DF & inversion PT-OP-L Special Tests Start: 06/27/23 10:10 Freq: Status: Active Protocol: Document 06/27/23 13:00 [facility] (Rec: 06/27/23 13:55 [facility] [id number]) Special Tests Lumbar Spine Special Tests Slump Test Results positive L PT-OP-M Strength Start: 06/27/23 10:10 Freq: Status: Active Protocol: Document 07/25/23 12:59 [facility] (Rec: 07/25/23 13:20 [facility] [id number]) Hip Strength Hip Manual Muscle Testing Right Flexion (L2) 5 Normal Extension (S1) 4- Good- Adduction 5 Normal External Rotation 5 Normal Internal Rotation 5 Normal Left Flexion (L2) 5 Normal Extension (S1) 4+ Good+ Abduction 4+ Good+ External Rotation 4+ Good+ Internal Rotation 5 Normal Knee Strength Knee Manual Muscle Testing Right Flexion (S2) 5 Normal Extension (L3) 5 Normal Left Flexion (S2) 5 Normal Extension (L3) 5 Normal Ankle/Foot Strength Ankle and Foot Manual Muscle Testing Right Dorsiflexion (L4) 5 Normal Plantarflexion (S1) 5 Normal Inversion 5 Normal Eversion (S1) 5 Normal Comments 20 heel raises Left Dorsiflexion (L4) 5 Normal Plantarflexion (S1) 2+ Poor+ Inversion 5 Normal Eversion (S1) 5 Normal Comments pain eversion and PF; unable to do heel raise SL PT-OP-T Assessment and Plan Start: 06/27/23 10:10 Freq: Status: Active Protocol: Document 10/17/23 13:44 [facility] (Rec: 10/17/23 13:45 [facility] [id number]) Physical Therapy Assessment Goals activity Short Term Goal (STG) Pt will be able to go for short (1 mile) flat walks and stand on bike when biking w/o inc pain greater than 2/10 07/24-pain 2-3/10 w/standing on bike; .75 mile walks w/slow walking 2-3/10 STG Duration 08/11/23 Cast Iron Drain Pipe Layer Goal (LTG) Pt will be able to hike on uneven terrain and run w/o inc pain LTG Duration 09/19/23 balance Short Term Goal (STG) Pt will be able to do 15 sec SLS on LLE w/o inc pain. 07/24- 30 sec but pain when inverts STG Duration 08/15/23 Senior Living Goal (LTG) Pt will be able to do 30 sec SLS on LLE w/o inc pain. LTG Duration 09/19/23 strength Short Term Goal (STG) Pt will be indep w/HEP STG Duration achieved advancing as able Senior Living Goal (LTG) Pt will score at least 4+/5 on MMT B LEs to show improved strength and stability to allow return to activity w/o inc pain 07/24-slowly imroving LTG Duration 09/19/23 LEFS Impairment 60/80 Short Term Goal (STG) Pt will improve score to at least 70/80 to show improved functional ability. STG Duration 08/15/23 Cast Iron Drain Pipe Layer Goal (LTG) Pt will improve score to at least 78/80 to show improved functional ability. LTG Duration 09/19/23 Assessment Summary Assessment Pt did improve w/gait and pain during PT but still had significant achilles pain so had MRI which did show tearing . Pt was to follow up w/ draw end hand kaci bernsteinlow up w/PT as needed. pt no longer attending PT. DC Physical Therapy Plan Discharge Physical Therapy Discharge Reasons No Longer Attending PT
== END 2023-10-21 12:22 | disposition home or self-care (01) ==
LOC: PHYS 09:45
PROVIDERS: Family Provider Family Medicine; PCP Family Medicine; Referring Provider Family Medicine; Visit Provider Family Medicine
DX: S86.012D Strain of left Achilles tendon, subsequent encounter (principal); R53.1 Weakness; R26.2 Difficulty in walking, not elsewhere classified
CPT/HCPCS: 97035; 97110; 97140; 97162

== ENCOUNTER → 2023-08-22 08:10 | Outpatient (CLI) | payer OTHER, SELFPAY ==
--- NOTE | 2023-08-22 08:39 | DI.MRI.S_ITS ---
PROCEDURE: MR ANKLE LT WO CON INDICATIONS: left ankle/ achilles pain/ chronic despite PT TECHNIQUE: Noncontrast sagittal T1 spin echo and T2 fast spin echo with fat saturation, axial proton density fast spin echo and T2 fast spin echo with fat saturation, coronal T1 spin echo and T2 fast spin echo with fat saturation through the ankle/hindfoot. COMPARISON: None. FINDINGS: Image quality: Excellent. Tendons: The flexor, peroneal, and extensor tendon are unremarkable. There is marked tendinosis of the distal Achilles tendon with high-grade tear at the lateral aspect of the tendon insertion, correlating to the pain marker. There is mild retrocalcaneal bursitis. Bones and joints: No acute fracture. Plantar calcaneal enthesophyte. Diffuse mild marrow edema of the calcaneal tuberosity, reactive. No osteochondral defect in the talar dome. Medial structures: Chronic fracture of the medial malleolus. Prior sprain of the deep portion of the deltoid ligament. Lateral structures: The anterior and posterior tibiofibular ligaments are intact. The anterior talofibular ligament is thin, representing prior sprain. The posterior talofibular ligament is intact. The calcaneofibular ligament is intact. Sinus tarsi: Unremarkable. No fat effacement of the sinus tarsi. Plantar fascia: Mild thickening of the central cord of the plantar fascia, which can be seen the setting of plantar fasciitis. Others: Small tibiotalar effusion. Small amount of effusion within the posterior subtalar recess. IMPRESSION: 1. Marked tendinosis of the distal Achilles tendon with high-grade interstitial tear at the lateral aspect of the tendon insertion, correlating to the pain marker. Reactive marrow edema of the calcaneal tuberosity. 2. Findings suggestive of plantar fasciitis. 3. Prior sprain of the medial and lateral ankle ligament as described above. Dictated by: Kanika Freed M.D. on 08/22/2023 at 21:18 Approved by: Kanika Freed M.D. on 08/22/2023 at 21:26
== END ==
LOC: MRI 08:11
PROVIDERS: Family Provider Family Medicine; PCP Family Medicine; Referring Provider Family Medicine; Visit Provider Family Medicine
DX: S86.012A Strain of left Achilles tendon, initial encounter; M71.572 Other bursitis, not elsewhere classified, left ankle and foot; M25.572 Pain in left ankle and joints of left foot; G89.29 Other chronic pain
CPT/HCPCS: 73721

== ENCOUNTER 2024-02-21 07:30 | Outpatient (RCR) | payer OTHER, SELFPAY ==
--- NOTE | 2023-11-16 12:18 | PT.OIE ---
Current Diagnoses Achilles tendinitis, unspecified leg (11/16/23) Past Medical History (Last Updated 08/12/23 @ 08:59 by Willy Ahn MD) Achilles tendinitis Ankle pain (~1993) Bilateral shoulder pain Diverticular disease Encounter for general adult medical examination with abnormal findings Eustachian tube dysfunction Fractures (~2007) Hyperlipidemia Hypertension Hyponatremia Low back pain Sacroiliitis Sinusitis Past Surgical History (Last Updated 10/25/20 @ 06:46 by Alena Bradley) Anesthesia History of ankle surgery (~2007) Visit Care Team Role Provider Type Willy Ahn MD Family Provider Physician Primary Care Provider Specialty: Family Practice Address: [address] [place] [address], [id number] Email: [email or web address] MD Attending Provider Physician Referring Provider Specialty: Orthopedics Orthopedic Surgery Address: [address] [place] [address], [id number] Email: [email or web address] Physical Therapy Initial Evaluation PT-OP-A Visit Information Start: 11/16/23 09:06 Freq: Status: Active Protocol: Document 11/16/23 09:07 [facility] (Rec: 11/16/23 11:45 [facility] [id number]) Out-Patient Physical Therapy Visit Information Visit Information Visit Type Initial Evaluation Visit Start Time 09:08 Visit Stop Time 09:52 Visit Number 1 Number of FEDERAL MEDIATOR Visits 0 PT-OP-B Current Condition Start: 11/16/23 09:06 Freq: Status: Active Protocol: Document 11/16/23 09:07 [facility] (Rec: 11/16/23 11:45 [facility] [id number]) Current Condition History of Current Condition Onset Date 10/26 Current Complaints L achilles repair History of Current Condition Pt saw who said he can move ankle and put 25% wt on ankle with boot w/3 wedges. surgery 3 weeks ago tomorrow. Can get into the pool in a week. All stitches came out yesterday. no pain really. OCc rare tweak in ankle. otherwise , feels stiffness. He tried PT prior to surgery but was still having pain so MRI done confirming tear. 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 PT-OP-C Subjective Start: 11/16/23 09:06 Freq: Status: Active Protocol: Document 11/16/23 12:11 [facility] (Rec: 11/16/23 12:13 [facility] [id number]) Patient Questionnaires Foot & Ankle Ability Measure- ADL and Sports FAAM-ADL Score 37/80 FAAM-Sport Score 4/28 Lower Extremity Functional Scale LEFS Score 39/80 PT-OP-F Manual Assessment Start: 11/16/23 09:06 Freq: Status: Active Protocol: Document 11/16/23 09:07 [facility] (Rec: 11/16/23 11:45 [facility] [id number]) Manual Assessments Other Manual Assessments Other Manual Assessments brusing to med foot and med/ lat calf; incision looks good healing w/steri strips on top PT-OP-G Mobility & Gait Start: 11/16/23 09:06 Freq: Status: Active Protocol: Document 11/16/23 09:07 [facility] (Rec: 11/16/23 11:45 [facility] [id number]) OP Gait Assessment Comments Gait Comments amb in w/knee scooter PT-OP-K Range of Motion Start: 11/16/23 09:06 Freq: Status: Active Protocol: Document 11/16/23 09:07 [facility] (Rec: 11/16/23 11:45 [facility] [id number]) Ankle and Foot Goniometric Range of Motion Ankle and Foot Left Active Dorsiflexion with Knee Flexed 0 Dorsiflexion with Knee Extended 16 Plantarflexion 41 Inversion 30 Eversion 20 Comments comfortable range and cued not to push especially PF/DF lacking DF to neutral in knee ext position PT-OP-M Strength Start: 11/16/23 09:06 Freq: Status: Active Protocol: Document 11/16/23 09:07 [facility] (Rec: 11/16/23 11:45 [facility] [id number]) Hip Strength Hip Manual Muscle Testing Right Flexion (L2) 5 Normal Extension (S1) 4+ Good+ Abduction 4+ Good+ Adduction 4+ Good+ External Rotation 5 Normal Internal Rotation 5 Normal Left Flexion (L2) 5 Normal Abduction 4+ Good+ Adduction 4+ Good+ External Rotation 5 Normal Internal Rotation 5 Normal Knee Strength Knee Manual Muscle Testing Right Flexion (S2) 5 Normal Extension (L3) 5 Normal Left Flexion (S2) 5 Normal Extension (L3) 5 Normal Ankle/Foot Strength Ankle and Foot Manual Muscle Testing Left Comments not tested d/t protocol Right Dorsiflexion (L4) 5 Normal Plantarflexion (S1) 5 Normal Inversion 5 Normal Eversion (S1) 5 Normal Comments PF tested seated PT-OP-Q Treatments Start: 11/16/23 09:06 Freq: Status: Active Protocol: Document 11/16/23 09:07 [facility] (Rec: 11/16/23 11:45 [facility] [id number]) Therapeutic Exercises Prone Exercises ext Side bilateral Reps/Minutes 2 Sidelying Exercises hip strength Sidelying Exercise Name 1. add 2. abd Side left Reps/Minutes 8 ea Comments instructed could put wt on thigh to inc hip load Sitting Exercises toes Sitting Exercise Name 1. big toe ext 2. toes 2-5 ext only 3. toe abd 4. toe abd Side left Reps/Minutes 6 min AROM Sitting Exercise Name 1. PF/DF (gentle) 2. inversion /eversion 3. circles (CW/CCW) Side left Reps/Minutes 10 ea Gait Training Gait Activity gait Distance/Duration 8 min Comments edu that 25% WB means have to use AD (crutches or walker); edu w/use of scale and boot w /crutches what is 25% WB PT-OP-T Assessment and Plan Start: 11/16/23 09:06 Freq: Status: Active Protocol: Document 11/16/23 09:07 [facility] (Rec: 11/16/23 11:45 [facility] [id number]) Physical Therapy Assessment Rehab Potential Rehabilitation Potential Good Evaluation Complexity Number of Personal Factors/Comorbidities 1-2 Number of Body Systems Impaired 4 or More Clinical Presentation at Evaluation Evolving Impairments Impairments Activity Tolerance,Balance, Edema,Functional Activities, Functional Mobility,Gait, Integument,Pain,ROM,Soft Tissue Mobility,Strength, Transfers Goals balance Fpc Goal (LTG) Pt will be able to do 30 sec SLS B w/o inc pain LTG Duration 02/07 strength Short Term Goal (STG) Pt will be indep w/HEP STG Duration 8 Fpc Goal (LTG) Pt will have 5/5 L ankle strength and be able to do 20 heel raises on L w/o inc pain to allow for return to full activities LTG Duration 02/07 ROM Short Term Goal (STG) Pt will have DF to neutral in knee ext position on L for AROM STG Duration 12/29 Fpc Goal (LTG) Pt will have full AROM of L ankle w/o inc pain to allow for improved gait and functional mobility. LTG Duration 01/14 FAAM Impairment 37/84 Short Term Goal (STG) Pt will improve FAAM score to at least 50/84 to show improved functional ability. STG Duration 12/24 Person Investigator Goal (LTG) Pt will improve FAAM score to at least 80/84 to show improved functional ability. LTG Duration 02/07 Assessment Summary Assessment Pt presents about 3 weeks s/p L achilles repair d/t partial tear with overall good healing and pain control. He was given boot w/3 wedges yesterday and cleared for light biking, ROM and 25% WB per pt yesterday. Protocol notes still NWB and gentle ROM only. 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 He will benefit from skilled PT to return to full activity as his protocol allows. Physical Therapy Plan Frequency and Duration Frequency of Treatment 1-2x/wk Duration of treatment (weeks) 12 Plan of Care Start Date 11/16/23 Plan of Care End Date 02/08/24 Therapeutic Interventions Modalities Cold Pack/Ice Massage,Electric Stimulation,Hot Packs, Infrared Therapy,Ultrasound Next Visit Focus/Plan Next Note Type Treatment Note Next Visit Plan await further instruction from re: if pt can do more than protocol allows, otherwise ROM only and hip strength work ; when scar heals, scar tissue work
--- NOTE | 2023-11-16 12:18 | PT.OPPOC ---
Physical, Occupational & Speech Therapy At [facility] Current Diagnoses Achilles tendinitis, unspecified leg (11/16/23) Visit Care Team Role Provider Type Willy Ahn MD Family Provider Physician Primary Care Provider Specialty: Family Practice Address: [address] [place] [address], [id number] Email: [email or web address] Haley Vu MD Attending Provider Physician Referring Provider Specialty: Orthopedics Orthopedic Surgery Address: [address] [place] [address], [address] Email: [email or web address] Plan Of Care PT-OP-T Assessment and Plan Start: 11/16/23 09:06 Freq: Status: Active Protocol: Document 11/16/23 09:07 [facility] (Rec: 11/16/23 11:45 [facility] [id number]) Physical Therapy Assessment Rehab Potential Rehabilitation Potential Good Evaluation Complexity Number of Personal Factors/Comorbidities 1-2 Number of Body Systems Impaired 4 or More Clinical Presentation at Evaluation Evolving Impairments Impairments Activity Tolerance,Balance, Edema,Functional Activities, Functional Mobility,Gait, Integument,Pain,ROM,Soft Tissue Mobility,Strength, Transfers Goals balance Radiation Protection Technician Goal (LTG) Pt will be able to do 30 sec SLS B w/o inc pain LTG Duration 02/07 strength Short Term Goal (STG) Pt will be indep w/HEP STG Duration 12/23 Radiation Protection Technician Goal (LTG) Pt will have 5/5 L ankle strength and be able to do 20 heel raises on L w/o inc pain to allow for return to full activities LTG Duration 02/07 ROM Short Term Goal (STG) Pt will have DF to neutral in knee ext position on L for AROM STG Duration 12/29 Alf Goal (LTG) Pt will have full AROM of L ankle w/o inc pain to allow for improved gait and functional mobility. LTG Duration 01/14 FAAM Impairment 37/84 Short Term Goal (STG) Pt will improve FAAM score to at least 50/84 to show improved functional ability. STG Duration 12/24 Radiation Protection Technician Goal (LTG) Pt will improve FAAM score to at least 80/84 to show improved functional ability. LTG Duration 02/07 Assessment Summary Assessment Pt presents about 3 weeks s/p L achilles repair d/t partial tear with overall good healing and pain control. He was given boot w/3 wedges yesterday and cleared for light biking, ROM and 25% WB per pt yesterday. Protocol notes still NWB and gentle ROM only. 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 He will benefit from skilled PT to return to full activity as his protocol allows. Physical Therapy Plan Frequency and Duration Frequency of Treatment 1-2x/wk Duration of treatment (weeks) 12 Plan of Care Start Date 11/16/23 Plan of Care End Date 02/08/24 Therapeutic Interventions Modalities Cold Pack/Ice Massage,Electric Stimulation,Hot Packs, Infrared Therapy,Ultrasound Next Visit Focus/Plan Next Note Type Treatment Note Next Visit Plan await further instruction from re: if pt can do more than protocol allows, otherwise ROM only and hip strength work ; when scar heals, scar tissue work Plan of Care Dates Plan of Care Start Date 11/16/23 Plan of Care End Date 02/08/24 Electronically Signed by: Ciera Hernandez, PT 11/16/23 2274 If you are in agreement with this Plan of Care, please return a signed and dated copy. I have reviewed this Plan of Care and certify that the skilled therapy services above are required to meet the patient?s needs. Physician Signature Date Printed Name and Credentials Clinical Instructor Signature Printed Name and Credentials
--- NOTE | 2023-11-16 19:00 | PT-OP ANOTE ---
Talked to ortho office who said pt was cleared for 25% WB and was to send over note.
--- NOTE | 2023-11-22 16:52 | PT.OTN ---
Addendum entered and electronically signed by Ciera Hernandez PT 11/22/23 17:40: PT direct supervision and direction to student PT [place] throughout session Original Note: Current Diagnoses Achilles tendinitis, unspecified leg (11/22/23) Physical Therapy Treatment Note PT-OP-A Visit Information Start: 11/16/23 09:06 Freq: Status: Active Protocol: Document 11/22/23 11:16 [facility] (Rec: 11/22/23 12:16 [id number]) Out-Patient Physical Therapy Visit Information Visit Information Visit Type Treatment Note Visit Start Time 11:16 Visit Stop Time 12:00 Visit Number 2 Number of PICKING TABLE WORKER Visits 0 PT-OP-B Current Condition Start: 11/16/23 09:06 Freq: Status: Active Protocol: Document 11/16/23 09:07 [facility] (Rec: 11/16/23 11:45 [facility] [id number]) Current Condition History of Current Condition Onset Date 10/26 Current Complaints L achilles repair History of Current Condition Pt saw dr who said he can move ankle and put 25% wt on ankle with boot w/3 wedges. surgery 3 weeks ago tomorrow. Can get into the pool in a week. All stitches came out yesterday. no pain really. OCc rare tweak in ankle. otherwise , feels stiffness. He tried PT prior to surgery but was still having pain so MRI done confirming tear. 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 Went to [facility] to see if they were able to get on and off equipment PT-OP-F Manual Assessment Start: 11/16/23 09:06 Freq: Status: Active Protocol: Document 11/16/23 09:07 [facility] (Rec: 11/16/23 11:45 [facility] [id number]) Manual Assessments Other Manual Assessments Other Manual Assessments brusing to med foot and med/ lat calf; incision looks good healing w/steri strips on top PT-OP-G Mobility & Gait Start: 11/16/23 09:06 Freq: Status: Active Protocol: Document 11/16/23 09:07 [facility] (Rec: 11/16/23 11:45 [facility] [id number]) OP Gait Assessment Comments Gait Comments amb in w/knee scooter PT-OP-K Range of Motion Start: 11/16/23 09:06 Freq: Status: Active Protocol: Document 11/16/23 09:07 [facility] (Rec: 11/16/23 11:45 [facility] [id number]) Ankle and Foot Goniometric Range of Motion Ankle and Foot Left Active Dorsiflexion with Knee Flexed 0 Dorsiflexion with Knee Extended 16 Plantarflexion 41 Inversion 30 Eversion 20 Comments comfortable range and cued not to push especially PF/DF lacking DF to neutral in knee ext position PT-OP-M Strength Start: 11/16/23 09:06 Freq: Status: Active Protocol: Document 11/16/23 09:07 [facility] (Rec: 11/16/23 11:45 [facility] [id number]) Hip Strength Hip Manual Muscle Testing Right Flexion (L2) 5 Normal Extension (S1) 4+ Good+ Abduction 4+ Good+ Adduction 4+ Good+ External Rotation 5 Normal Internal Rotation 5 Normal Left Flexion (L2) 5 Normal Abduction 4+ Good+ Adduction 4+ Good+ External Rotation 5 Normal Internal Rotation 5 Normal Knee Strength Knee Manual Muscle Testing Right Flexion (S2) 5 Normal Extension (L3) 5 Normal Left Flexion (S2) 5 Normal Extension (L3) 5 Normal Ankle/Foot Strength Ankle and Foot Manual Muscle Testing Left Comments not tested d/t protocol Right Dorsiflexion (L4) 5 Normal Plantarflexion (S1) 5 Normal Inversion 5 Normal Eversion (S1) 5 Normal Comments PF tested seated PT-OP-Q Treatments Start: 11/16/23 09:06 Freq: Status: Active Protocol: Document 11/22/23 11:16 [facility] (Rec: 11/22/23 12:16 [facility] [id number]) Gym Equipment Cable Column (Body Solid) abd/add Details Ed pt on how to set up on machine with WB precuations on L LE Resistance 3 plates Reps/Time 2x15 ea Therapeutic Exercises Sitting Exercises Hamstrings Sitting Exercise Name Hamstring curls Side bilateral Resistance lvl 3 TB Reps/Minutes 15 ea Quad ext Side bilateral Equipment Used lvl 3 TB Reps/Minutes 20 ea Ankle Sitting Exercise Name (CW/CCW), ABC's Side left Reps/Minutes x10, ABC's 1 time capital letters Marbles Sitting Exercise Name [place] pickups with toes Side left Equipment Used marbles, towel Reps/Minutes x20 towel scrunches Side left Equipment Used Towel, slide board Reps/Minutes 2 repetitions toes Sitting Exercise Name 1. big toe ext 2. toes 2-5 ext only 3. toe abd 4. toe abd Side left Reps/Minutes 6 min AROM Sitting Exercise Name 1. PF/DF (gentle) 2. inversion /eversion 3. circles (CW/CCW) Side left Reps/Minutes 10 ea Gait Training Gait Activity gait Distance/Duration 3 Comments edu that 50% WB means have to use AD (crutches or walker); edu w/use of scale and boot w /crutches what is 25% WB PT-OP-T Assessment and Plan Start: 11/16/23 09:06 Freq: Status: Active Protocol: Document 11/22/23 11:16 (Rec: 11/22/23 12:16 [id number]) Physical Therapy Assessment Goals balance Anesthesiologist Assistant Certified Goal (LTG) Pt will be able to do 30 sec SLS B w/o inc pain LTG Duration 02/07 strength Short Term Goal (STG) Pt will be indep w/HEP STG Duration 12/23 Anesthesiologist Assistant Certified Goal (LTG) Pt will have 5/5 L ankle strength and be able to do 20 heel raises on L w/o inc pain to allow for return to full activities LTG Duration 02/07 ROM Short Term Goal (STG) Pt will have DF to neutral in knee ext position on L for AROM STG Duration 12/29 Retirement Goal (LTG) Pt will have full AROM of L ankle w/o inc pain to allow for improved gait and functional mobility. LTG Duration 01/14 FAAM Impairment 37/84 Short Term Goal (STG) Pt will improve FAAM score to at least 50/84 to show improved functional ability. STG Duration 12/24 Retirement Goal (LTG) Pt will improve FAAM score to at least 80/84 to show improved functional ability. LTG Duration 02/07 Progress Towards Goals Progress Towards Goals Progressing Toward Goals Assessment Summary Assessment Pt responded well today with exercises. Pt is currently WB at 50% and following WB precautions. Pt is progressing with exercises and is now working on strengthening hips and knees using TB and gym equipment. Physical Therapy Plan Frequency and Duration Frequency of Treatment 1-2x/wk Duration of treatment (weeks) 12 Plan of Care Start Date 11/16/23 Plan of Care End Date 02/08/24 Next Visit Focus/Plan Next Note Type Treatment Note Next Visit Plan Con't with exercises following WB precuations. Progress to 75% WB on 11/28 and full WB . Ankle ROM, hip abd/add, TB knee exercises: quad ext/ flexion
--- NOTE | 2023-12-06 16:19 | PT.OTN ---
Current Diagnoses Achilles tendinitis, unspecified leg (12/06/23) Physical Therapy Treatment Note PT-OP-A Visit Information Start: 11/16/23 09:06 Freq: Status: Active Protocol: Document 12/06/23 14:38 [facility] (Rec: 12/06/23 16:19 [facility] [id number]) Out-Patient Physical Therapy Visit Information Visit Information Visit Type Treatment Note Visit Start Time 14:38 Visit Stop Time 15:20 Visit Number 4 Number of BIRTH ATTENDANT Visits 2 PT-OP-B Current Condition Start: 11/16/23 09:06 Freq: Status: Active Protocol: Document 11/16/23 09:07 [facility] (Rec: 11/16/23 11:45 [facility] [id number]) Current Condition History of Current Condition Onset Date 10/26 Current Complaints L achilles repair History of Current Condition Pt saw who said he can move ankle and put 25% wt on ankle with boot w/3 wedges. surgery 3 weeks ago tomorrow. Can get into the pool in a week. All stitches came out yesterday. no pain really. OCc rare tweak in ankle. otherwise , feels stiffness. He tried PT prior to surgery but was still having pain so MRI done confirming tear. 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 He was advised by surgeon not to overdo activaty. One of three heel lifts was removed and he states one will be removed in a week and the last the week after. He worked out in gym yesterday doing legs with machines so doesn't want to do them today. He did towel scrunches and marble pickups this morning. He's been using the crutch since last week and needed instruction to use it on R side instead of L. PT-OP-F Manual Assessment Start: 11/16/23 09:06 Freq: Status: Active Protocol: Document 11/16/23 09:07 [facility] (Rec: 11/16/23 11:45 [facility] [id number]) Manual Assessments Other Manual Assessments Other Manual Assessments brusing to med foot and med/ lat calf; incision looks good healing w/steri strips on top PT-OP-G Mobility & Gait Start: 11/16/23 09:06 Freq: Status: Active Protocol: Document 11/16/23 09:07 [facility] (Rec: 11/16/23 11:45 [facility] [id number]) OP Gait Assessment Comments Gait Comments amb in w/knee scooter PT-OP-K Range of Motion Start: 11/16/23 09:06 Freq: Status: Active Protocol: Document 11/16/23 09:07 [facility] (Rec: 11/16/23 11:45 [facility] [id number]) Ankle and Foot Goniometric Range of Motion Ankle and Foot Left Active Dorsiflexion with Knee Flexed 0 Dorsiflexion with Knee Extended 16 Plantarflexion 41 Inversion 30 Eversion 20 Comments comfortable range and cued not to push especially PF/DF lacking DF to neutral in knee ext position PT-OP-M Strength Start: 11/16/23 09:06 Freq: Status: Active Protocol: Document 11/16/23 09:07 [facility] (Rec: 11/16/23 11:45 [facility] [id number]) Hip Strength Hip Manual Muscle Testing Right Flexion (L2) 5 Normal Extension (S1) 4+ Good+ Abduction 4+ Good+ Adduction 4+ Good+ External Rotation 5 Normal Internal Rotation 5 Normal Left Flexion (L2) 5 Normal Abduction 4+ Good+ Adduction 4+ Good+ External Rotation 5 Normal Internal Rotation 5 Normal Knee Strength Knee Manual Muscle Testing Right Flexion (S2) 5 Normal Extension (L3) 5 Normal Left Flexion (S2) 5 Normal Extension (L3) 5 Normal Ankle/Foot Strength Ankle and Foot Manual Muscle Testing Left Comments not tested d/t protocol Right Dorsiflexion (L4) 5 Normal Plantarflexion (S1) 5 Normal Inversion 5 Normal Eversion (S1) 5 Normal Comments PF tested seated PT-OP-Q Treatments Start: 11/16/23 09:06 Freq: Status: Active Protocol: Document 12/06/23 14:38 [facility] (Rec: 12/06/23 16:19 [facility] [id number]) Therapeutic Exercises Sidelying Exercises hip strength Sidelying Exercise Name 1. add 2. abd Side left Reps/Minutes x12 ea Comments instructed could put wt on thigh to inc hip load Sitting Exercises BAPS Sitting Exercise Name sitting>standing: a/p, m/l, CW /CCW ea Side left Equipment Used Lvl 3>4 Comments significant cueing for keeping L knee still Hamstrings Sitting Exercise Name Pt declines d/t doing on weight machine at gym yesterday Quad ext Sitting Exercise Name Pt declines d/t doing on weight machine at gym yesterday towel scrunches Sitting Exercise Name Pt declines d/t performing this morning Manual Therapy Treatment Consent Patient gave verbal consent for manual Yes treatment Soft Tissue Mobilization L calf Body Location Gastrocnemius, soleus, Achilles t. Mobilization Type Cross-Friction,Rolling,Other Intensity/Depth Moderate Body Position Prone Comments monitored for pain. manual stretch to gastroc and soleus 2 x45s each scar Body Location L calf, Achilles Mobilization Type Cross-Friction,Rolling Intensity/Depth Moderate Body Position hooklying, prone Comments incision well-healed. i/s to pt for performing self- scar mobilization Neuro Re-Education Treatment Balance Activities // bars Comments 1. weightshifting m/l 2. staggered stance rocking w/ arm swing Guy (w and wo wedge under LLE when back leg) 3. walking wo AD, focus on even stance time 4. L SL balance multiple trials (UE support> no UE support) Self-Care/Home Management Treatment Education Patient Education Home Exercise Program,Joint Protection,Pain Management, Safety Other Education i/s pt in self-scar tissue mobilization. PT-OP-T Assessment and Plan Start: 11/16/23 09:06 Freq: Status: Active Protocol: Document 12/06/23 14:38 [facility] (Rec: 12/06/23 16:19 [facility] [id number]) Physical Therapy Assessment Goals balance Residential Goal (LTG) Pt will be able to do 30 sec SLS B w/o inc pain LTG Duration 02/07 strength Short Term Goal (STG) Pt will be indep w/HEP STG Duration 12/23 Residential Goal (LTG) Pt will have 5/5 L ankle strength and be able to do 20 heel raises on L w/o inc pain to allow for return to full activities LTG Duration 9/25 ROM Short Term Goal (STG) Pt will have DF to neutral in knee ext position on L for AROM STG Duration 12/29 Residential Goal (LTG) Pt will have full AROM of L ankle w/o inc pain to allow for improved gait and functional mobility. LTG Duration 01/14 FAAM Impairment 37/84 Short Term Goal (STG) Pt will improve FAAM score to at least 50/84 to show improved functional ability. STG Duration 12/24 Extended Day Teacher Goal (LTG) Pt will improve FAAM score to at least 80/84 to show improved functional ability. LTG Duration 02/07 Assessment Summary Assessment Huey presents after surgical follow up an hour ago. He was cleared for 100% WB and presents using crutch appropriately under RUE. Treatment focus on weightshifting, balance, ankle ROM, scar tissue mobilzation and education, and manual therapy. Pt requires significant tactile cueing for keeping L knee still w/ BAPS board and Lvl 3 was too challenging so modified to Lvl 2. He requires cues for breathholding compensation w/ challenging therex. Reviewed protocol w/ pt and per conversation with evaluating PT, pt is progressing faster than protocol, ok to continue w/ machines at gym for LE strengthening, and may be in flat shoe next week. Physical Therapy Plan Frequency and Duration Frequency of Treatment 1-2x/wk Duration of treatment (weeks) 12 Plan of Care Start Date 11/16/23 Plan of Care End Date 02/08/24 Therapeutic Interventions Modalities Cold Pack/Ice Massage,Electric Stimulation,Hot Packs, Infrared Therapy,Ultrasound Next Visit Focus/Plan Next Note Type Treatment Note Next Visit Plan Con't with exercises following WB precuations. Progress to 75% WB on 11/28 and full WB . Ankle ROM, hip abd/add, TB knee exercises: quad ext/ flexion
--- NOTE | 2023-12-07 08:15 | PT-OP ANOTE ---
Surgeon office called re: pt most recent note and clarification on progression.
--- NOTE | 2023-12-13 16:16 | PT-OP ANOTE ---
Addendum entered and electronically signed by Ciera Hernandez, PT 12/13/23 16:31: Called again and vm left w/triage line re: same questions Original Note: Pt's provider called re: clarification on shoe vs boot and dec use of heel lifts for speed of decrease. VM left at 1220 pm
--- NOTE | 2023-12-21 09:48 | PT-OP ANOTE ---
[facility] medical office scheduler: We received a call from Horace?s office regarding your call to them. They report that Huey can ween out of his lift as tolerated. And that she will discuss return to work with him at his scheduled post op later this month.
--- NOTE | 2023-12-21 16:15 | PT.OTN ---
Current Diagnoses Achilles tendinitis, unspecified leg (12/21/23) Physical Therapy Treatment Note PT-OP-A Visit Information Start: 11/16/23 09:06 Freq: Status: Active Protocol: Document 12/21/23 13:55 [facility] (Rec: 12/21/23 14:34 [facility] [id number]) Out-Patient Physical Therapy Visit Information Visit Information Visit Type Treatment Note Visit Start Time 13:50 Visit Stop Time 14:30 Visit Number 6 Number of PROFESSIONAL SERVICES SPECIALIST Visits 0 PT-OP-B Current Condition Start: 11/16/23 09:06 Freq: Status: Active Protocol: Document 11/16/23 09:07 [facility] (Rec: 11/16/23 11:45 [facility] [id number]) Current Condition History of Current Condition Onset Date 10/26 Current Complaints L achilles repair History of Current Condition Pt saw who said he can move ankle and put 25% wt on ankle with boot w/3 wedges. surgery 3 weeks ago tomorrow. Can get into the pool in a week. All stitches came out yesterday. no pain really. OCc rare tweak in ankle. otherwise , feels stiffness. He tried PT prior to surgery but was still having pain so MRI done confirming tear. 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 has been dec boot use and doing more shoe use recently w/o inc pain PT-OP-F Manual Assessment Start: 11/16/23 09:06 Freq: Status: Active Protocol: Document 11/16/23 09:07 [facility] (Rec: 11/16/23 11:45 [facility] [id number]) Manual Assessments Other Manual Assessments Other Manual Assessments brusing to med foot and med/ lat calf; incision looks good healing w/steri strips on top PT-OP-G Mobility & Gait Start: 11/16/23 09:06 Freq: Status: Active Protocol: Document 11/16/23 09:07 [facility] (Rec: 11/16/23 11:45 [facility] [id number]) OP Gait Assessment Comments Gait Comments amb in w/knee scooter PT-OP-K Range of Motion Start: 11/16/23 09:06 Freq: Status: Active Protocol: Document 11/16/23 09:07 [facility] (Rec: 11/16/23 11:45 [facility] [id number]) Ankle and Foot Goniometric Range of Motion Ankle and Foot Left Active Dorsiflexion with Knee Flexed 0 Dorsiflexion with Knee Extended 16 Plantarflexion 41 Inversion 30 Eversion 20 Comments comfortable range and cued not to push especially PF/DF lacking DF to neutral in knee ext position PT-OP-M Strength Start: 11/16/23 09:06 Freq: Status: Active Protocol: Document 11/16/23 09:07 [facility] (Rec: 11/16/23 11:45 [facility] [id number]) Hip Strength Hip Manual Muscle Testing Right Flexion (L2) 5 Normal Extension (S1) 4+ Good+ Abduction 4+ Good+ Adduction 4+ Good+ External Rotation 5 Normal Internal Rotation 5 Normal Left Flexion (L2) 5 Normal Abduction 4+ Good+ Adduction 4+ Good+ External Rotation 5 Normal Internal Rotation 5 Normal Knee Strength Knee Manual Muscle Testing Right Flexion (S2) 5 Normal Extension (L3) 5 Normal Left Flexion (S2) 5 Normal Extension (L3) 5 Normal Ankle/Foot Strength Ankle and Foot Manual Muscle Testing Left Comments not tested d/t protocol Right Dorsiflexion (L4) 5 Normal Plantarflexion (S1) 5 Normal Inversion 5 Normal Eversion (S1) 5 Normal Comments PF tested seated PT-OP-Q Treatments Start: 11/16/23 09:06 Freq: Status: Active Protocol: Document 12/21/23 13:55 [facility] (Rec: 12/21/23 14:34 [facility] [id number]) Gym Equipment Shuttle Balance Red Comments WBOS fwd and side Therapeutic Exercises Sitting Exercises Ankle Sitting Exercise Name 4 way Side left Equipment Used L3 Reps/Minutes 10 ea Comments cues for controlled eccentric motion Manual Therapy Treatment Consent Patient gave verbal consent for manual Yes treatment Soft Tissue Mobilization L calf Body Location Gastrocnemius, soleus Mobilization Type Cross-Friction,Rolling,Other Intensity/Depth Moderate Body Position Prone Comments monitored for pain. w/gentle AAROM ankle scar Body Location L calf, Achilles Mobilization Type Myofascial Release Intensity/Depth Superficial Body Position Prone Comments monitored for pain. w/gentle AAROM ankle Neuro Re-Education Treatment Balance Activities bosu Reps/Duration 8 SLS Comments 1. SLS trials B tandem Comments 1. stance 2. walk 10ftx2 EC Comments NBOS, staggered stance B PT-OP-T Assessment and Plan Start: 11/16/23 09:06 Freq: Status: Active Protocol: Document 12/21/23 13:55 [facility] (Rec: 12/21/23 14:34 [facility] [id number]) Physical Therapy Assessment Goals balance Nursing Home Goal (LTG) Pt will be able to do 30 sec SLS B w/o inc pain LTG Duration 02/07 strength Short Term Goal (STG) Pt will be indep w/HEP STG Duration 12/23 Change House Attendant Goal (LTG) Pt will have 5/5 L ankle strength and be able to do 20 heel raises on L w/o inc pain to allow for return to full activities LTG Duration 02/07 ROM Short Term Goal (STG) Pt will have DF to neutral in knee ext position on L for AROM STG Duration 12/29 Change House Attendant Goal (LTG) Pt will have full AROM of L ankle w/o inc pain to allow for improved gait and functional mobility. LTG Duration 01/14 FAAM Impairment 37/84 Short Term Goal (STG) Pt will improve FAAM score to at least 50/84 to show improved functional ability. STG Duration 12/24 Change House Attendant Goal (LTG) Pt will improve FAAM score to at least 80/84 to show improved functional ability. LTG Duration 02/07 Assessment Summary Assessment Pt is very challenged by balance tasks and has mild unsteadiness w/gait likely d/t dec ankle stability. He is encouraged to slowly inc walking at home and transitioning mroe to shoe as long as it is comfortable. Plan to dec 1 wedge next week. Cane height inc for as needed but pt able to amb w/o AD Physical Therapy Plan Frequency and Duration Frequency of Treatment 1-2x/wk Duration of treatment (weeks) 12 Plan of Care Start Date 11/16/23 Plan of Care End Date 02/08/24 Next Visit Focus/Plan Next Note Type Treatment Note Next Visit Plan focus on ankle strength and stability; work on gait mechanics
--- NOTE | 2023-12-27 16:06 | PT.OTN ---
Current Diagnoses Achilles tendinitis, unspecified leg (12/27/23) Physical Therapy Treatment Note PT-OP-A Visit Information Start: 11/16/23 09:06 Freq: Status: Active Protocol: Document 12/27/23 14:31 [facility] (Rec: 12/27/23 16:06 [facility] [id number]) Out-Patient Physical Therapy Visit Information Visit Information Visit Type Progress Note Visit Start Time 14:34 Visit Stop Time 15:15 Visit Number 7 Number of SENIOR ANIMATOR Visits 0 PT-OP-B Current Condition Start: 11/16/23 09:06 Freq: Status: Active Protocol: Document 11/16/23 09:07 [facility] (Rec: 11/16/23 11:45 [facility] [id number]) Current Condition History of Current Condition Onset Date 10/26 Current Complaints L achilles repair History of Current Condition Pt saw who said he can move ankle and put 25% wt on ankle with boot w/3 wedges. surgery 3 weeks ago tomorrow. Can get into the pool in a week. All stitches came out yesterday. no pain really. OCc rare tweak in ankle. otherwise , feels stiffness. He tried PT prior to surgery but was still having pain so MRI done confirming tear. 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 PT-OP-C Subjective Start: 11/16/23 09:06 Freq: Status: Active Protocol: Document 12/27/23 14:31 [facility] (Rec: 12/27/23 16:06 [facility] [id number]) OP-PT Subjective Patient Comments Patient Comments did walk 1 mile tuesday and plantar fascia is sore Patient Questionnaires Foot & Ankle Ability Measure- ADL and Sports FAAM-ADL Score 68/84 PT-OP-F Manual Assessment Start: 11/16/23 09:06 Freq: Status: Active Protocol: Document 11/16/23 09:07 [facility] (Rec: 11/16/23 11:45 [facility] [id number]) Manual Assessments Other Manual Assessments Other Manual Assessments brusing to med foot and med/ lat calf; incision looks good healing w/steri strips on top PT-OP-G Mobility & Gait Start: 11/16/23 09:06 Freq: Status: Active Protocol: Document 11/16/23 09:07 [facility] (Rec: 11/16/23 11:45 [facility] [id number]) OP Gait Assessment Comments Gait Comments amb in w/knee scooter PT-OP-K Range of Motion Start: 11/16/23 09:06 Freq: Status: Active Protocol: Document 12/27/23 14:31 [facility] (Rec: 12/27/23 16:06 [facility] [id number]) Ankle and Foot Goniometric Range of Motion Ankle and Foot Left Active Dorsiflexion with Knee Flexed 3 Dorsiflexion with Knee Extended 0 Plantarflexion 52 Inversion 36 Eversion 25 Comments comfortable range PT-OP-M Strength Start: 11/16/23 09:06 Freq: Status: Active Protocol: Document 12/27/23 14:31 [facility] (Rec: 12/27/23 16:06 [facility] [id number]) Ankle/Foot Strength Ankle and Foot Manual Muscle Testing Left Dorsiflexion (L4) 4 Good Plantarflexion (S1) 2+ Poor+ Inversion 4 Good Eversion (S1) 4 Good Comments seated press Right Dorsiflexion (L4) 5 Normal Plantarflexion (S1) 5 Normal Inversion 5 Normal Eversion (S1) 5 Normal Comments PF tested seated PT-OP-Q Treatments Start: 11/16/23 09:06 Freq: Status: Active Protocol: Document 12/27/23 14:31 [facility] (Rec: 12/27/23 16:06 [facility] [id number]) Gym Equipment Shuttle Balance Red Comments fwd: WBOS & NBOS EO/EC & head turn trials side: wbos w/head turns & NBOS fwd: staggered stacne w/head turns Sport Cord backwards Cord/Resistance red Reps/Duration 8 fwd walk Cord/Resistance red Reps/Duration 8 Therapeutic Exercises Sitting Exercises AROM Sitting Exercise Name all planes measured & isometric MMT Side left Standing Exercises DF Standing Exercise Name back at wall Side bilateral Manual Therapy Treatment Consent Patient gave verbal consent for manual Yes treatment Soft Tissue Mobilization L calf Body Location Gastrocnemius, soleus Mobilization Type Cross-Friction,Rolling,Other Intensity/Depth Moderate Body Position Prone Comments monitored for pain. w/gentle AAROM ankle scar Body Location L calf, Achilles Mobilization Type Myofascial Release Intensity/Depth Superficial Body Position Prone Comments monitored for pain. w/gentle AAROM ankle Neuro Re-Education Treatment Balance Activities wt shifts Reps/Duration 5 x ea LE Comments to SLS max pt can PT-OP-T Assessment and Plan Start: 11/16/23 09:06 Freq: Status: Active Protocol: Document 12/27/23 14:31 [facility] (Rec: 12/27/23 16:06 [facility] [id number]) Physical Therapy Assessment Goals balance Accounting Auditor Goal (LTG) Pt will be able to do 30 sec SLS B w/o inc pain 12/26-18 sec w/deviation LTG Duration 02/07 strength Short Term Goal (STG) Pt will be indep w/HEP STG Duration achieved advancing as able Accounting Auditor Goal (LTG) Pt will have 5/5 L ankle strength and be able to do 20 heel raises on L w/o inc pain to allow for return to full activities 12/26-strenth gradually improving LTG Duration 02/07 ROM Short Term Goal (STG) Pt will have DF to neutral in knee ext position on L for AROM STG Duration achieved 12/26 Halfway Goal (LTG) Pt will have full AROM of L ankle w/o inc pain to allow for improved gait and functional mobility. LTG Duration 01/14 FAAM Impairment 37/84 Short Term Goal (STG) Pt will improve FAAM score to at least 50/84 to show improved functional ability. STG Duration achieved 12/26 Accounting Auditor Goal (LTG) Pt will improve FAAM score to at least 80/84 to show improved functional ability. LTG Duration 02/07 Assessment Summary Assessment Pt is making excellent progress w/PT and had one further heel lift dec from shoe today for session w/o inc pain. Improved gait and balacne today and improved overall ROM and strength. Cont PT for full return to activity w/o inc pain. Physical Therapy Plan Frequency and Duration Frequency of Treatment 1-2x/wk Duration of treatment (weeks) 12 Plan of Care Start Date 11/16/23 Plan of Care End Date 02/08/24 Therapeutic Interventions Modalities Cold Pack/Ice Massage,Electric Stimulation,Hot Packs, Infrared Therapy,Ultrasound Next Visit Focus/Plan Next Note Type Treatment Note Next Visit Plan focus on ankle strength and stability; work on gait mechanics
--- NOTE | 2024-01-05 16:29 | PT.OTN ---
Current Diagnoses Achilles tendinitis, unspecified leg (01/05/24) Physical Therapy Treatment Note PT-OP-A Visit Information Start: 11/16/23 09:06 Freq: Status: Active Protocol: Document 01/05/24 08:08 AB (Rec: 01/05/24 10:35 AB [id number]) Out-Patient Physical Therapy Visit Information Visit Information Visit Type Treatment Note Visit Start Time 09:06 Visit Stop Time 09:47 Visit Number 8 Number of WARPER CREELER Visits 1 PT-OP-B Current Condition Start: 11/16/23 09:06 Freq: Status: Active Protocol: Document 11/16/23 09:07 [facility] (Rec: 11/16/23 11:45 [facility] [id number]) Current Condition History of Current Condition Onset Date 10/26 Current Complaints L achilles repair History of Current Condition Pt saw who said he can move ankle and put 25% wt on ankle with boot w/3 wedges. surgery 3 weeks ago tomorrow. Can get into the pool in a week. All stitches came out yesterday. no pain really. OCc rare tweak in ankle. otherwise , feels stiffness. He tried PT prior to surgery but was still having pain so MRI done confirming tear. 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 PT-OP-F Manual Assessment Start: 11/16/23 09:06 Freq: Status: Active Protocol: Document 11/16/23 09:07 [facility] (Rec: 11/16/23 11:45 [facility] [id number]) Manual Assessments Other Manual Assessments Other Manual Assessments brusing to med foot and med/ lat calf; incision looks good healing w/steri strips on top PT-OP-G Mobility & Gait Start: 11/16/23 09:06 Freq: Status: Active Protocol: Document 11/16/23 09:07 [facility] (Rec: 11/16/23 11:45 [facility] [id number]) OP Gait Assessment Comments Gait Comments amb in w/knee scooter PT-OP-K Range of Motion Start: 11/16/23 09:06 Freq: Status: Active Protocol: Document 12/27/23 14:31 [facility] (Rec: 12/27/23 16:06 [facility] [id number]) Ankle and Foot Goniometric Range of Motion Ankle and Foot Left Active Dorsiflexion with Knee Flexed 3 Dorsiflexion with Knee Extended 0 Plantarflexion 52 Inversion 36 Eversion 25 Comments comfortable range PT-OP-M Strength Start: 11/16/23 09:06 Freq: Status: Active Protocol: Document 12/27/23 14:31 [facility] (Rec: 12/27/23 16:06 [facility] [id number]) Ankle/Foot Strength Ankle and Foot Manual Muscle Testing Left Dorsiflexion (L4) 4 Good Plantarflexion (S1) 2+ Poor+ Inversion 4 Good Eversion (S1) 4 Good Comments seated press Right Dorsiflexion (L4) 5 Normal Plantarflexion (S1) 5 Normal Inversion 5 Normal Eversion (S1) 5 Normal Comments PF tested seated PT-OP-Q Treatments Start: 11/16/23 09:06 Freq: Status: Active Protocol: Document 01/05/24 08:08 AB (Rec: 01/05/24 10:35 AB [id number]) Therapeutic Exercises Sitting Exercises BAPS Sitting Exercise Name sitting CW/CCW ea Side left Reps/Minutes X10 Comments significant cueing for keeping L knee still Ankle Sitting Exercise Name 4 way Side left Equipment Used L3 Reps/Minutes 15 ea Comments cues for controlled eccentric motion toes Sitting Exercise Name great toe abd X 5 and toe yoga X 5 Side left Comments Pt reports discomfort in area of previous avulsion fx with great toe abd Gait Training Gait Activity gait Description verbal cues for heel toe pattern Distance/Duration 15 feet X 2 Manual Therapy Treatment Soft Tissue Mobilization L calf Body Location Gastrocnemius, soleus Mobilization Type Cross-Friction,Rolling,Other Intensity/Depth Moderate Body Position Prone Comments monitored for pain. scar Body Location L calf, Achilles Mobilization Type Myofascial Release Intensity/Depth Superficial Body Position Prone Comments monitored for pain. PT-OP-T Assessment and Plan Start: 11/16/23 09:06 Freq: Status: Active Protocol: Document 01/05/24 08:08 AB (Rec: 01/05/24 10:35 AB [id number]) Physical Therapy Assessment Goals balance Purchasing Clerk Goal (LTG) Pt will be able to do 30 sec SLS B w/o inc pain 12/26-18 sec w/deviation LTG Duration 02/07 strength Short Term Goal (STG) Pt will be indep w/HEP STG Duration achieved advancing as able Intermediate Goal (LTG) Pt will have 5/5 L ankle strength and be able to do 20 heel raises on L w/o inc pain to allow for return to full activities 12/26-strenth gradually improving LTG Duration 02/07 ROM Short Term Goal (STG) Pt will have DF to neutral in knee ext position on L for AROM STG Duration achieved 12/26 Purchasing Clerk Goal (LTG) Pt will have full AROM of L ankle w/o inc pain to allow for improved gait and functional mobility. LTG Duration 01/14 FAAM Impairment 37/84 Short Term Goal (STG) Pt will improve FAAM score to at least 50/84 to show improved functional ability. STG Duration achieved 12/26 Intermediate Goal (LTG) Pt will improve FAAM score to at least 80/84 to show improved functional ability. LTG Duration 02/07 Assessment Summary Assessment 7 deg AROM DF end of session left ankle. Patient reports having no pain end of session ambulating without device end of session. Physical Therapy Plan Frequency and Duration Frequency of Treatment 1-2x/wk Duration of treatment (weeks) 12 Plan of Care Start Date 11/16/23 Plan of Care End Date 02/08/24 Next Visit Focus/Plan Next Note Type Treatment Note Next Visit Plan focus on ankle strength and stability; work on gait mechanics
--- NOTE | 2024-01-12 10:34 | PT.OTN ---
Current Diagnoses Achilles tendinitis, unspecified leg (01/12/24) Physical Therapy Treatment Note PT-OP-A Visit Information Start: 11/16/23 09:06 Freq: Status: Active Protocol: Document 01/12/24 09:16 [facility] (Rec: 01/12/24 10:34 [facility] [id number]) Out-Patient Physical Therapy Visit Information Visit Information Visit Type Treatment Note Visit Start Time 09:51 Visit Stop Time 10:30 Visit Number 9 Number of MATERIAL DISTRIBUTOR Visits 0 PT-OP-B Current Condition Start: 11/16/23 09:06 Freq: Status: Active Protocol: Document 11/16/23 09:07 [facility] (Rec: 11/16/23 11:45 [facility] [id number]) Current Condition History of Current Condition Onset Date 10/26 Current Complaints L achilles repair History of Current Condition Pt saw who said he can move ankle and put 25% wt on ankle with boot w/3 wedges. surgery 3 weeks ago tomorrow. Can get into the pool in a week. All stitches came out yesterday. no pain really. OCc rare tweak in ankle. otherwise , feels stiffness. He tried PT prior to surgery but was still having pain so MRI done confirming tear. 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 a little bit of stiffness and pain in achilles. HS is less painful now PT-OP-F Manual Assessment Start: 11/16/23 09:06 Freq: Status: Active Protocol: Document 11/16/23 09:07 [facility] (Rec: 11/16/23 11:45 [facility] [id number]) Manual Assessments Other Manual Assessments Other Manual Assessments brusing to med foot and med/ lat calf; incision looks good healing w/steri strips on top PT-OP-G Mobility & Gait Start: 11/16/23 09:06 Freq: Status: Active Protocol: Document 11/16/23 09:07 [facility] (Rec: 11/16/23 11:45 [facility] [id number]) OP Gait Assessment Comments Gait Comments amb in w/knee scooter PT-OP-K Range of Motion Start: 11/16/23 09:06 Freq: Status: Active Protocol: Document 12/27/23 14:31 [facility] (Rec: 12/27/23 16:06 [facility] [id number]) Ankle and Foot Goniometric Range of Motion Ankle and Foot Left Active Dorsiflexion with Knee Flexed 3 Dorsiflexion with Knee Extended 0 Plantarflexion 52 Inversion 36 Eversion 25 Comments comfortable range PT-OP-M Strength Start: 11/16/23 09:06 Freq: Status: Active Protocol: Document 12/27/23 14:31 [facility] (Rec: 12/27/23 16:06 [facility] [id number]) Ankle/Foot Strength Ankle and Foot Manual Muscle Testing Left Dorsiflexion (L4) 4 Good Plantarflexion (S1) 2+ Poor+ Inversion 4 Good Eversion (S1) 4 Good Comments seated press Right Dorsiflexion (L4) 5 Normal Plantarflexion (S1) 5 Normal Inversion 5 Normal Eversion (S1) 5 Normal Comments PF tested seated PT-OP-Q Treatments Start: 11/16/23 09:06 Freq: Status: Active Protocol: Document 01/12/24 09:16 [facility] (Rec: 01/12/24 10:34 [facility] [id number]) Gym Equipment Shuttle Recovery heel raise Details SL Resistance 25# navy Reps/Time 3x15 Therapeutic Exercises Standing Exercises eversion Standing Exercise Name fwd/back walk Side bilateral Reps/Minutes 20ftx2 inversion Standing Exercise Name 1.fwd/back walk Side bilateral Reps/Minutes 20ftx2 DF Standing Exercise Name back at wall Side bilateral Equipment Used 2# ankle wts on toes Reps/Minutes 20 Manual Therapy Treatment Consent Patient gave verbal consent for manual Yes treatment Soft Tissue Mobilization L calf Body Location Gastrocnemius, soleus Mobilization Type Cross-Friction,Rolling,Other Intensity/Depth Moderate Body Position Prone Comments monitored for pain. scar Body Location L calf, Achilles Mobilization Type Myofascial Release Intensity/Depth Superficial Body Position Prone Comments monitored for pain. Joint Mobilizations ankle Comments 1. calcaneus lat glide 2. talus med glide 3. AP tib FM Neuro Re-Education Treatment Balance Activities SLS Comments 1. y reach x6 B 2. SLS in inversion on elissa 2x30 PT-OP-T Assessment and Plan Start: 11/16/23 09:06 Freq: Status: Active Protocol: Document 01/12/24 09:16 [facility] (Rec: 01/12/24 10:34 [facility] [id number]) Physical Therapy Assessment Goals balance Colorer Hides And Skins Goal (LTG) Pt will be able to do 30 sec SLS B w/o inc pain 12/26-18 sec w/deviation LTG Duration 02/07 strength Short Term Goal (STG) Pt will be indep w/HEP STG Duration achieved advancing as able Colorer Hides And Skins Goal (LTG) Pt will have 5/5 L ankle strength and be able to do 20 heel raises on L w/o inc pain to allow for return to full activities 12/26-strenth gradually improving LTG Duration 02/07 ROM Short Term Goal (STG) Pt will have DF to neutral in knee ext position on L for AROM STG Duration achieved 12/26 Colorer Hides And Skins Goal (LTG) Pt will have full AROM of L ankle w/o inc pain to allow for improved gait and functional mobility. LTG Duration 01/14 FAAM Impairment 37/84 Short Term Goal (STG) Pt will improve FAAM score to at least 50/84 to show improved functional ability. STG Duration achieved 12/26 Colorer Hides And Skins Goal (LTG) Pt will improve FAAM score to at least 80/84 to show improved functional ability. LTG Duration 02/07 Assessment Summary Assessment Pt did well with new execises today but was challenged by inversion position activities. Improving balance overa nd stability. Physical Therapy Plan Frequency and Duration Frequency of Treatment 1-2x/wk Duration of treatment (weeks) 12 Plan of Care Start Date 11/16/23 Plan of Care End Date 02/08/24 Next Visit Focus/Plan Next Note Type Treatment Note Next Visit Plan focus on ankle strength and stability
--- NOTE | 2024-01-23 09:49 | PT.OTN ---
Current Diagnoses Achilles tendinitis, unspecified leg (01/23/24) Physical Therapy Treatment Note PT-OP-A Visit Information Start: 11/16/23 09:06 Freq: Status: Active Protocol: Document 01/23/24 09:08 [facility] (Rec: 01/23/24 09:49 [facility] [id number]) Out-Patient Physical Therapy Visit Information Visit Information Visit Type Treatment Note Visit Start Time 09:05 Visit Stop Time 09:45 Visit Number 10 Number of PRINTING MACHINE OPERATOR TAPE RULES Visits 0 PT-OP-B Current Condition Start: 11/16/23 09:06 Freq: Status: Active Protocol: Document 11/16/23 09:07 [facility] (Rec: 11/16/23 11:45 [facility] [id number]) Current Condition History of Current Condition Onset Date 10/26 Current Complaints L achilles repair History of Current Condition Pt saw who said he can move ankle and put 25% wt on ankle with boot w/3 wedges. surgery 3 weeks ago tomorrow. Can get into the pool in a week. All stitches came out yesterday. no pain really. OCc rare tweak in ankle. otherwise , feels stiffness. He tried PT prior to surgery but was still having pain so MRI done confirming tear. 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 taping helps PT-OP-F Manual Assessment Start: 11/16/23 09:06 Freq: Status: Active Protocol: Document 11/16/23 09:07 [facility] (Rec: 11/16/23 11:45 [facility] [id number]) Manual Assessments Other Manual Assessments Other Manual Assessments brusing to med foot and med/ lat calf; incision looks good healing w/steri strips on top PT-OP-G Mobility & Gait Start: 11/16/23 09:06 Freq: Status: Active Protocol: Document 11/16/23 09:07 [facility] (Rec: 11/16/23 11:45 [facility] [id number]) OP Gait Assessment Comments Gait Comments amb in w/knee scooter PT-OP-K Range of Motion Start: 11/16/23 09:06 Freq: Status: Active Protocol: Document 12/27/23 14:31 [facility] (Rec: 12/27/23 16:06 [facility] [id number]) Ankle and Foot Goniometric Range of Motion Ankle and Foot Left Active Dorsiflexion with Knee Flexed 3 Dorsiflexion with Knee Extended 0 Plantarflexion 52 Inversion 36 Eversion 25 Comments comfortable range PT-OP-M Strength Start: 11/16/23 09:06 Freq: Status: Active Protocol: Document 12/27/23 14:31 [facility] (Rec: 12/27/23 16:06 [facility] [id number]) Ankle/Foot Strength Ankle and Foot Manual Muscle Testing Left Dorsiflexion (L4) 4 Good Plantarflexion (S1) 2+ Poor+ Inversion 4 Good Eversion (S1) 4 Good Comments seated press Right Dorsiflexion (L4) 5 Normal Plantarflexion (S1) 5 Normal Inversion 5 Normal Eversion (S1) 5 Normal Comments PF tested seated PT-OP-Q Treatments Start: 11/16/23 09:06 Freq: Status: Active Protocol: Document 01/23/24 09:08 [facility] (Rec: 01/23/24 09:49 [facility] [id number]) Gym Equipment Shuttle Recovery heel raise Details SL Resistance 25# navy; 37# navy Shuttle Recovery Platform Stable Reps/Time 1x15 at 25#; 2x15 37# Shuttle Balance Red Comments fwd: WBOS & NBOS EO/EC & head turn trials side: wbos w/head turns & NBOS fwd: staggered stacne w/head turns Therapeutic Exercises Standing Exercises eversion Standing Exercise Name fwd/back walk Side bilateral Reps/Minutes 20ftx2 inversion Standing Exercise Name 1.fwd/back walk Side bilateral Reps/Minutes 20ftx2 DF Standing Exercise Name walk Side bilateral Reps/Minutes 20ft x2 Manual Therapy Treatment Consent Patient gave verbal consent for manual Yes treatment Soft Tissue Mobilization plantar fasica Body Location L Mobilization Type Rolling L calf Body Location Gastrocnemius, soleus Mobilization Type Cross-Friction,Rolling,Other Intensity/Depth Moderate Body Position Prone Comments monitored for pain. scar Body Location L calf, Achilles Mobilization Type Myofascial Release Intensity/Depth Superficial Body Position Prone Comments monitored for pain. Joint Mobilizations ankle Body Position Prone Comments 1. cuboid lat glide FM 2. talus med glide FM 3. AP tib FM Neuro Re-Education Treatment Balance Activities SLS Comments 1. y reach x6 B 2. SLS in inversion on elissa 2x30 L PT-OP-T Assessment and Plan Start: 11/16/23 09:06 Freq: Status: Active Protocol: Document 01/23/24 09:08 [facility] (Rec: 01/23/24 09:49 [facility] [id number]) Physical Therapy Assessment Goals balance Shelter Goal (LTG) Pt will be able to do 30 sec SLS B w/o inc pain 12/26-18 sec w/deviation LTG Duration 02/07 strength Short Term Goal (STG) Pt will be indep w/HEP STG Duration achieved advancing as able Shelter Goal (LTG) Pt will have 5/5 L ankle strength and be able to do 20 heel raises on L w/o inc pain to allow for return to full activities 12/26-strenth gradually improving LTG Duration 02/07 ROM Short Term Goal (STG) Pt will have DF to neutral in knee ext position on L for AROM STG Duration achieved 12/26 Crating And Moving Estimator Goal (LTG) Pt will have full AROM of L ankle w/o inc pain to allow for improved gait and functional mobility. LTG Duration 01/14 FAAM Impairment 37/84 Short Term Goal (STG) Pt will improve FAAM score to at least 50/84 to show improved functional ability. STG Duration achieved 12/26 Shelter Goal (LTG) Pt will improve FAAM score to at least 80/84 to show improved functional ability. LTG Duration 02/07 Assessment Summary Assessment Pt did better w/balance today and tolerated inc load w/SL heel raises. Cont to improve w /ankle stability and mobility Physical Therapy Plan Frequency and Duration Frequency of Treatment 1-2x/wk Duration of treatment (weeks) 12 Plan of Care Start Date 11/16/23 Plan of Care End Date 02/08/24 Next Visit Focus/Plan Next Note Type Progress Note Next Visit Plan take measurements and assess goal progress for POC, focus on ankle strength and stability and scar tissue mobility
--- NOTE | 2024-02-01 11:51 | PT.OTN ---
Current Diagnoses Achilles tendinitis, unspecified leg (02/01/24) Physical Therapy Treatment Note PT-OP-A Visit Information Start: 11/16/23 09:06 Freq: Status: Active Protocol: Document 02/01/24 09:08 [facility] (Rec: 02/01/24 09:51 [facility] [id number]) Out-Patient Physical Therapy Visit Information Visit Information Visit Type Progress Note Visit Start Time 09:07 Visit Stop Time 09:45 Visit Number 11 Number of OFFBEARER SEWER PIPE Visits 0 PT-OP-B Current Condition Start: 11/16/23 09:06 Freq: Status: Active Protocol: Document 11/16/23 09:07 [facility] (Rec: 11/16/23 11:45 [facility] [id number]) Current Condition History of Current Condition Onset Date 10/26 Current Complaints L achilles repair History of Current Condition Pt saw who said he can move ankle and put 25% wt on ankle with boot w/3 wedges. surgery 3 weeks ago tomorrow. Can get into the pool in a week. All stitches came out yesterday. no pain really. OCc rare tweak in ankle. otherwise , feels stiffness. He tried PT prior to surgery but was still having pain so MRI done confirming tear. 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 towards end of day plantar fascia irritates him. achilles isn't bothering too much Patient Questionnaires Foot & Ankle Ability Measure- ADL and Sports FAAM-ADL Score 78 FAAM-Sport Score 19/28 PT-OP-F Manual Assessment Start: 11/16/23 09:06 Freq: Status: Active Protocol: Document 11/16/23 09:07 [facility] (Rec: 11/16/23 11:45 [facility] [id number]) Manual Assessments Other Manual Assessments Other Manual Assessments brusing to med foot and med/ lat calf; incision looks good healing w/steri strips on top PT-OP-G Mobility & Gait Start: 11/16/23 09:06 Freq: Status: Active Protocol: Document 11/16/23 09:07 [facility] (Rec: 11/16/23 11:45 [facility] [id number]) OP Gait Assessment Comments Gait Comments amb in w/knee scooter PT-OP-K Range of Motion Start: 11/16/23 09:06 Freq: Status: Active Protocol: Document 02/01/24 09:08 [facility] (Rec: 02/01/24 09:51 [facility] [id number]) Ankle and Foot Goniometric Range of Motion Ankle and Foot Left Active Dorsiflexion with Knee Flexed 7 Dorsiflexion with Knee Extended 2 PT-OP-M Strength Start: 11/16/23 09:06 Freq: Status: Active Protocol: Document 02/01/24 09:08 [facility] (Rec: 02/01/24 09:51 [facility] [id number]) Hip Strength Hip Manual Muscle Testing Left Flexion (L2) 5 Normal Extension (S1) 5 Normal Abduction 5 Normal Adduction 5 Normal External Rotation 5 Normal Internal Rotation 5 Normal Knee Strength Knee Manual Muscle Testing Left Flexion (S2) 5 Normal Extension (L3) 5 Normal Ankle/Foot Strength Ankle and Foot Manual Muscle Testing Left Dorsiflexion (L4) 5 Normal Plantarflexion (S1) 2+ Poor+ Inversion 5 Normal Eversion (S1) 5 Normal Comments seated press- unable to get SL heel raise Right Dorsiflexion (L4) 5 Normal Plantarflexion (S1) 5 Normal Inversion 5 Normal Eversion (S1) 5 Normal Comments PF tested seated PT-OP-Q Treatments Start: 11/16/23 09:06 Freq: Status: Active Protocol: Document 02/01/24 09:08 [facility] (Rec: 02/01/24 09:51 [facility] [id number]) Gym Equipment Shuttle Recovery heel raise Details SL Resistance 37# Shuttle Recovery Platform Stable Reps/Time 3x15 ea Shuttle Balance Red Comments fwd: WBOS & NBOS EO/EC & head turn trials side: wbos w/head turns & NBOS fwd: staggered stacne w/head turns Therapeutic Exercises Sitting Exercises isometrics Sitting Exercise Name LLE MMT AROM Sitting Exercise Name L ankle DF knee ext and flex Standing Exercises heel raises Standing Exercise Name DL on step Side bilateral Reps/Minutes 20 Manual Therapy Treatment Consent Patient gave verbal consent for manual Yes treatment Soft Tissue Mobilization plantar fasica Body Location L Mobilization Type Rolling L calf Body Location Gastrocnemius, soleus Mobilization Type Cross-Friction,Rolling,Other Intensity/Depth Moderate Body Position Prone Comments monitored for pain. scar Body Location L calf, Achilles Mobilization Type Myofascial Release Intensity/Depth Superficial Body Position Prone Comments monitored for pain. Joint Mobilizations ankle Comments 1. cuboid lat glide FM standing 2. talus AP standing glide FM 3. AP tib FM standing PT-OP-T Assessment and Plan Start: 11/16/23 09:06 Freq: Status: Active Protocol: Document 02/01/24 09:08 [facility] (Rec: 02/01/24 09:51 [facility] [id number]) Physical Therapy Assessment Goals balance Usp Goal (LTG) Pt will be able to do 30 sec SLS B w/o inc pain 12/26-18 sec w/deviation 01/31-30 sec EO L; EC 3 sec B LTG Duration achieved 01/31 strength Short Term Goal (STG) Pt will be indep w/HEP STG Duration achieved advancing as able Prime Minister Goal (LTG) Pt will have 5/5 L ankle strength and be able to do 20 heel raises on L w/o inc pain to allow for return to full activities 12/26-strenth gradually improving 01/31-achieved except for heel raise ability LTG Duration 04/05 ROM Short Term Goal (STG) Pt will have DF to neutral in knee ext position on L for AROM STG Duration achieved 12/26 Usp Goal (LTG) Pt will have full AROM of L ankle w/o inc pain to allow for improved gait and functional mobility. 01/31-mild restrictions of DF LTG Duration 04/05 FAAM Impairment 37/84 Short Term Goal (STG) Pt will improve FAAM score to at least 50/84 to show improved functional ability. STG Duration achieved 12/26 Usp Goal (LTG) Pt will improve FAAM score to at least 80/84 to show improved functional ability. 01/31-78/84 LTG Duration 04/05 Assessment Summary Assessment Improved functional activity at this time. Pt able to show improved overall strength except still limited PF but improved and improved calf definition. Improved balance. Cont PT for strength and return to full activity. Physical Therapy Plan Frequency and Duration Frequency of Treatment 1x/wk to every other Duration of treatment (weeks) 8 Plan of Care Start Date 02/01/24 Plan of Care End Date 04/05/24 Therapeutic Interventions Modalities Cold Pack/Ice Massage,Electric Stimulation,Hot Packs, Infrared Therapy,Ultrasound Next Visit Focus/Plan Next Note Type Treatment Note Next Visit Plan focus on ankle strength and stability and scar tissue mobility
--- NOTE | 2024-02-01 11:52 | PT.OPPOC ---
Physical, Occupational & Speech Therapy At [facility] Current Diagnoses Achilles tendinitis, unspecified leg (02/01/24) Visit Care Team Role Provider Type Willy Ahn MD Family Provider Physician Primary Care Provider Specialty: Family Practice Address: [address] [place] [address], [id number] Email: [email or web address] Haley Vu MD Attending Provider Physician Referring Provider Specialty: Orthopedics Orthopedic Surgery Address: [address] [place] [address], [id number] Email: [email or web address] Plan Of Care PT-OP-B Current Condition Start: 11/16/23 09:06 Freq: Status: Active Protocol: Document 11/16/23 09:07 [facility] (Rec: 11/16/23 11:45 [facility] [id number]) Current Condition History of Current Condition Onset Date 10/26 Current Complaints L achilles repair History of Current Condition Pt saw who said he can move ankle and put 25% wt on ankle with boot w/3 wedges. surgery 3 weeks ago tomorrow. Can get into the pool in a week. All stitches came out yesterday. no pain really. OCc rare tweak in ankle. otherwise , feels stiffness. He tried PT prior to surgery but was still having pain so MRI done confirming tear. 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 (Rec: 02/01/24 09:51 [facility] [id number]) Physical Therapy Assessment Goals balance Custodial Goal (LTG) Pt will be able to do 30 sec SLS B w/o inc pain 12/26-18 sec w/deviation 01/31-30 sec EO L; EC 3 sec B LTG Duration achieved 01/31 strength Short Term Goal (STG) Pt will be indep w/HEP STG Duration achieved advancing as able Print Shop Assistant Goal (LTG) Pt will have 5/5 L ankle strength and be able to do 20 heel raises on L w/o inc pain to allow for return to full activities 12/26-strenth gradually improving 01/31-achieved except for heel raise ability LTG Duration 04/05 ROM Short Term Goal (STG) Pt will have DF to neutral in knee ext position on L for AROM STG Duration achieved 12/26 Print Shop Assistant Goal (LTG) Pt will have full AROM of L ankle w/o inc pain to allow for improved gait and functional mobility. 01/31-mild restrictions of DF LTG Duration 04/05 FAAM Impairment 37/84 Short Term Goal (STG) Pt will improve FAAM score to at least 50/84 to show improved functional ability. STG Duration achieved 12/26 Print Shop Assistant Goal (LTG) Pt will improve FAAM score to at least 80/84 to show improved functional ability. 01/31-78/84 LTG Duration 04/05 Assessment Summary Assessment Improved functional activity at this time. Pt able to show improved overall strength except still limited PF but improved and improved calf definition. Improved balance. Cont PT for strength and return to full activity. Physical Therapy Plan Frequency and Duration Frequency of Treatment 1x/wk to every other Duration of treatment (weeks) 8 Plan of Care Start Date 02/01/24 Plan of Care End Date 04/05/24 Therapeutic Interventions Modalities Cold Pack/Ice Massage,Electric Stimulation,Hot Packs, Infrared Therapy,Ultrasound Next Visit Focus/Plan Next Note Type Treatment Note Next Visit Plan focus on ankle strength and stability and scar tissue mobility Plan of Care Dates Plan of Care Start Date 02/01/24 Plan of Care End Date 04/05/24 Electronically Signed by: Ciera Hernandez, PT 02/01/24 2629 If you are in agreement with this Plan of Care, please return a signed and dated copy. I have reviewed this Plan of Care and certify that the skilled therapy services above are required to meet the patient?s needs. Physician Signature Date Printed Name and Credentials Clinical Instructor Signature Printed Name and Credentials
--- NOTE | 2024-02-21 08:18 | PT.OTN ---
Current Diagnoses Achilles tendinitis, unspecified leg (02/21/24) Physical Therapy Treatment Note PT-OP-A Visit Information Start: 11/16/23 09:06 Freq: Status: Active Protocol: Document 02/01/24 09:08 [facility] (Rec: 02/01/24 09:51 [facility] [id number]) Out-Patient Physical Therapy Visit Information Visit Information Visit Type Progress Note Visit Start Time 09:07 Visit Stop Time 09:45 Visit Number 11 Number of ENGINEERING MANAGER Visits 0 PT-OP-B Current Condition Start: 11/16/23 09:06 Freq: Status: Active Protocol: Document 11/16/23 09:07 [facility] (Rec: 11/16/23 11:45 [facility] [id number]) Current Condition History of Current Condition Onset Date 10/26 Current Complaints L achilles repair History of Current Condition Pt saw who said he can move ankle and put 25% wt on ankle with boot w/3 wedges. surgery 3 weeks ago tomorrow. Can get into the pool in a week. All stitches came out yesterday. no pain really. OCc rare tweak in ankle. otherwise , feels stiffness. He tried PT prior to surgery but was still having pain so MRI done confirming tear. 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 towards end of day plantar fascia irritates him. achilles isn't bothering too much Patient Questionnaires Foot & Ankle Ability Measure- ADL and Sports FAAM-ADL Score 78 FAAM-Sport Score 19/28 PT-OP-F Manual Assessment Start: 11/16/23 09:06 Freq: Status: Active Protocol: Document 11/16/23 09:07 [facility] (Rec: 11/16/23 11:45 [facility] [id number]) Manual Assessments Other Manual Assessments Other Manual Assessments brusing to med foot and med/ lat calf; incision looks good healing w/steri strips on top PT-OP-G Mobility & Gait Start: 11/16/23 09:06 Freq: Status: Active Protocol: Document 11/16/23 09:07 [facility] (Rec: 11/16/23 11:45 [facility] [id number]) OP Gait Assessment Comments Gait Comments amb in w/knee scooter PT-OP-K Range of Motion Start: 11/16/23 09:06 Freq: Status: Active Protocol: Document 02/21/24 07:31 [facility] (Rec: 02/21/24 08:18 [facility] [id number]) Ankle and Foot Goniometric Range of Motion Ankle and Foot Left Active Dorsiflexion with Knee Flexed 12 Dorsiflexion with Knee Extended 4 PT-OP-M Strength Start: 11/16/23 09:06 Freq: Status: Active Protocol: Document 02/01/24 09:08 [facility] (Rec: 02/01/24 09:51 [facility] [id number]) Hip Strength Hip Manual Muscle Testing Left Flexion (L2) 5 Normal Extension (S1) 5 Normal Abduction 5 Normal Adduction 5 Normal External Rotation 5 Normal Internal Rotation 5 Normal Knee Strength Knee Manual Muscle Testing Left Flexion (S2) 5 Normal Extension (L3) 5 Normal Ankle/Foot Strength Ankle and Foot Manual Muscle Testing Left Dorsiflexion (L4) 5 Normal Plantarflexion (S1) 2+ Poor+ Inversion 5 Normal Eversion (S1) 5 Normal Comments seated press- unable to get SL heel raise Right Dorsiflexion (L4) 5 Normal Plantarflexion (S1) 5 Normal Inversion 5 Normal Eversion (S1) 5 Normal Comments PF tested seated PT-OP-Q Treatments Start: 11/16/23 09:06 Freq: Status: Active Protocol: Document 02/21/24 07:31 [facility] (Rec: 02/21/24 08:18 [facility] [id number]) Therapeutic Exercises Standing Exercises SL Standing Exercise Name star touch Side left Reps/Minutes 12 stretch Standing Exercise Name gastroc step Side bilateral Reps/Minutes 1 min heel raises Standing Exercise Name 1. DL on step 2. SL Side bilateral Reps/Minutes 1.15 2.3 Manual Therapy Treatment Consent Patient gave verbal consent for manual Yes treatment Soft Tissue Mobilization plantar fasica Body Location L Mobilization Type Rolling L calf Body Location Gastrocnemius, soleus Mobilization Type Cross-Friction,Rolling,Other Intensity/Depth Moderate Body Position Prone Comments monitored for pain. scar Body Location L calf, Achilles Mobilization Type Myofascial Release Intensity/Depth Superficial Body Position Prone Comments monitored for pain. Joint Mobilizations ankle Comments 1. cuboid lat glide FM standing 2. calcaneus distraction 3. med cuneiform 1-2 glide PT-OP-T Assessment and Plan Start: 11/16/23 09:06 Freq: Status: Active Protocol: Document 02/21/24 07:31 [facility] (Rec: 02/21/24 08:18 [facility] [id number]) Physical Therapy Assessment Goals balance Usp Goal (LTG) Pt will be able to do 30 sec SLS B w/o inc pain 12/26- sec w/deviation 01/31-30 sec EO L; EC 3 sec B LTG Duration achieved 01/31 strength Short Term Goal (STG) Pt will be indep w/HEP STG Duration achieved advancing as able Usp Goal (LTG) Pt will have 5/5 L ankle strength and be able to do 20 heel raises on L w/o inc pain to allow for return to full activities 12/26-strenth gradually improving 01/31-achieved except for heel raise ability 02/20-can now do 3 heel raises LTG Duration 04/05 ROM Short Term Goal (STG) Pt will have DF to neutral in knee ext position on L for AROM STG Duration achieved 12/26 Usp Goal (LTG) Pt will have full AROM of L ankle w/o inc pain to allow for improved gait and functional mobility. 01/31-mild restrictions of DF LTG Duration achieved w/mild tightness FAAM Impairment 37/84 Short Term Goal (STG) Pt will improve FAAM score to at least 50/84 to show improved functional ability. STG Duration achieved 12/26 Usp Goal (LTG) Pt will improve FAAM score to at least 80/84 to show improved functional ability. 01/31-78/84 LTG Duration achieved 02/20 Assessment Summary Assessment Pt encouraged to cont calf stretching and strengthening along w/balance. Indep w/HEP and met all goals. has returning to hiking, biking, lifting and work without much issue. Occ plantar fasica pain but does well with self roll out. He is to cont HEP to cont building calf strength but is overall progressing well with this. ROM WNL. DC to HEP Physical Therapy Plan Discharge Physical Therapy Discharge Reasons Goals Met
== END 2024-03-06 10:21 | disposition home or self-care (01) ==
LOC: PHYS 07:30
PROVIDERS: Family Provider Family Medicine; PCP Family Medicine; Referring Provider Orthopaedic Surgery Foot and Ankle Surgery; Visit Provider Orthopaedic Surgery Foot and Ankle Surgery
DX: M76.60 Achilles tendinitis, unspecified leg (principal)
CPT/HCPCS: 97110; 97112; 97116; 97140; 97162

== ENCOUNTER → 2024-02-27 09:22 | Outpatient (CLI) | payer OTHER, SELFPAY ==
[2024-02-27 10:59] LABS: Add Manual Diff / Slide Review NO; Basophils Absolute Auto 0 /uL (0-100); Basophils Percent Auto 0.8 % (0-2); Eosinophils Absolute Auto 100 /uL (0-450); Eosinophils Percent Auto 1.9 % (2-4); Hematocrit 41.6 % (41-53); Hemoglobin 14.9 g/dL (13.5-17.5); Lymphocytes Absolute Auto 1700 /uL (1100-4500); Lymphocytes Percent Auto 36.4 % (25-40); Mean Corpuscular HGB Conc 35.7 % (30-36); Mean Corpuscular Hemoglobin 34.5 PG (26-34); Mean Corpuscular Volume 96.6 fL (80-100); Monocytes Absolute Auto 700 /uL (0-900); Monocytes Percent Auto 14.2 % (3-14); Neutrophils Absolute Auto 2200 /uL (1500-7000); Neutrophils Percent Auto 46.7 % (50-75); Platelet Count 269 X10^3/uL (150-400); Red Blood Cell Count 4.31 X10^6/uL (4.5-5.9); Red Cell Distribution Width 12.5 % (11.6-14.8); White Blood Cell Count 4.6 X10^3/uL (4.5-11.0)
[2024-02-27 11:10] LABS: Alanine Aminotransferase 49 IU/L (<50); Albumin 4.6 g/dL (3.5-5.0); Albumin Globulin Ratio 1.5 (1.0-2.8); Alkaline Phosphatase 59 U/L (38-126); Aspartate Aminotransferase 37 IU/L (17-59); BUN Creatinine Ratio 15.2 (6-22); Bilirubin Total 0.9 mg/dL (0.2-1.3); Blood Urea Nitrogen 12 mg/dL (9-20); Calcium 9.6 mg/dL (8.4-10.2); Carbon Dioxide 22 mmol/L (22-32); Chloride 98 mmol/L (98-107); Cholesterol 192 mg/dL (140-199); Estimated Glomerular Filt Rate > 60 mL/min (>60); Glucose 105 mg/dL (80-110); HDL Cholesterol 72 mg/dL (40-60); HEMOLYSIS < 15 (0-50); LDL Cholesterol Calculated 101 mg/dL (<100); Potassium 4.7 mmol/L (3.4-5.1); Sodium 130 mmol/L (137-145); Total Protein 7.6 g/dL (6.3-8.2); Triglycerides 94 mg/dL (35-150)
[2024-02-27 11:19] LABS: Creatinine Urine Random 192.67 mg/dL
[2024-02-27 11:27] LABS: Microalbumin Urine Random 9.9 mg/dL (0-1.6)
[2024-02-27 11:38] LABS: Prostate Specific Antigen Scrn 0.252 ng/mL (0.1-4.0)
[2024-02-27 11:42] LABS: TSH w/ Reflex to FT4 1.33 uIU/mL (0.47-4.68)
[2024-02-28 04:09] LABS: Apolipoprotein B 80 mg/dL (<90)
== END ==
PROVIDERS: Family Provider Family Medicine; PCP Family Medicine; Referring Provider Family Medicine; Visit Provider Family Medicine
DX: I10 Essential (primary) hypertension (principal); E87.1 Hypo-osmolality and hyponatremia; E78.5 Hyperlipidemia, unspecified; Z12.5 Encounter for screening for malignant neoplasm of prostate; M76.60 Achilles tendinitis, unspecified leg
CPT/HCPCS: 36415; 80053; 80061; 82043; 82172; 82570; 84443; 85025; G0103

== ENCOUNTER → 2024-04-09 08:36 | Outpatient (CLI) | payer OTHER, SELFPAY ==
--- NOTE | 2024-04-09 08:37 | DI.RAD.S_ITS ---
PROCEDURE: XR LUMBAR SPINE 2-3V INDICATIONS: Lumbar pain TECHNIQUE: 3 views of the lumbar spine were acquired. COMPARISON: [facility], CR, XR LUMBAR SPINE 2-3V, 05/19/2021, 10:19. FINDINGS: Lumbar spine curvature and alignment: Normal. Bones: Minimal chronic wedging of the T11-T12 and L1 vertebral bodies appreciated.. Disc spaces: Mild T11-T12, mild L3-4 moderate L4-5 degenerative disc disease noted. There are large anterior osteophytes at L2-3, L3-4 and L4-5. Severe L4-5 and L5-S1 degenerative facet disease noted. Soft tissues: No soft tissue swelling, calcification or mass. IMPRESSION: Degeneration. Dictated by: Huey Campos M.D. on 04/10/2024 at 9:15 Approved by: Huey Campos M.D. on 04/10/2024 at 9:16
== END ==
PROVIDERS: Family Provider Family Medicine; PCP Family Medicine; Referring Provider Nurse Practitioner Family; Visit Provider Nurse Practitioner Family
DX: M51.360 Other intervertebral disc degeneration, lumbar region with discogenic back pain only (principal); M47.816 Spondylosis without myelopathy or radiculopathy, lumbar region; M47.817 Spondylosis without myelopathy or radiculopathy, lumbosacral region
CPT/HCPCS: 72100

== ENCOUNTER → 2024-05-11 09:16 | Outpatient (CLI) | payer OTHER, SELFPAY ==
--- NOTE | 2024-05-11 09:17 | DI.MRI.S_ITS ---
PROCEDURE: MR LUMBAR SPINE WO CON INDICATIONS: acute on chronic lumbar pain TECHNIQUE: Noncontrast sagittal T1 spin echo and T2 fast echo, sagittal STIR, and T2 fast spin echo through the lumbar spine. In cases with scoliosis, additional coronal T2 fast spin echo may be performed. COMPARISON: [facility], CR, XR LUMBAR SPINE 2-3V, 04/09/2024, 8:36. FINDINGS: Image quality: Excellent. Alignment and Curvature: There is mild retrolisthesis seen at L5-S1. Bone Marrow: Marrow is of normal overall signal. No acute vertebral body compression fractures. Spinal Cord: Conus medullaris terminates at the L1 level. Visualized cord demonstrates normal signal and size. Paraspinous Soft Tissues: No paravertebral masses. T11-T12: Prominent bridging anterior osteophytes can be seen. Moderate bilateral neural foraminal narrowing is seen. No central canal narrowing is seen. T12-L1: The disc height is well-preserved. Loss of disc signal is seen at this level. No significant neural foraminal or central canal narrowing can be seen. L1-L2: The disc height and disk signal are well-preserved. Mild generalized disc bulge is seen. Mild facet joint hypertrophy is seen. Moderate bilateral neural foraminal narrowing is seen. No central canal narrowing is seen. L2-L3: The disc height and disk signal are well-preserved. Mild generalized disc bulge is seen. There is a superimposed central disc protrusion. Mild facet joint hypertrophy is seen. Moderate bilateral neural foraminal narrowing is seen. Mild central canal narrowing is seen. L3-L4: The disc height and disk signal are well-preserved. Bridging endplate osteophytes are seen. Mild generalized disc bulge is seen. Mild to moderate facet hypertrophy can be seen. At least moderate bilateral neural foraminal narrowing is seen. Moderate central canal narrowing is seen. L4-L5: Mild loss of disc height is seen. Loss of disc signal is seen. At least moderate disc bulge is seen. There is a central disc protrusion. Bridging endplate osteophytes are seen. Moderate facet joint hypertrophy is seen. There is at least moderate left-sided and moderate to severe right-sided neural foraminal narrowing. There is a degree of compression seen upon the exiting right L4 nerve root. Moderate to severe central canal narrowing is seen, as on series 6, image 18. L5-S1: The disc height is well-preserved. Loss of disc signal is seen at this level. Mild generalized disc bulge is seen. There is a superimposed central disc protrusion. There is a focal annular fissure seen posteriorly. There is moderate right-sided and mild left-sided facet hypertrophy. There is moderate to severe bilateral neural foraminal narrowing seen, with an associated degree of compression seen upon the exiting nerve roots. Mild to moderate central canal narrowing is seen. IMPRESSION: Lumbar spine degenerative changes are seen, which are worst inferiorly. Dictated by: Jason Farrar M.D. on 05/11/2024 at 9:24 Approved by: Jason Farrar M.D. on 05/11/2024 at 9:28
== END ==
PROVIDERS: Family Provider Family Medicine; PCP Family Medicine; Referring Provider Physician Assistant; Visit Provider Physician Assistant
DX: M47.816 Spondylosis without myelopathy or radiculopathy, lumbar region (principal); M54.50 Low back pain, unspecified; G89.29 Other chronic pain
CPT/HCPCS: 72148

== ENCOUNTER → 2024-08-15 10:00 | Outpatient (CLI) | payer OTHER, SELFPAY ==
[2024-08-15 11:08] LABS: Creatinine Urine Random 79.23 mg/dL
[2024-08-15 11:15] LABS: Microalbumin Urine Random 4.6 mg/dL (0-1.6)
== END ==
PROVIDERS: Family Provider Family Medicine; PCP Family Medicine; Referring Provider Family Medicine; Visit Provider Family Medicine
DX: Z00.01 Encounter for general adult medical examination with abnormal findings (principal); R80.9 Proteinuria, unspecified; I10 Essential (primary) hypertension; E87.1 Hypo-osmolality and hyponatremia; E78.5 Hyperlipidemia, unspecified
CPT/HCPCS: 82043; 82570

== ENCOUNTER → 2025-03-01 07:06 | Outpatient (CLI) | payer OTHER, MEDICARE, SELFPAY ==
[2025-03-01 08:28] LABS: Add Manual Diff / Slide Review NO; Hematocrit 40.9 % (41-53); Hemoglobin 14.3 g/dL (13.5-17.5); Lymphocytes Absolute Auto 1100 /uL (1100-4500); Mean Corpuscular HGB Conc 35.1 % (30-36); Mean Corpuscular Hemoglobin 34.0 PG (26-34); Mean Corpuscular Volume 96.9 fL (80-100); Platelet Count 291 X10^3/uL (150-400)
[2025-03-01 08:41] LABS: Alanine Aminotransferase 51 IU/L (<50); Albumin 4.8 g/dL (3.5-5.0); Albumin Globulin Ratio 1.5 (1.0-2.8); Alkaline Phosphatase 53 U/L (38-126); Blood Urea Nitrogen 14 mg/dL (9-20); Calcium 9.6 mg/dL (8.4-10.2); Carbon Dioxide 24 mmol/L (22-32); Chloride 96 mmol/L (98-107); Cholesterol 205 mg/dL (140-199); Estimated Glomerular Filt Rate > 60 mL/min (>60); Globulin 3.1 g/dL (1.7-4.1); Glucose 116 mg/dL (70-99); HDL Cholesterol 102 mg/dL (40-60); HEMOLYSIS < 15 (0-50); Potassium 5.0 mmol/L (3.4-5.1); Sodium 130 mmol/L (137-145); Total Protein 7.9 g/dL (6.3-8.2); Triglycerides 103 mg/dL (35-150)
[2025-03-01 09:09] LABS: Microalbumi Creatinin Ratio Ur 136.0 ug/mg CR (<30)
[2025-03-01 09:14] LABS: TSH w/ Reflex to FT4 1.67 uIU/mL (0.47-4.68)
== END ==
LOC: LAB 07:09
PROVIDERS: PCP Family Medicine; Referring Provider Family Medicine; Visit Provider Family Medicine
DX: Z00.01 Encounter for general adult medical examination with abnormal findings (principal); I10 Essential (primary) hypertension; E87.1 Hypo-osmolality and hyponatremia; E78.2 Mixed hyperlipidemia; Z12.5 Encounter for screening for malignant neoplasm of prostate
CPT/HCPCS: 36415; 80053; 80061; 82043; 82172; 82570; 84443; 85025; G0103